=== PATIENT | female | born 1960 | race Caucasian/White ===

== ENCOUNTER 2019-02-19 11:22 | Emergency (ER) | payer MEDICARE, OTHER ==
[2019-02-19 11:44] VITALS: BP 120/77; PULSE 70; RESP 18; TEMP 98.2
--- NOTE | 2019-02-19 11:59 | ED ---
ENT HPI - General Stated complaint: left eye swelling Time Seen by Provider: 02/19/19 11:34 Source: patient, RN notes reviewed, old records reviewed Mode of arrival: ambulatory Limitations: no limitations - History of Present Illness Initial comments: Patient is a 50-year-old female who presents emergency department today complaining of periorbital left eye swelling for the past 2 days. Patient states that she hadn't a "UTI" a few weeks ago. She believes that she scratched the skin around her eye and this led to an infection at this time. She denies any fevers or chills. She denies any pain with extraocular eye movements. She denies any headaches, visual changes. Patient states that she has had no recent sinus drainage or ear pain. No upper respiratory cough or other symptoms. Patient states that she does not require glasses or contacts. She denies any specific eye drainage. - Related Data Home Medications Medication Instructions Recorded Confirmed Atorvastatin [Lipitor] 10 mg PO DAILY 11/05/14 04/06/16 Cholecalciferol [Vitamin D3] 5,000 unit PO DAILY 11/05/14 04/06/16 Fenofibrate Nanocrystallized 145 mg PO DAILY 11/05/14 04/06/16 [Tricor] LORazepam [Ativan] 1 mg PO DAILY PRN 11/05/14 04/06/16 Levothyroxine Sodium [Synthroid] 150 mcg PO DAILY 11/05/14 04/06/16 Lisinopril [Prinivil] 10 mg PO DAILY 11/05/14 04/06/16 Seis [place] Carbonate 300 mg PO BID 11/05/14 04/06/16 Meloxicam [Mobic] 7.5 mg PO BID 11/05/14 04/06/16 Propranolol [Inderal] 20 mg PO BID 11/05/14 04/06/16 Trihexyphenidyl HCl [Artane] 5 mg PO BID 11/05/14 04/06/16 Previous Rx's Medication Instructions Recorded HYDROcodone/APAP 5-325MG [[place] 5] 1 - 2 each PO Q4H PRN #20 tab 11/06/14 Amoxic-Pot Clav 875-125Mg 1 tab PO Q12HR #20 tablet 02/19/19 [Augmentin 875-125] Allergies Allergy/AdvReac Type Severity Reaction Status Date / Time No Known Allergies Allergy Verified 04/06/16 22:52 Review of Systems ROS Statement: Those systems with pertinent positive or pertinent negative responses have been documented in the HPI. ROS Other: All systems not noted in ROS Statement are negative. Past Medical History Past Medical History: Hyperlipidemia, Thyroid Disorder History of Any Multi-Drug Resistant Organisms: None Reported Past Surgical History: Section, Cholecystectomy, Tubal Ligation Past Anesthesia/Blood Transfusion Reactions: No Reported Reaction Past Psychological History: Depression Smoking Status: Current every day smoker Past Alcohol Use History: None Reported Past Drug Use History: None Reported - Past Family History Mother Family Medical History: Cancer General Exam - General Exam Comments Initial Comments: 58-year-old female. Alert and oriented 3. No distress. Limitations: no limitations General appearance: alert, in no apparent distress Head exam: Present: atraumatic, normocephalic, normal inspection Eye exam: Present: PERRL, EOMI. Absent: normal appearance (Patient has surrounding erythema and periorbital swelling over the left eye.), scleral icterus, conjunctival injection, periorbital swelling ENT exam: Present: normal exam, mucous membranes moist Neck exam: Present: normal inspection. Absent: tenderness, meningismus, lymphadenopathy Respiratory exam: Present: normal lung sounds bilaterally. Absent: respiratory distress, wheezes, rales, rhonchi, stridor Cardiovascular Exam: Present: regular rate, normal rhythm, normal heart sounds. Absent: systolic murmur, diastolic murmur, rubs, gallop, clicks GI/Abdominal exam: Present: soft, normal bowel sounds. Absent: distended, tenderness, guarding, rebound, rigid Extremities exam: Present: normal inspection, full ROM, normal capillary refill. Absent: tenderness, pedal edema, joint swelling, calf tenderness Back exam: Present: normal inspection Neurological exam: Present: alert, oriented X3, CN II-XII intact Psychiatric exam: Present: normal affect, normal mood Skin exam: Present: warm, dry, intact, normal color. Absent: rash Course Vital Signs 02/19/19 11:40 Temperature 98.2 F Pulse Rate 70 Respiratory 18 Rate Blood Pressure 120/77 O2 Sat by Pulse 91 L Oximetry Medical Decision Making - Medical Decision Making Patient is a 50-year-old female presents with 3 days of left eye periorbital swelling. She believes that she scratched the corner of her eye. which led to his infection this time. Patient appears to have some periorbital cellulitis. Denies any eye pain or drainage. She otherwise Patient likely well. No fevers headaches or visual disturbances. I discussed the Patient were to develop any of the symptoms to return to emergency department for reevaluation. At this time I'll put the Patient on antibiotics. I discussed proper follow-up with primary care doctor and following up with her PCP on Wednesday. Patient agrees to treatment plan will comply. Return parameters were discussed. Disposition Clinical Impression: Periorbital cellulitis of left eye Disposition: HOME SELF-CARE Condition: Good Instructions (If sedation given, give patient instructions): Periorbital Cellulitis in Adults (ED) Additional Instructions: Patient advised a take the antibiotics. Follow-up with primary care doctor. Return to the emergency department if any alarming signs or symptoms occur. Prescriptions: Amoxic-Pot Clav 875-125Mg [Augmentin 875-125] 1 tab PO Q12HR #20 tablet Is patient prescribed a controlled substance at d/c from ED?: No Referrals: Devyn Worrell MD [Primary Care Provider] - 1-2 days Time of Disposition: 11:53
== END 2019-02-19 12:10 | disposition home or self-care (01) ==
LOC: EC 11:22
DX: L03.213 Periorbital cellulitis (principal); E78.5 Hyperlipidemia, unspecified; E07.9 Disorder of thyroid, unspecified; F17.200 Nicotine dependence, unspecified, uncomplicated; Z79.1 Long term (current) use of non-steroidal anti-inflammatories (NSAID); Z79.890 Hormone replacement therapy; Z79.899 Other long term (current) drug therapy
CPT/HCPCS: 99283

== ENCOUNTER → 2019-04-20 | Outpatient (CLI) | payer MEDICARE, OTHER ==
--- NOTE | 2019-04-21 09:06 | MM ---
Reason for exam: screening (asymptomatic). Last mammogram was performed 1 year and 6 months ago. History: Patient is postmenopausal. Family history of breast cancer in mother at age 60. Excisional biopsy of the left breast, October 2014. Benign US biopsy breast VAD LT of the left breast, October 18, 2014. Physical Findings: A clinical breast exam by your physician is recommended on an annual basis and results should be correlated with mammographic findings. MG 3D Screening Mammo W/Cad Bilateral CC and MLO view(s) were taken. Prior study comparison: October 29, 2017, bilateral MG 3d screening mammo w/cad. July 22, 2016, bilateral MG 3d diag mammo w/cad GERTRUDIS. There are scattered fibroglandular densities. There is no discrete abnormality. No significant changes when compared with prior studies. ASSESSMENT: Negative, BI-RAD 1 RECOMMENDATION: Routine screening mammogram of both breasts in 1 year.
== END | disposition home or self-care (01) ==
LOC: RADMAMWWP 11:41
PROVIDERS: ATTEND Family Medicine
DX: Z12.31 Encounter for screening mammogram for malignant neoplasm of breast (principal)
CPT/HCPCS: 77063; 77067

== ENCOUNTER 2019-07-11 13:33 | Inpatient (IN) | payer MEDICARE, MEDICAID ==
[2019-07-11 14:36] LABS: Glucose,Whole Blood 108 mg/dL (75-99)
[2019-07-11 15:35] LABS: Basophils % (A) 1 %; Eosinophils # (A) 0.1 k/uL (0-0.7); Eosinophils % (A) 1 %; HCT 46.3 % (34.0-46.0); HGB 16.4 gm/dL (11.4-16.0); Lymphocytes # (A) 1.4 k/uL (1.0-4.8); Lymphocytes % (A) 16 %; MCH 31.5 pg (25.0-35.0); MCHC 35.4 g/dL (31.0-37.0); MCV 89.1 fL (80.0-100.0); Mean Platelet Volume 6.8; Monocytes # (A) 0.4 k/uL (0-1.0); Monocytes % (A) 5 %; Neutrophils # (A) 6.7 k/uL (1.3-7.7); Neutrophils % (A) 76 %; Platelet Count 234 k/uL (150-450); RBC 5.19 m/uL (3.80-5.40); WBC 8.8 k/uL (3.8-10.6)
[2019-07-11 15:43] LABS: ALT 29 U/L (9-52); AST 25 U/L (14-36); Acetaminophen <10.0 ug/mL; African American GFR (CKD) >90 (>60 ml/min/1.73 sqM); Albumin 4.3 g/dL (3.5-5.0); Alcohol <10 mg/dL; Alkaline Phosphatase 82 U/L (38-126); Anion Gap 9 mmol/L; Blood Urea Nitrogen 5 mg/dL (7-17); Calcium 10.3 mg/dL (8.4-10.2); Carbon Dioxide 22 mmol/L (22-30); Chloride 111 mmol/L (98-107); Creatine Kinase 64 U/L (30-135); Glucose 97 mg/dL (74-99); Potassium 3.4 mmol/L (3.5-5.1); Salicylate <1.0 mg/dL; Sodium 142 mmol/L (137-145); Total Bilirubin 0.6 mg/dL (0.2-1.3); Total Protein 7.1 g/dL (6.3-8.2)
[2019-07-11 15:46] LABS: Appearance,Urine Clear (Clear); Bilirubin,Urine Negative (Negative); Blood,Urine Negative (Negative); Color,Urine Light Yellow; Glucose,Urine (UA) Negative (Negative); Ketones,Urine Negative (Negative); Leukocyte Esterase,Urine Negative (Negative); Nitrite,Urine Negative (Negative); PH, Urine 6.5 (5.0-8.0); Protein,Urine Negative (Negative); Specific Gravity,Urine 1.002 (1.001-1.035); Urobilinogen,Urine <2.0 mg/dL (<2.0)
--- NOTE | 2019-07-11 15:46 | XR ---
EXAMINATION TYPE: XR chest 2V DATE OF EXAM: 07/11/2019 COMPARISON: NONE HISTORY: Altered mental status TECHNIQUE: Frontal and lateral views of the chest are obtained. FINDINGS: There is no focal air space opacity, pleural effusion, or pneumothorax seen. The cardiac silhouette size is within normal limits. The osseous structures are intact. Patient is rotated. The re are overlying cardiac leads. IMPRESSION: No acute cardiopulmonary process.
[2019-07-11 16:07] LABS: INR 0.9 (<1.2); Partial Thromboplastin Time 22.8 sec (22.0-30.0); Prothrombin Time 9.6 sec (9.0-12.0)
[2019-07-11 16:09] LABS: Amphetamine Screen,Urine Not Detected (NotDetected); Barbiturate Screen,Urine Not Detected (NotDetected); Benzodiazepines Screen,Urine Detected (NotDetected); Cocaine Screen,Urine Not Detected (NotDetected); Methadone Screen, Urine Not Detected (NotDetected); Opiate Screen,Urine Not Detected (NotDetected); Oxycodone Screen, Urine Not Detected (NotDetected); Phencyclidine Screen,Urine Not Detected (NotDetected); Tricyclic Antidepressant,Urine Not Detected (NotDetected); Urn Cannabinoid Scrn Detected (NotDetected)
--- NOTE | 2019-07-11 16:23 | ED ---
General Adult HPI <HoldeningaKamlesh Garrick - Last Filed: 07/11/19 19:18> - General Source: EMS Mode of arrival: EMS Limitations: altered mental status <Vinnie Benedictah Sandra - Last Filed: 07/16/19 00:27> - General Chief complaint: Psychiatric Symptoms Stated complaint: Mental health Time Seen by Provider: 07/11/19 13:50 - History of Present Illness Initial comments: The patient is a 58-year-old female with past history of bipolar disorder on lithium who presents emergency room in with abnormal behavior. She was found outside of her home stating that she did not want to go back into her home. She had 4 cigarettes that were in her mouth, all of which were unlit. She had a dog leash tied to a car. When asked why she had it, she reported she didn't want her car to get stolen. The patient not provide any additional history. Therefore she was brought into the emergency department. It is noted the p atient's history that she has been on lithium however this is all we can find. She has never been hospital at her facility for psychiatric issues. The remainder of the HPI is limited because of the patient's current condition (Felicia Benedict) - Related Data Home Medications Medication Instructions Recorded Confirmed Atorvastatin [Lipitor] 10 mg PO DAILY 11/05/14 07/11/19 LORazepam [Ativan] 0.5 - 1 mg PO DAILY PRN 11/05/14 07/11/19 Levothyroxine Sodium [Synthroid] 150 mcg PO DAILY 11/05/14 07/11/19 Trihexyphenidyl HCl [Artane] 5 mg PO BID 11/05/14 07/11/19 Fenofibrate [Lofibra] 160 mg PO DAILY 07/11/19 07/11/19 [place] Carbonate [Lithobid] 300 mg PO QAM 07/11/19 07/11/19 [place] Carbonate [Lithobid] 600 mg PO HS 07/11/19 07/11/19 Multivitamins, Thera [Multivitamin 1 tab PO DAILY 07/11/19 07/11/19 (formulary)] Oxybutynin Xl [Ditropan Xl] 5 mg PO DAILY 07/11/19 07/11/19 Propranolol HCl [Propranolol HCl 60 mg PO DAILY 07/11/19 07/11/19 ER] fluPHENAZine DECANOATE [Prolixin 25 mg IM Q14D 07/11/19 07/11/19 Decanoate] Allergies Allergy/AdvReac Type Severity Reaction Status Date / Time No Known Allergies Allergy Verified 07/15/19 21:51 Review of Systems ROS Other: All systems not noted in ROS Statement are negative. <NancypaulingaDarshanjair Mccauley - Last Filed: 07/11/19 19:18> ROS Other: All systems not noted in ROS Statement are negative. <Felicia Benedict - Last Filed: 07/16/19 00:27> ROS Statement: Those systems with pertinent positive or pertinent negative responses have been documented in the HPI. Past Medical History Past Medical History: Hyperlipidemia, Thyroid Disorder History of Any Multi-Drug Resistant Organisms: None Reported Past Surgical History: Section, Cholecystectomy, Tubal Ligation Past Anesthesia/Blood Transfusion Reactions: No Reported Reaction Past Psychological History: Depression Smoking Status: Current every day smoker Past Alcohol Use History: None Reported Past Drug Use History: None Reported - Past Family History Mother Family Medical History: Cancer <Felicia Benedict - Last Filed: 07/16/19 00:27> General Exam Limitations: altered mental status General appearance: alert, in no apparent distress Head exam: Present: atraumatic, normocephalic, normal inspection Eye exam: Present: normal appearance, PERRL, EOMI. Absent: scleral icterus, conjunctival injection, periorbital swelling ENT exam: Present: normal exam, mucous membranes moist Neck exam: Present: normal inspection. Absent: tenderness, meningismus, lymphadenopathy Respiratory exam: Present: normal lung sounds bilaterally. Absent: respiratory distress, wheezes, rales, rhonchi, stridor Cardiovascular Exam: Present: regular rate, normal rhythm, normal heart sounds. Absent: systolic murmur, diastolic murmur, rubs, gallop, clicks GI/Abdominal exam: Present: soft, normal bowel sounds. Absent: distended, tenderness, guarding, rebound, rigid Extremities exam: Present: normal inspection, full ROM, normal capillary refill. Absent: tenderness, pedal edema, joint swelling, calf tenderness Back exam: Present: normal inspection Neurological exam: Present: alert, altered, CN II-XII intact Psychiatric exam: Present: anxious, flat affect Skin exam: Present: warm, dry, intact, normal color. Absent: rash <Felicia Benedict - Last Filed: 07/16/19 00:27> Course <Kamlesh Santiago - Last Filed: 07/11/19 19:18> Vital Signs 07/11/19 07/11/19 13:49 19:24 Temperature 98.9 F 98.4 F Pulse Rate 87 80 Respiratory 18 18 Rate Blood Pressure 119/91 116/58 O2 Sat by Pulse 94 L 94 L Oximetry - Reevaluation(s) Reevaluation #1: 07/11/19 19:18 She was made medically cleared seen and evaluated by psychiatry (Kamlesh Santiago) EKG Findings - EKG Comments: EKG Findings:: EKG demonstrates a normal sinus rhythm with a ventricular rate of 80. DE interval 200. QRS 80. QTC 477. There are no acute ST segment elevations or depressions concerning for ischemic changes sent for Parkinson White or Brugada <Vinnie Benedictah Sandra - Last Filed: 07/16/19 00:27> Medical Decision Making - Lab Data Result diagrams: 07/11/19 15:23 07/11/19 15:23 <Kamlesh Santiago - Last Filed: 07/11/19 19:18> - Lab Data Result diagrams: 07/11/19 15:23 07/13/19 09:47 <Felicia Benedict - Last Filed: 07/16/19 00:27> - Medical Decision Making 58 female will be admitted for psychiatric inpatient evaluation and treatment, patient consents to treatment (Kamlesh Santiago) Upon arrival the patient is placed in room 14. A thorough history and physical exam was attempted. I did recommend laboratory studies and a CT of the patient's brain. Laboratory studies are essentially unremarkable. He is therapeutic lithium level at 0.6. Urine drug screen is positive for benzos and marijuana. Urinalysis is negative. CT of the patient's brain demonstrates no acute findings. Chest x-ray demonstrates no acute cardiopulmonary process. I reevaluated the patient and she continues to not be able to tell me anything. We called the patient's daughter who states that she is never acted like this before. We then called [facility] as the patient is currently at a patient there. She did call them 3 times today. Because of these phone calls, he did prompt [facility] to call EMS who brought the patient into the emergency room. I did ask him he has to evaluate the patient. We are currently awaiting input from the psychiatrist (Felicia Benedict) - Lab Data Lab Results 07/11/19 07/11/19 07/11/19 Range/Units 14:34 15:23 15:23 WBC (3.8-10.6) k/uL RBC (3.80-5.40) m/uL Hgb (11.4-16.0) gm/dL Hct (34.0-46.0) % MCV (80.0-100.0) fL MCH (25.0-35.0) pg MCHC (31.0-37.0) g/dL RDW (11.5-15.5) % Plt Count (150-450) k/uL Neutrophils % % Lymphocytes % % Monocytes % % Eosinophils % % Basophils % % Neutrophils # (1.3-7.7) k/uL Lymphocytes # (1.0-4.8) k/uL Monocytes # (0-1.0) k/uL Eosinophils # (0-0.7) k/uL Basophils # (0-0.2) k/uL PT (9.0-12.0) sec INR (<1.2) APTT (22.0-30.0) sec Sodium 142 (137-145) mmol/L Potassium 3.4 L (3.5-5.1) mmol/L Chloride 111 H (98-107) mmol/L Carbon Dioxide 22 (22-30) mmol/L Anion Gap 9 mmol/L BUN 5 L (7-17) mg/dL Creatinine 0.82 (0.52-1.04) mg/dL Est GFR (CKD-EPI)AfAm >90 (>60 ml/min/1.73 sqM) Est GFR (CKD-EPI)NonAf 79 (>60 ml/min/1.73 sqM) Glucose 97 (74-99) mg/dL POC Glucose (mg/dL) 108 H (75-99) mg/dL POC Glu Cardiology Coordinator ID Radha Peng Calcium 10.3 H (8.4-10.2) mg/dL Total Bilirubin 0.6 (0.2-1.3) mg/dL AST 25 (14-36) U/L ALT 29 (9-52) U/L Alkaline Phosphatase 82 (38-126) U/L Ammonia 9 (<30) umol/L Creatine Kinase 64 (30-135) U/L Total Protein 7.1 (6.3-8.2) g/dL Albumin 4.3 (3.5-5.0) g/dL Urine Color Urine Appearance (Clear) Urine pH (5.0-8.0) Ur Specific [place] (1.001-1.035) Urine Protein (Negative) Urine Glucose (UA) (Negative) Urine Ketones (Negative) Urine Blood (Negative) Urine Nitrite (Negative) Urine Bilirubin (Negative) Urine Urobilinogen (<2.0) mg/dL Ur Leukocyte Esterase (Negative) Salicylates <1.0 mg/dL Urine Opiates Screen (NotDetected) Ur Oxycodone Screen (NotDetected) Urine Methadone Screen (NotDetected) Ur Propoxyphene Screen (NotDetected) Acetaminophen <10.0 ug/mL Ur Barbiturates Screen (NotDetected) U Tricyclic Antidepress (NotDetected) Ur Phencyclidine Scrn (NotDetected) Ur Amphetamines Screen (NotDetected) U Methamphetamines Scrn (NotDetected) U Benzodiazepines Scrn (NotDetected) [place] mmol/L Urine Cocaine Screen (NotDetected) U Marijuana (THC) Screen (NotDetected) Serum Alcohol <10 mg/dL 07/11/19 07/11/19 07/11/19 Range/Units 15:23 15:23 15:23 WBC 8.8 (3.8-10.6) k/uL RBC 5.19 (3.80-5.40) m/uL Hgb 16.4 H (11.4-16.0) gm/dL Hct 46.3 H (34.0-46.0) % MCV 89.1 (80.0-100.0) fL MCH 31.5 (25.0-35.0) pg MCHC 35.4 (31.0-37.0) g/dL RDW 13.0 (11.5-15.5) % Plt Count 234 (150-450) k/uL Neutrophils % 76 % Lymphocytes % 16 % Monocytes % 5 % Eosinophils % 1 % Basophils % 1 % Neutrophils # 6.7 (1.3-7.7) k/uL Lymphocytes # 1.4 (1.0-4.8) k/uL Monocytes # 0.4 (0-1.0) k/uL Eosinophils # 0.1 (0-0.7) k/uL Basophils # 0.0 (0-0.2) k/uL PT 9.6 (9.0-12.0) sec INR 0.9 (<1.2) APTT 22.8 (22.0-30.0) sec Sodium (137-145) mmol/L Potassium (3.5-5.1) mmol/L Chloride (98-107) mmol/L Carbon Dioxide (22-30) mmol/L Anion Gap mmol/L BUN (7-17) mg/dL Creatinine (0.52-1.04) mg/dL Est GFR (CKD-EPI)AfAm (>60 ml/min/1.73 sqM) Est GFR (CKD-EPI)NonAf (>60 ml/min/1.73 sqM) Glucose (74-99) mg/dL POC Glucose (mg/dL) (75-99) mg/dL POC Glu Cardiology Coordinator ID Calcium (8.4-10.2) mg/dL Total Bilirubin (0.2-1.3) mg/dL AST (14-36) U/L ALT (9-52) U/L Alkaline Phosphatase (38-126) U/L Ammonia (<30) umol/L Creatine Kinase (30-135) U/L Total Protein (6.3-8.2) g/dL Albumin (3.5-5.0) g/dL Urine Color Light Yellow Urine Appearance Clear (Clear) Urine pH 6.5 (5.0-8.0) Ur Specific [place] 1.002 (1.001-1.035) Urine Protein Negative (Negative) Urine Glucose (UA) Negative (Negative) Urine Ketones Negative (Negative) Urine Blood Negative (Negative) Urine Nitrite Negative (Negative) Urine Bilirubin Negative (Negative) Urine Urobilinogen <2.0 (<2.0) mg/dL Ur Leukocyte Esterase Negative (Negative) Salicylates mg/dL Urine Opiates Screen Not Detected (NotDetected) Ur Oxycodone Screen Not Detected (NotDetected) Urine Methadone Screen Not Detected (NotDetected) Ur Propoxyphene Screen Not Detected (NotDetected) Acetaminophen ug/mL Ur Barbiturates Screen Not Detected (NotDetected) U Tricyclic Antidepress Not Detected (NotDetected) Ur Phencyclidine Scrn Not Detected (NotDetected) Ur Amphetamines Screen Not Detected (NotDetected) U Methamphetamines Scrn Not Detected (NotDetected) U Benzodiazepines Scrn Detected H (NotDetected) [place] mmol/L Urine Cocaine Screen Not Detected (NotDetected) U Marijuana (THC) Screen Detected H (NotDetected) Serum Alcohol mg/dL 07/11/19 Range/Units 15:23 WBC (3.8-10.6) k/uL RBC (3.80-5.40) m/uL Hgb (11.4-16.0) gm/dL Hct (34.0-46.0) % MCV (80.0-100.0) fL MCH (25.0-35.0) pg MCHC (31.0-37.0) g/dL RDW (11.5-15.5) % Plt Count (150-450) k/uL Neutrophils % % Lymphocytes % % Monocytes % % Eosinophils % % Basophils % % Neutrophils # (1.3-7.7) k/uL Lymphocytes # (1.0-4.8) k/uL Monocytes # (0-1.0) k/uL Eosinophils # (0-0.7) k/uL Basophils # (0-0.2) k/uL PT (9.0-12.0) sec INR (<1.2) APTT (22.0-30.0) sec Sodium (137-145) mmol/L Potassium (3.5-5.1) mmol/L Chloride (98-107) mmol/L Carbon Dioxide (22-30) mmol/L Anion Gap mmol/L BUN (7-17) mg/dL Creatinine (0.52-1.04) mg/dL Est GFR (CKD-EPI)AfAm (>60 ml/min/1.73 sqM) Est GFR (CKD-EPI)NonAf (>60 ml/min/1.73 sqM) Glucose (74-99) mg/dL POC Glucose (mg/dL) (75-99) mg/dL POC Glu Cardiology Coordinator ID Calcium (8.4-10.2) mg/dL Total Bilirubin (0.2-1.3) mg/dL AST (14-36) U/L ALT (9-52) U/L Alkaline Phosphatase (38-126) U/L Ammonia (<30) umol/L Creatine Kinase (30-135) U/L Total Protein (6.3-8.2) g/dL Albumin (3.5-5.0) g/dL Urine Color Urine Appearance (Clear) Urine pH (5.0-8.0) Ur Specific [place] (1.001-1.035) Urine Protein (Negative) Urine Glucose (UA) (Negative) Urine Ketones (Negative) Urine Blood (Negative) Urine Nitrite (Negative) Urine Bilirubin (Negative) Urine Urobilinogen (<2.0) mg/dL Ur Leukocyte Esterase (Negative) Salicylates mg/dL Urine Opiates Screen (NotDetected) Ur Oxycodone Screen (NotDetected) Urine Methadone Screen (NotDetected) Ur Propoxyphene Screen (NotDetected) Acetaminophen ug/mL Ur Barbiturates Screen (NotDetected) U Tricyclic Antidepress (NotDetected) Ur Phencyclidine Scrn (NotDetected) Ur Amphetamines Screen (NotDetected) U Methamphetamines Scrn (NotDetected) U Benzodiazepines Scrn (NotDetected) [place] 0.6 mmol/L Urine Cocaine Screen (NotDetected) U Marijuana (THC) Screen (NotDetected) Serum Alcohol mg/dL Disposition Is patient prescribed a controlled substance at d/c from ED?: No <Kamlesh Santiago - Last Filed: 07/11/19 19:18> <Felicia Benedict - Last Filed: 07/16/19 00:27> Clinical Impression: Acute psychosis Disposition: TRANSFER TO PSYCH HOSP/UNIT Condition: Fair
--- NOTE | 2019-07-11 16:36 | CT ---
EXAMINATION TYPE: CT brain wo con DATE OF EXAM: 07/11/2019 COMPARISON: None HISTORY: confusion CT DLP: 1099.4 mGycm Automated exposure control for dose reduction was used. Helical imaging through the brain. FINDINGS: No hemorrhage or hydrocephalus. Calvarium is intact. Paranasal sinuses and mastoid air cells as visua lized are normal. Orbits show symmetric appearance. IMPRESSION: NORMAL BRAIN CT
[2019-07-11] MEDS ORDERED: ACETAMINOPHEN TAB 325 MG TAB PO PRN (20:01)
[2019-07-11] MEDS ORDERED: ZIPRASIDONE 20 MG VIAL IM PRN (20:01)
[2019-07-11] MEDS ORDERED: MAGNESIUM HYDROXIDE 2,400 MG/10 ML CUP PO PRN (20:01)
[2019-07-11] MEDS ORDERED: MELATONIN 3 MG TABLET PO PRN (20:05)
[2019-07-11] MEDS ORDERED: LITHIUM CARBONATE PO SCH (21:00)
[2019-07-11] MEDS: NICOTINE 14MG/24HR PATCH TRANSDERM SCH (22:00)
[2019-07-11] MEDS: TRIHEXYPHENIDYL 2 MG TAB PO SCH (22:02)
[2019-07-12] MEDS ORDERED: LEVOTHYROXINE 75 MCG TAB ONE (00:20)
[2019-07-12] MEDS ORDERED: LITHIUM CARBONATE 300 MG CAP ONE (00:20)
[2019-07-12] MEDS: NICOTINE 14MG/24HR PATCH TRANSDERM SCH (08:34)
[2019-07-12] MEDS: MULTIVITAMINS, THERA 1 EACH TAB PO SCH (08:35)
[2019-07-12] MEDS: LEVOTHYROXINE 75 MCG TAB PO SCH (08:35)
[2019-07-12] MEDS ORDERED: LITHIUM CARBONATE PO SCH (09:00)
--- NOTE | 2019-07-12 10:23 | P.HP ---
Psychiatric H&P - . History & Physical: Allergies Allergy/AdvReac Type Severity Reaction Status Date / Time No Known Allergies Allergy Verified 07/11/19 15:27 Vital Signs Temp 98.4 F 07/11/19 19:24 Pulse 80 07/11/19 22:12 Resp 16 07/11/19 19:40 BP 142/96 07/11/19 22:12 Pulse Ox 94 L 07/11/19 19:24 Intake & Output 07/11/19 07/12/19 07/12/19 18:59 06:59 18:59 Weight 81.647 kg Laboratory Last Values WBC 8.8 k/uL (3.8-10.6) 07/11/19 15: RBC 5.19 m/uL (3.80-5.40) 07/11/19 15: Hgb 16.4 gm/dL (11.4-16.0) H 07/11/19 15:23 Hct 46.3 % (34.0-46.0) H 07/11/19 15: MCV 89.1 fL (80.0-100.0) 07/11/19 15:23 MCH 31.5 pg (25.0-35.0) 07/11/19 15: MCHC 35.4 g/dL (31.0-37.0) 07/11/19 15:23 RDW 13.0 % (11.5-15.5) 07/11/19 15:23 Plt Count 234 k/uL (150-450) 07/11/19 15:23 Neutrophils % 76 % 07/11/19 15: Lymphocytes % 16 % 07/11/19 15:23 Monocytes % 5 % 07/11/19 15:23 Eosinophils % 1 % 07/11/19 15:23 Basophils % 1 % 07/11/19 15:23 Neutrophils # 6.7 k/uL (1.3-7.7) 07/11/19 15: Lymphocytes # 1.4 k/uL (1.0-4.8) 07/11/19 15:23 Monocytes # 0.4 k/uL (0-1.0) 07/11/19 15: Eosinophils # 0.1 k/uL (0-0.7) 07/11/19 15:23 Basophils # 0.0 k/uL (0-0.2) 07/11/19 15:23 PT 9.6 sec (9.0-12.0) 07/11/19 15: INR 0.9 (<1.2) 07/11/19 15:23 APTT 22.8 sec (22.0-30.0) 07/11/19 15:23 Sodium 142 mmol/L (137-145) 07/11/19 15: Potassium 3.4 mmol/L (3.5-5.1) L 07/11/19 15: Chloride 111 mmol/L (98-107) H 07/11/19 15:23 Carbon Dioxide 22 mmol/L (22-30) 07/11/19 15: Anion Gap 9 mmol/L 07/11/19 15: BUN 5 mg/dL (7-17) L 07/11/19 15: Creatinine 0.82 mg/dL (0.52-1.04) 07/11/19 15:23 Est GFR (CKD-EPI)AfAm >90 (>60 ml/min/1.73 sqM) 07/11/19 15:23 Est GFR (CKD-EPI)NonAf 79 (>60 ml/min/1.73 sqM) 07/11/19 15: Glucose 97 mg/dL (74-99) 07/11/19 15:23 POC Glucose (mg/dL) 108 mg/dL (75-99) H 07/11/19 14:34 POC Glu Qa Reviewer ID Radha Peng 07/11/19 14:34 Calcium 10.3 mg/dL (8.4-10.2) H 07/11/19 15:23 Total Bilirubin 0.6 mg/dL (0.2-1.3) 07/11/19 15:23 AST 25 U/L (14-36) 07/11/19 15:23 ALT 29 U/L (9-52) 07/11/19 15:23 Alkaline Phosphatase 82 U/L (38-126) 07/11/19 15:23 Ammonia 9 umol/L (<30) 07/11/19 15:23 Creatine Kinase 64 U/L (30-135) 07/11/19 15:23 Total Protein 7.1 g/dL (6.3-8.2) 07/11/19 Albumin 4.3 g/dL (3.5-5.0) 07/11/19 Triglycerides 207 mg/dL (<150) H 07/12/19 08:14 Cholesterol 136 mg/dL (<200) 07/12/19 08:14 LDL Cholesterol, Calc 62 mg/dL (0-99) 07/12/19 08:14 HDL Cholesterol 33 mg/dL (40-60) L 07/12/19 08:14 TSH 0.474 mIU/L (0.465-4.680) 07/12/19 08:14 Urine Color Light Yellow 07/11/19 Urine Appearance Clear (Clear) 07/11/19 Urine pH 6.5 (5.0-8.0) 07/11/19 Ur Specific [place] 1.002 (1.001-1.035) 07/11/19 Urine Protein Negative (Negative) 07/11/19 Urine Glucose (UA) Negative (Negative) 07/11/19 Urine Ketones Negative (Negative) 07/11/19 Urine Blood Negative (Negative) 07/11/19 Urine Nitrite Negative (Negative) 07/11/19 Urine Bilirubin Negative (Negative) 07/11/19 Urine Urobilinogen <2.0 mg/dL (<2.0) 07/11/19 Ur Leukocyte Esterase Negative (Negative) 07/11/19 Salicylates <1.0 mg/dL 07/11/19 Urine Opiates Screen Not Detected (NotDetected) 07/11/19 Ur Oxycodone Screen Not Detected (NotDetected) 07/11/19: Urine Methadone Screen Not Detected (NotDetected) 07/11/19 Ur Propoxyphene Screen Not Detected (NotDetected) 07/11/19 Acetaminophen <10.0 ug/mL 07/11/19 Ur Barbiturates Screen Not Detected (NotDetected) 07/11/19 U Tricyclic Antidepress Not Detected (NotDetected) 07/11/19 Ur Phencyclidine Scrn Not Detected (NotDetected) 07/11/19 15:23 Ur Amphetamines Screen Not Detected (NotDetected) 07/11/19 15:23 U Methamphetamines Scrn Not Detected (NotDetected) 07/11/19 15:23 U Benzodiazepines Scrn Detected (NotDetected) H 07/11/19 15:23 [place] 0.6 mmol/L 07/11/19 15:23 Urine Cocaine Screen Not Detected (NotDetected) 07/11/19 15:23 U Marijuana (THC) Screen Detected (NotDetected) H 07/11/19 15:23 Serum Alcohol <10 mg/dL 07/11/19 15:23 07/12/19 10:13 IDENTIFYING DATA: This patient is a 58-year-old female who was admitted to the mental health unit through the emergency room for confusion and suspected psychosis. HPI: The notes from the EPS assessment were reviewed. The patient was agitated confused. Apparently the police were called as she kept calling her outpatient psychiatrist's office numerous times. She was brought to the hospital for evaluation. This morning the patient's found in the hallway she follows me to an interview room. She is verbally agitated she initially states that she is confused and then states that she is not confused. She continues to yell "I don't know why I'm here". I was able to verbally redirect her so she was quieter but again she escalated fairly quickly. She started to demand a discharged mental health unit and Yelling "I want to go home". She yelled "my daughter needs me".. The patient stated "I don't know" when asked several questions. The session had to be terminated due to her level of agitation. PAST PSYCHIATRIC HISTORY: There is documentation from nursing that they spoke with the patient's daughter. She indicated that the patient has a history of bipolar depression. She apparently has been attending [facility] since 2000. She is currently on lithium ER 300 mg in the morning and 600 mg at bedtime Artane 5 mg twice daily and Prolixin Decanoate 25 mg every 2 weeks. We were informed that she has been on numerous other medications in the past but no specifics were provided. The patient denies having any suicidal thoughts. She indicates she is compliant with her medication. Her lithium level in the emergency room was 0.6. We were informed that the patient was placed at [facility] 28 years ago. PMH: Hypothyroidism, hyperlipidemia, hypertension ALLERGIES: NO KNOWN DRUG ALLERGIES MEDICATIONS: Refer to [facility] CHEMICAL DEPENDENCY HISTORY: The patient reports no use of alcohol marijuana or illicit drugs she states she's never been placed in residential treatment for chemical dependency reasons, her drug screen was positive for marijuana and benzodiazepines FAMILY PSYCHIATRIC HISTORY: Unknown FAMILY CHEMICAL DEPENDENCY HISTORY: Unknown SOCIAL HISTORY: The patient is 58 years old she states she resides with her daughter, she cannot remember how many children she has. She indicates she did not graduate from high school she is unemployed. She states she has siblings but cannot remember how many brothers or sisters she has. She endorses no legal history she endorses no abuse history. Again at this time the patient is an unreliable historian. MENTAL STATUS EXAM: The patient is a shorter statured female appearing her stated age. She has a disheveled appearance she is dressed in hospital gowns. She is found ambulating in the hallway and follows me to an interview room. She will not stay seated in the chair and often stands and approaches me she has to be redirected. She indicates she will not be violent physically. She becomes loud several times during the session which required redirection. Ultimately I had to direct her out of the interview room because of her agitation. She continued to yell "I want to go home". Insight and judgment are poor as she has no understanding as to why she was admitted. She demonstrates no involuntary repetitive movements. She blanketly denies having any symptoms when I go through a psychiatric review of symptoms. Again she is an unreliable historian. She is oriented to person and place as "where a psychiatrist is" she was able to register 3 words she refused to participate in any other cognitive screening. STRENGTHS/WEAKNESSES: Strengths: Presumed housing, participation with community mental health weaknesses: Current confusion likely rooted in psychosis INTELLECTUAL FUNCTIONING: Presumed to be average IMPRESSIONS: [] 1. Psychosis unspecified, rule out bipolar 1 disorder manic with psychosis versus schizoaffective disorder PLAN: The patient has been admitted to the mental health unit, it appears she has signed in voluntarily. Her lithium carbonate has been continued 300 mg in the morning 600 mg at bedtime as well as the Artane 5 mg twice daily. Her last Prolixin decanoate injection of 25 mg was given on 07/05/2019. We are attempting to obtain medication review records from [facility]. I will consider supplementing the Prolixin Decanoate with oral Prolixin or another antipsychotic. She will be seen by internal medicine for routine history and physical exam. Social work will attempt to meet with the patient to complete a psychosocial assessment and begin discharge planning. We will monitor her for safety including her by mouth intake and inability to ambulate. She is encouraged to appropriately participate in the milieu. If she is refusing medications we will need to initiate a petition and clinical certificates.
[2019-07-12] MEDS: FENOFIBRATE 160 MG TAB PO SCH (11:03)
[2019-07-12] MEDS: ATORVASTATIN 10 MG TAB PO SCH (11:03)
[2019-07-12] MEDS: PROPRANOLOL LA 60 MG CAP.SA.24H PO SCH (11:04)
[2019-07-12] MEDS: LITHIUM CARBONATE 300 MG CAP PO SCH ×3 (11:04→21:49)
[2019-07-12] MEDS: TRIHEXYPHENIDYL 2 MG TAB PO SCH ×2 (11:04→21:49)
[2019-07-12 17:32] LABS: Hemoglobin A1C 4.6 % (4.0-6.0)
[2019-07-12] MEDS: OXYBUTYNIN XL 5 MG TAB.ER.24 PO SCH (18:21)
[2019-07-12] MEDS ORDERED: POTASSIUM CHLORIDE ER 20 MEQ TAB.ER PO STA (22:23)
--- NOTE | 2019-07-12 22:29 | P.MDCNMH ---
History of Present Illness H&P Date: 07/12/19 Chief Complaint: Medical management 58-year-old female with history of hypothyroid and bipolar disorder Patient was brought into the hospital due to abnormal behavior, was reported that she was found outside of her house with 4 cigarettes in her mouth and left, with a dog leash attached the car claiming that she doesn't want her car to be stolen she was waiting outside looks disheveled. Right into the hospital for evaluation patient doesn't recall any of these events. She denies any suicidal or homicidal ideation. She reports that she is compliant with her medications. She currently have no complaints denies any chest pain trouble breathing fevers chills headache focal neuro deficits abdominal pain nausea vomiting or GI bleeding Labs reviewed patient has polycythemia she admits to 3 pack a day of smoking cigarettes. Soles and noted to have mild hypercalcemia and mild hypokalemia Review of Systems Pertinent positives as noted in HPI. All other systems were reviewed and are negative Past Medical History Past Medical History: Hyperlipidemia, Thyroid Disorder History of Any Multi-Drug Resistant Organisms: None Reported Past Surgical History: Section, Cholecystectomy, Tubal Ligation Past Anesthesia/Blood Transfusion Reactions: No Reported Reaction Past Psychological History: Depression Smoking Status: Current every day smoker Past Alcohol Use History: None Reported Past Drug Use History: None Reported - Past Family History Mother Family Medical History: Cancer Medications and Allergies Home Medications Medication Instructions Recorded Confirmed Type Atorvastatin [Lipitor] 10 mg PO DAILY 11/05/14 07/11/19 History LORazepam [Ativan] 0.5 - 1 mg PO DAILY PRN 11/05/14 07/11/19 History Levothyroxine Sodium [Synthroid] 150 mcg PO DAILY 11/05/14 07/11/19 History Trihexyphenidyl HCl [Artane] 5 mg PO BID 11/05/14 07/11/19 History Fenofibrate [Lofibra] 160 mg PO DAILY 07/11/19 07/11/19 History Winters Carbonate [Lithobid] 300 mg PO QAM 07/11/19 07/11/19 History Winters Carbonate [Lithobid] 600 mg PO HS 07/11/19 07/11/19 History Multivitamins, Thera [Multivitamin 1 tab PO DAILY 07/11/19 07/11/19 History (formulary)] Oxybutynin Xl [Ditropan Xl] 5 mg PO DAILY 07/11/19 07/11/19 History Propranolol HCl [Propranolol HCl 60 mg PO DAILY 07/11/19 07/11/19 History ER] fluPHENAZine DECANOATE [Prolixin 25 mg IM Q14D 07/11/19 07/11/19 History Decanoate] Allergies Allergy/AdvReac Type Severity Reaction Status Date / Time No Known Allergies Allergy Verified 07/11/19 15:27 Physical Exam Vitals: Vital Signs Temp Pulse Pulse Resp BP BP Pulse Ox 07/11/19 22:12 80 142/96 07/11/19 19:40 79 16 123/47 07/11/19 19:24 98.4 F 80 18 116/58 94 L Constitutional: No acute distress, conversant, pleasant Eyes: Anicteric sclerae, moist conjunctiva, no lid-lag Pupils equal round reactive to light ENMT: NC/AT Oropharynx clear, no erythema, exudates Neck: Supple, FROM, no masses, or JVD No carotid bruits No thyromegaly Lungs: Clear to auscultation Clear to percussion Normal respiratory effort, no accessory muscle use Cardiovascular: Heart regular in rate and rhythm, No murmurs, gallops, or rubs No peripheral edema Abdominal: Soft Nontender, no guarding, rebound or rigidity Abdomen moving with respiration Normoactive bowel sounds No hepatomegaly, No splenomegaly No palpable mass No abdominal wall hernia noted Skin: Normal temperature, tone, texture, turgor No induration No subcutaneous nodules No rash, lesions No ulcers Extremities: No digital cyanosis No clubbing Pedal pulses intact and symmetrical Radial pulses intact and symmetrical No calf tenderness Psychiatric: Alert and oriented to person, place and time Appropriate affect fair judgment Neuro Muscles Strength 5/5 in all 4 extremities Sensation to light touch grossly present throughout Cranial nerves II-XII grossly intact No focal sensory deficits Lymphatics: no palpable cervical or supraclavicular , or inguinal lymph nodes Cranial Nerve Examination - Cranial Nerves Cranial Nerve II- Optic: Intact Cranial Nerve III- Oculomotor: Intact Cranial Nerve IV- Trochlear: Intact Cranial Nerve V- Trigeminal: Intact Cranial Nerve - Abducens: Intact Cranial Nerve VII- Facial: Intact Cranial Nerve VIII- Auditory: Intact Cranial Nerve IX- Glossopharyngeal: Intact Cranial Nerve X- Vagus: Intact Cranial Nerve XI- Accessory: Intact Cranial Nerve XII- Hypoglossal: Intact Results CBC & Chem 7: 07/11/19 15:23 07/11/19 15:23 Labs: Abnormal Lab Results - Last 24 Hours (Table) 07/12/19 Range/Units 08:14 Triglycerides 207 H (<150) mg/dL HDL Cholesterol 33 L (40-60) mg/dL Assessment and Plan Assessment: 58-year-old female with history of bipolar disorder hypothyroid. Patient takes lithium home. She was brought into the hospital due to abnormal behavior. Currently denies any medical complaints. Minutes was counseled to assist in medical management patient has electrolyte abnormalities and polycythemia Plan: Electrolyte abnormalities Hypokalemia, replace, follow-up potassium level and magnesium level Mild hypercalcemia, recheck levels in the morning Secondary polycythemia secondary to heavy tobacco smoking Continue to follow up closely Patient denies any itching or pruritus. Abnormal behavior, history of bipolar disorder Patient is on lithium Check lithium level Hypothyroidism Resume levothyroxine Heavy tobacco smoking 3 packs a day Dictating replacement therapy offered Patient counseled to quit smoking DVT prophylaxis patient low risk patient is ambulatory Thank you for allowing us to participate in the care of this patient. We will follow peripherally. Do not hesitate to contact us with questions. Someone can be reached from the [facility] hospitalist group at all hours of the day at [phone].
[2019-07-13] MEDS: LEVOTHYROXINE 75 MCG TAB PO SCH (06:43)
--- NOTE | 2019-07-13 09:09 | P.PN ---
Progress Note - Text Interval history: The patient is found in the hallway she follows me to an interview room. She indicates that her mood is much better. She states her mood is good. She states she was so upset yesterday because she couldn't remember how she got to the hospital or why. She indicates she is aware that she was doing bizarre things but doesn't understand why. She thinks that she may have been slipped something by the neighbor. Specifically that to she most recently bought her marijuana from and she thinks something might of been in it. Her drug screen was positive for marijuana and benzodiazepines. The patient indicates that she slept last night she indicates appetite is stable. She is complying with medications. Mental status exam: The patient is alert she is much more cooperative today she has a disheveled appearance she is dressed in her own clothing. Eye contact is appropriate she remains appropriately seated in the chair during our conversation. She has fluent and spontaneous speech that is nonpressured. She is easily directed in the interview. She reports her mood is good affect is constricted. She is reporting no suicidal or homicidal ideation intent or plan. She is reporting no auditory or visual hallucinations. She is reporting no specific delusions. There may be symptoms of psychosis that she is underreporting however. Thought process is much more linear compared to yesterday. She demonstrates no verbal or physical aggressiveness. There was no yelling. Insight and judgment much improved compared to yesterday. Plan: The patient will continue on her current psychotropic medication. We will continue to evaluate her for safety and for symptoms of psychosis. She is endorsing no recent traumatic events to explain the acute exacerbation of psychosis. This may be a reaction to using marijuana from a different supplier. It is unclear if the benzodiazepines were given in the ER or if she had used that prior to coming into the hospital. Vital signs reviewed. She is encouraged to attend all groups.
[2019-07-13] MEDS: NICOTINE 14MG/24HR PATCH TRANSDERM SCH (09:15)
[2019-07-13] MEDS: LITHIUM CARBONATE 300 MG CAP PO SCH ×2 (09:16→21:34)
[2019-07-13] MEDS: PROPRANOLOL LA 60 MG CAP.SA.24H PO SCH (09:16)
[2019-07-13] MEDS: TRIHEXYPHENIDYL 2 MG TAB PO SCH ×2 (09:16→21:34)
[2019-07-13] MEDS: MULTIVITAMINS, THERA 1 EACH TAB PO SCH (09:16)
[2019-07-13] MEDS: OXYBUTYNIN XL 5 MG TAB.ER.24 PO SCH (09:16)
[2019-07-13] MEDS: ATORVASTATIN 10 MG TAB PO SCH (09:16)
[2019-07-13] MEDS: FENOFIBRATE 160 MG TAB PO SCH (09:16)
[2019-07-13 10:55] LABS: Magnesium 2.2 mg/dL (1.6-2.3); Potassium 4.6 mmol/L (3.5-5.1)
[2019-07-13] MEDS: MAG HYDROX/AL HYDROX/SIMETH 30 ML CUP PO PRN (23:12)
[2019-07-14] MEDS: LEVOTHYROXINE 75 MCG TAB PO SCH (06:10)
[2019-07-14] MEDS: NICOTINE 14MG/24HR PATCH TRANSDERM SCH (09:13)
[2019-07-14] MEDS: ATORVASTATIN 10 MG TAB PO SCH (09:13)
[2019-07-14] MEDS: TRIHEXYPHENIDYL 2 MG TAB PO SCH ×2 (09:13→21:40)
[2019-07-14] MEDS: FENOFIBRATE 160 MG TAB PO SCH (09:14)
[2019-07-14] MEDS: LITHIUM CARBONATE 300 MG CAP PO SCH ×2 (09:14→21:39)
[2019-07-14] MEDS: MULTIVITAMINS, THERA 1 EACH TAB PO SCH (09:14)
[2019-07-14] MEDS: PROPRANOLOL LA 60 MG CAP.SA.24H PO SCH (09:15)
[2019-07-14] MEDS: OXYBUTYNIN XL 5 MG TAB.ER.24 PO SCH (09:15)
--- NOTE | 2019-07-14 11:25 | P.PN ---
Progress Note - Text Interval history: The patient is found in her room she follows me to an interview room. She indicates that she is doing well. She states that she was up for breakfast this morning and attended some of the morning groups and then took a nap. She has no questions or concerns regarding her medication. She is looking forward to a visit from her daughter over the weekend. Social work has been unable to reach her daughter so far. Staff report no behavioral disturbances or any agitated behavior. Mental status exam: The patient is alert she is dressed in her own clothing hygiene grooming adequate. She has her hair braided. Eye contact is appropriate speech is fluent spontaneous nonpressured. She reports no suicidal or homicidal ideation intent or plan. She is reporting no auditory or visual hallucinations or any specific delusions. There is no observed evidence of psychosis. She demonstrates no tangential thinking loose associations or flight of ideas. She does not appear hypomanic or manic. Insight and judgment improving. He continues to state she does not recall the events precipitating this admission. She demonstrates no verbal or physical aggressiveness she demonstrates no involuntary repetitive movements. Plan: The patient will continue on her current psychotropic medication. We will monitor her for safety. She is encouraged to continue participating in the milieu. We expect that family will visit over the weekend we will look forward to getting their input regarding the patient's status. If the patient demonstrates sufficient clinical stability/progress we will consider a discharge Wednesday.
[2019-07-15] MEDS: LEVOTHYROXINE 75 MCG TAB PO SCH (06:39)
[2019-07-15] MEDS: NICOTINE 14MG/24HR PATCH TRANSDERM SCH (08:55)
[2019-07-15] MEDS: PROPRANOLOL LA 60 MG CAP.SA.24H PO SCH (08:55)
[2019-07-15] MEDS: OXYBUTYNIN XL 5 MG TAB.ER.24 PO SCH (08:55)
[2019-07-15] MEDS: FENOFIBRATE 160 MG TAB PO SCH (08:56)
[2019-07-15] MEDS: TRIHEXYPHENIDYL 2 MG TAB PO SCH ×2 (08:56→20:53)
[2019-07-15] MEDS: MULTIVITAMINS, THERA 1 EACH TAB PO SCH (08:56)
[2019-07-15] MEDS: LITHIUM CARBONATE 300 MG CAP PO SCH ×2 (08:57→20:53)
[2019-07-15] MEDS: ATORVASTATIN 10 MG TAB PO SCH (08:57)
--- NOTE | 2019-07-15 10:34 | P.PN ---
Progress Note - Text Progress Note Date: 07/15/19 Interval history: Patient was seen for psychiatric follow-up by advertising copy writer. Patient claims that she is doing "just fine" and appears to have an expansive affect today. Patient was tangential/circumstantial however appear to be directable and happy. She stated that she is thankful for receiving treatment in the hospital. Patient spoke about an ongoing cough for weeks however patient was not noted to be coughing during the interview. She claims that she is attempting to participate in groups and taking her medications and claims that they're helping her. She claimed to have slept well last night. At this time patient denies any suicidal or homicidal ideations intent or plan. Denies any A uditory or visual hallucinations. Patient denies any side effects from the medications and has been compliant with meds. Mental status exam: General Appearance: Patient appears to be older than stated age is alert, appears to have an expansive affect. Fair hygiene and fair Grooming. Behavior: No agitated behavior. Patient is directable Speech: Patient's speech is fluent and nonpressured. Mood/Affect: Mood is improving, affect is congruent and constricted. Suicidality/Homicidality: Patient denies having any suicidal or homicidal ideation intent or plan. Perceptions: Patient denies any auditory or visual hallucinations. Though content/process: Patient's thought processes tangential/circumstantial. No preoccupations or delusions. Memory and concentration: AOX3, grossly intact for the purposes of this session Judgment and insight: improving mildly Assessment/Plan: Continue with current diagnosis. Patient continues to meet criteria for inpatient psychiatric admission for symptom stabilization and safety.Patient will be maintained on current psychotropic medication regimen. Monitor for medication compliance and for any psychotropic medication side effects. Will continue to monitor ongoing response to treatment.
[2019-07-15] MEDS: MAG HYDROX/AL HYDROX/SIMETH 30 ML CUP PO PRN (21:19)
[2019-07-16] MEDS: LEVOTHYROXINE 75 MCG TAB PO SCH (06:30)
[2019-07-16] MEDS: TRIHEXYPHENIDYL 2 MG TAB PO SCH ×2 (08:20→21:40)
[2019-07-16] MEDS: ATORVASTATIN 10 MG TAB PO SCH (08:20)
[2019-07-16] MEDS: OXYBUTYNIN XL 5 MG TAB.ER.24 PO SCH (08:20)
[2019-07-16] MEDS: LITHIUM CARBONATE 300 MG CAP PO SCH ×2 (08:20→21:40)
[2019-07-16] MEDS: MULTIVITAMINS, THERA 1 EACH TAB PO SCH (08:20)
[2019-07-16] MEDS: NICOTINE 14MG/24HR PATCH TRANSDERM SCH (08:20)
[2019-07-16] MEDS: PROPRANOLOL LA 60 MG CAP.SA.24H PO SCH (08:20)
[2019-07-16] MEDS: FENOFIBRATE 160 MG TAB PO SCH (08:20)
--- NOTE | 2019-07-16 09:50 | P.PN ---
Progress Note - Text Progress Note Date: 07/16/19 Interval history: Patient was seen for psychiatric follow-up today. Patient was directable and calm during the interview and claimed that she is doing well today. Patient was last circumstantial/tangential today mold more goal oriented. Patient stated that she is taking all her medications and claiming that it is helping her think clear. She claims that she is attempting to participate in groups. She claimed to have slept well last night. At this time patient denies any suicidal or homicidal ideations intent or plan. Denies any Auditory or visual hallucinations. Patient denies any side effects from the medications and has been compliant with meds. Mental status exam: General Appearance: Patient appears to be older than stated age is alert, appears to have an expansive affect. Fair hygiene and fair Grooming. Behavior: No agitated behavior. Patient is directable Speech: Patient's speech is fluent and nonpressured. Mood/Affect: Mood is improving, affect is congruent and constricted. Suicidality/Homicidality: Patient denies having any suicidal or homicidal ideation intent or plan. Perceptions: Patient denies any auditory or visual hallucinations. Though content/process: Patient's thought processes is less tangential/circumstantial. No preoccupations or delusions. Memory and concentration: AOX3, grossly intact for the purposes of this session Judgment and insight: improving mildly Assessment/Plan: Continue with current diagnosis. Patient continues to meet cri teria for inpatient psychiatric admission for symptom stabilization and safety.Patient will be maintained on current psychotropic medication regimen. Monitor for medication compliance and for any psychotropic medication side effects. Will continue to monitor ongoing response to treatment.
[2019-07-17 05:02] VITALS: BP 123/75; PULSE 65; RESP 16; TEMP 98.1
[2019-07-17] MEDS: LEVOTHYROXINE 75 MCG TAB PO SCH (06:27)
[2019-07-17] MEDS: NICOTINE 14MG/24HR PATCH TRANSDERM SCH (09:31)
[2019-07-17] MEDS: FENOFIBRATE 160 MG TAB PO SCH (09:32)
[2019-07-17] MEDS: ATORVASTATIN 10 MG TAB PO SCH (09:32)
[2019-07-17] MEDS: TRIHEXYPHENIDYL 2 MG TAB PO SCH (09:33)
[2019-07-17] MEDS: MULTIVITAMINS, THERA 1 EACH TAB PO SCH (09:33)
[2019-07-17] MEDS: LITHIUM CARBONATE 300 MG CAP PO SCH (09:33)
[2019-07-17] MEDS: OXYBUTYNIN XL 5 MG TAB.ER.24 PO SCH (09:33)
[2019-07-17] MEDS: PROPRANOLOL LA 60 MG CAP.SA.24H PO SCH (09:33)
[2019-07-17] MEDS ORDERED: fluPHENAZine DECANOATE 25 MG/ML 5ML MDV IM ONE (11:19)
--- NOTE | 2019-07-17 11:30 | P.DS ---
Providers Date of admission: 07/11/19 19:14 Expected date of discharge: 07/17/19 Attending physician: Lance De Paz Consults: 07/11/19 20:01 Consult Physician Routine Consulting Provider: Мария Tran Consult Reason/Comments: H&P and medical Do you want consulting provider notified?: Yes Primary care physician: Stated None - Discharge Diagnosis(es) (1) Schizoaffective disorder, bipolar type Current Visit: Yes Status: Acute Hospital Course: Brief summary of admission note: This patient is a 58-year-old female who was admitted to the mental health unit through the emergency room for confusion and suspected psychosis. The patient was agitated she was yelling. She had called her outpatient psychiatrist's office numerous times the police were called and the patient was brought to the hospital for evaluation. Upon presentation the patient was verbally agitated during our interview she kept yelling she didn't know why she was here in [place] she wanted to go home. The initial interview needed to be terminated due to the level of her agitation. For full details please refer to my psychiatric evaluation dated 07/12/2019. Summary of hospital course: The patient was admitted to the mental health unit and she was allowed to sign in voluntarily. She was agitated during our initial session. I did augment her existing Prolixin decanoate with 5 mg of Prolixin at bedtime. Her lithium level upon presentation was 0.6. We continued the lithium 300 mg in morning 600 mg in the evening. The patient was seen by internal medicine for routine history and physical exam. Social work met with the patient to complete a psychosocial assessment and to begin discharge planning. The patient's agitation and psychosis cleared very quickly and she was doing better the following day. She has continued to improve over this brief hospitalization and has stabilized. The patient does have a support meeting scheduled at 1:00 this afternoon with her daughter. We believe that the patient's agitation and psychosis may have been triggered by her recent use of marijuana and she indicates that she did obtain that from a different source than usual. She was encouraged to abstain from use of marijuana. Mental status exam: The patient is a short statured female she is dressed in her own clothing. Hygiene grooming adequate. She is pleasant and cooperative. Eye contact is appropriate speech is fluent spontaneous nonpressured. She reports no auditory or visual hallucinations or any specific delusions. There is no observed evidence of psychosis. She is demonstrating no tangential thinking loose associations or flight of ideas. She does not appear hypomanic or manic. She demonstrates no verbal or physical aggressiveness. She demonstrates no involuntary repetitive movements. Affect is euthymic and congruent to reported mood. She is oriented to person place and date. She demonstrates future oriented thinking. She reports no suicidal ideation intent or plan she reports no homicidal ideation intent or plan. Impressions 1. Schizoaffective disorder bipolar type, rule out bipolar 1 disorder most recent manic with psychosis Plan: The patient will be discharged today following the support meeting involving her daughter facilitated by [employer] work. The patient will be continued on her lithium ER 300 mg in the morning 600 mg at bedtime, Artane 5 mg twice a day, she will receive a Prolixin decanoate injection of 25 mg today. Her next injection will be due in 2 weeks. She will continue the Prolixin 5 mg at bedtime at least temporarily. She is advised to discuss the oral Prolixin with her psychiatrist as it may no longer be needed in the near future. At this time there is no imminent safety risk she is appropriate for continued care as an outpatient. She does not feel that she needs inpatient chemical dependency treatment for her marijuana use. She is instructed to return to the hospital with any acute safety concerns. Patient Condition at Discharge: Stable Plan - Discharge Summary Discharge Rx Participant: No New Discharge Prescriptions: New Nicotine 14Mg/24Hr Patch [Habitrol] 1 patch TRANSDERM DAILY #14 patch fluPHENAZine [Prolixin] 5 mg PO HS #30 tab Trihexyphenidyl HCl 5 mg PO AC-BID #60 tablet Continue Levothyroxine Sodium [Synthroid] 150 mcg PO DAILY Atorvastatin [Lipitor] 10 mg PO DAILY Fenofibrate [Lofibra] 160 mg PO DAILY Multivitamins, Thera [Multivitamin (formulary)] 1 tab PO DAILY Oxybutynin Xl [Ditropan XL] 5 mg PO DAILY Propranolol HCl [Propranolol HCl ER] 60 mg PO DAILY [place] Carbonate [Lithobid] 600 mg PO HS #60 tab [place] Carbonate [Lithobid] 300 mg PO QAM #30 tab fluPHENAZine DECANOATE [Prolixin Decanoate] 25 mg IM Q14D #1 ml Discontinued LORazepam [Ativan] 0.5 - 1 mg PO DAILY PRN PRN Reason: Anxiety Trihexyphenidyl HCl [Artane] 5 mg PO BID Discharge Medication List Atorvastatin [Lipitor] 10 mg PO DAILY 11/05/14 [History] Levothyroxine Sodium [Synthroid] 150 mcg PO DAILY 11/05/14 [History] Fenofibrate [Lofibra] 160 mg PO DAILY 07/11/19 [History] Multivitamins, Thera [Multivitamin (formulary)] 1 tab PO DAILY 07/11/19 [History] Oxybutynin Xl [Ditropan XL] 5 mg PO DAILY 07/11/19 [History] Propranolol HCl [Propranolol HCl ER] 60 mg PO DAILY 07/11/19 [History] [place] Carbonate [Lithobid] 300 mg PO QAM #30 tab 07/17/19 [Rx] [place] Carbonate [Lithobid] 600 mg PO HS #60 tab 07/17/19 [Rx] Nicotine 14Mg/24Hr Patch [Habitrol] 1 patch TRANSDERM DAILY #14 patch 07/17/19 [Rx] Trihexyphenidyl HCl 5 mg PO AC-BID #60 tablet 07/17/19 [Rx] fluPHENAZine DECANOATE [Prolixin Decanoate] 25 mg IM Q14D #1 ml 07/17/19 [Rx] fluPHENAZine [Prolixin] 5 mg PO HS #30 tab 07/17/19 [Rx] Follow up Appointment(s)/Referral(s): [facility] [Outside] - 07/20/19 9:00 am (Appointment is at the [employer] [facility] with Marcel Gonzales. ) Stu Deluca DO [REFERRING] - 08/14/19 2:00 pm None,Stated [Primary Care Provider] - 1-2 days
[2019-07-19] MEDS ORDERED: fluPHENAZine DECANOATE 25 MG/ML 5ML MDV IM SCH (09:00)
== END 2019-07-17 13:17 | disposition home or self-care (01) | DRG 885 ==
LOC: EC 13:33 → 3MHU 19:14
PROVIDERS: ADMIT Psychiatry & Neurology Psychiatry; ATTEND Psychiatry & Neurology Psychiatry
DX: F25.0 Schizoaffective disorder, bipolar type (principal); E03.9 Hypothyroidism, unspecified; E78.5 Hyperlipidemia, unspecified; F17.200 Nicotine dependence, unspecified, uncomplicated; I10 Essential (primary) hypertension; Z79.890 Hormone replacement therapy; F31.30 Bipolar disorder, current episode depressed, mild or moderate severity, unspecified
CPT/HCPCS: 36415; 70450; 71046; 80048; 80053; 80061; 80178; 80306; 80320; 80329; 81003; 82075; 82140; 82550; 83036; 83520; 83735; 84443; 85025; 85610; 85730; 93005; 99285

== ENCOUNTER 2020-09-12 06:31 | Observation (INO) | payer MEDICARE, OTHER ==
[2020-09-12] MEDS ORDERED: SODIUM CHLORIDE 0.9% 1,000 ML IV ONE (06:45)
--- NOTE | 2020-09-12 06:54 | ED ---
Altered Mental Status HPI - General Chief Complaint: Altered Mental Status Stated Complaint: Altered Mental Status Time Seen by Provider: 09/12/20 06:35 Source: patient, EMS, RN notes reviewed Mode of arrival: EMS Limitations: altered mental status - History of Present Illness Initial Comments: This a 60-year-old female presents emergency Department from home via EMS for altered behavior. Patient does have a long history of psychiatric disorder with known bipolar disorder on lithium. Patient is not very cooperative and information is very limited. She does state that she wants to home that she does not want to be here. Patient lives at home with her mother who called EMS. Patient has no physical complaints upon asking including chest pain, shortness breath, abdominal pain. Patient does have a history of snorting medications and caffeine from gas stations. Patient denies tinnitus or homicidal. - Related Data Home Medications Medication Instructions Recorded Confirmed Atorvastatin [Lipitor] 10 mg PO DAILY 11/05/14 07/11/19 Levothyroxine Sodium [Synthroid] 150 mcg PO DAILY 11/05/14 07/11/19 Fenofibrate [Lofibra] 160 mg PO DAILY 07/11/19 07/11/19 Multivitamins, Thera [Multivitamin 1 tab PO DAILY 07/11/19 07/11/19 (formulary)] Oxybutynin Xl [Ditropan XL] 5 mg PO DAILY 07/11/19 07/11/19 Propranolol HCl [Propranolol HCl 60 mg PO DAILY 07/11/19 07/11/19 ER] Previous Rx's Medication Instructions Recorded [place] Carbonate [Lithobid] 300 mg PO QAM #30 tab 07/17/19 [place] Carbonate [Lithobid] 600 mg PO HS #60 tab 07/17/19 Nicotine 14Mg/24Hr Patch [Habitrol] 1 patch TRANSDERM DAILY #14 patch 07/17/19 Trihexyphenidyl HCl 5 mg PO AC-BID #60 tablet 07/17/19 fluPHENAZine [Prolixin] 5 mg PO HS #30 tab 07/17/19 fluPHENAZine decanoate [Prolixin 25 mg IM Q14D #1 ml 07/17/19 Decanoate] Allergies Allergy/AdvReac Type Severity Reaction Status Date / Time No Known Allergies Allergy Verified 07/15/19 21:51 Review of Systems ROS Statement: Those systems with pertinent positive or pertinent negative responses have been documented in the HPI. ROS Other: All systems not noted in ROS Statement are negative. Past Medical History Past Medical History: Hyperlipidemia, Thyroid Disorder History of Any Multi-Drug Resistant Organisms: None Reported Past Surgical History: Section, Cholecystectomy, Tubal Ligation Additional Past Surgical History / Comment(s): Left breast- Pt state that she had a lump removed 2011 Past Anesthesia/Blood Transfusion Reactions: No Reported Reaction Past Psychological History: Depression Smoking Status: Unknown if ever smoked Past Alcohol Use History: None Reported Past Drug Use History: None Reported - Past Family History Father Family Medical History: No Reported History Sister(s) Family Medical History: No Reported History Mother Family Medical History: Cancer General Exam Limitations: altered mental status General appearance: alert, in no apparent distress Head exam: Present: atraumatic, normocephalic, normal inspection Eye exam: Present: normal appearance, PERRL, EOMI. Absent: scleral icterus, conjunctival injection, periorbital swelling ENT exam: Present: mucous membranes moist, TM's normal bilaterally. Absent: normal oropharynx (No dentition) Neck exam: Present: normal inspection, full ROM. Absent: tenderness, meningismus, lymphadenopathy Respiratory exam: Present: normal lung sounds bilaterally. Absent: respiratory distress, wheezes, rales, rhonchi, stridor Cardiovascular Exam: Present: regular rate, normal rhythm, normal heart sounds. Absent: systolic murmur, diastolic murmur, rubs, gallop, clicks GI/Abdominal exam: Present: soft, normal bowel sounds. Absent: distended, tenderness, guarding, rebound, rigid Neurological exam: Present: alert, altered, CN II-XII intact. Absent: oriented X3 Skin exam: Present: warm, dry, intact, normal color. Absent: rash Course Vital Signs 09/12/20 09/12/20 06:43 08:36 Temperature 98.1 F Pulse Rate 60 64 Respiratory 18 18 Rate Blood Pressure 110/50 125/77 O2 Sat by Pulse 99 97 Oximetry Medical Decision Making - Medical Decision Making 60-year-old female presented for episode of altered mental status, decreased alertness. Patient does have benzodiazepines in her drug screen though she is on Ativan. Patient does have a history significant disorder, drug abuse. Patient symptoms are improving. Though she is significantly lethargic, still sifuentes s bouts of confusion. CT of brain is unremarkable. Case discussed with Dr. isidro recommended CT of the brain, Covid test, with consults to psych and neuro - Lab Data Result diagrams: 09/12/20 06:48 09/12/20 06:48 Lab Results 09/12/20 09/12/20 09/12/20 Range/Units 06:48 06:48 06:48 WBC 8.6 (3.8-10.6) k/uL RBC 4.68 (3.80-5.40) m/uL Hgb 14.8 (11.4-16.0) gm/dL Hct 44.5 (34.0-46.0) % MCV 95.1 (80.0-100.0) fL MCH 31.7 (25.0-35.0) pg MCHC 33.3 (31.0-37.0) g/dL RDW 13.3 (11.5-15.5) % Plt Count 208 (150-450) k/uL MPV 8.2 Neutrophils % 68 % Lymphocytes % 21 % Monocytes % 6 % Eosinophils % 2 % Basophils % 1 % Neutrophils # 5.9 (1.3-7.7) k/uL Lymphocytes # 1.8 (1.0-4.8) k/uL Monocytes # 0.5 (0-1.0) k/uL Eosinophils # 0.2 (0-0.7) k/uL Basophils # 0.1 (0-0.2) k/uL PT 9.7 (9.0-12.0) sec INR 0.9 (<1.2) APTT 22.9 (22.0-30.0) sec Sodium 139 (137-145) mmol/L Potassium 3.9 (3.5-5.1) mmol/L Chloride 107 (98-107) mmol/L Carbon Dioxide 27 (22-30) mmol/L Anion Gap 5 mmol/L BUN 12 (7-17) mg/dL Creatinine 1.30 H (0.52-1.04) mg/dL Est GFR (CKD-EPI)AfAm 52 (>60 ml/min/1.73 sqM) Est GFR (CKD-EPI)NonAf 45 (>60 ml/min/1.73 sqM) Glucose 88 (74-99) mg/dL Calcium 10.4 H (8.4-10.2) mg/dL Total Bilirubin 0.4 (0.2-1.3) mg/dL AST 32 (14-36) U/L ALT 37 H (4-34) U/L Alkaline Phosphatase 52 (38-126) U/L Ammonia (<30) umol/L Troponin I (0.000-0.034) ng/mL Total Protein 7.0 (6.3-8.2) g/dL Albumin 4.3 (3.5-5.0) g/dL Urine Color Urine Appearance (Clear) Urine pH (5.0-8.0) Ur Specific [place] (1.001-1.035) Urine Protein (Negative) Urine Glucose (UA) (Negative) Urine Ketones (Negative) Urine Blood (Negative) Urine Nitrite (Negative) Urine Bilirubin (Negative) Urine Urobilinogen (<2.0) mg/dL Ur Leukocyte Esterase (Negative) Urine Opiates Screen (NotDetected) Ur Oxycodone Screen (NotDetected) Urine Methadone Screen (NotDetected) Ur Propoxyphene Screen (NotDetected) Ur Barbiturates Screen (NotDetected) U Tricyclic Antidepress (NotDetected) Ur Phencyclidine Scrn (NotDetected) Ur Amphetamines Screen (NotDetected) U Methamphetamines Scrn (NotDetected) U Benzodiazepines Scrn (NotDetected) [place] 1.5 mmol/L Urine Cocaine Screen (NotDetected) U Marijuana (THC) Screen (NotDetected) Serum Alcohol <10 mg/dL 09/12/20 09/12/20 09/12/20 Range/Units 06:48 06:55 07:34 WBC (3.8-10.6) k/uL RBC (3.80-5.40) m/uL Hgb (11.4-16.0) gm/dL Hct (34.0-46.0) % MCV (80.0-100.0) fL MCH (25.0-35.0) pg MCHC (31.0-37.0) g/dL RDW (11.5-15.5) % Plt Count (150-450) k/uL MPV Neutrophils % % Lymphocytes % % Monocytes % % Eosinophils % % Basophils % % Neutrophils # (1.3-7.7) k/uL Lymphocytes # (1.0-4.8) k/uL Monocytes # (0-1.0) k/uL Eosinophils # (0-0.7) k/uL Basophils # (0-0.2) k/uL PT (9.0-12.0) sec INR (<1.2) APTT (22.0-30.0) sec Sodium (137-145) mmol/L Potassium (3.5-5.1) mmol/L Chloride (98-107) mmol/L Carbon Dioxide (22-30) mmol/L Anion Gap mmol/L BUN (7-17) mg/dL Creatinine (0.52-1.04) mg/dL Est GFR (CKD-EPI)AfAm (>60 ml/min/1.73 sqM) Est GFR (CKD-EPI)NonAf (>60 ml/min/1.73 sqM) Glucose (74-99) mg/dL Calcium (8.4-10.2) mg/dL Total Bilirubin (0.2-1.3) mg/dL AST (14-36) U/L ALT (4-34) U/L Alkaline Phosphatase (38-126) U/L Ammonia 12 (<30) umol/L Troponin I <0.012 (0.000-0.034) ng/mL Total Protein (6.3-8.2) g/dL Albumin (3.5-5.0) g/dL Urine Color Light Yellow Urine Appearance Clear (Clear) Urine pH 6.5 (5.0-8.0) Ur Specific [place] 1.004 (1.001-1.035) Urine Protein Negative (Negative) Urine Glucose (UA) Negative (Negative) Urine Ketones Negative (Negative) Urine Blood Negative (Negative) Urine Nitrite Negative (Negative) Urine Bilirubin Negative (Negative) Urine Urobilinogen <2.0 (<2.0) mg/dL Ur Leukocyte Esterase Negative (Negative) Urine Opiates Screen Not Detected (NotDetected) Ur Oxycodone Screen Not Detected (NotDetected) Urine Methadone Screen Not Detected (NotDetected) Ur Propoxyphene Screen Not Detected (NotDetected) Ur Barbiturates Screen Not Detected (NotDetected) U Tricyclic Antidepress Not Detected (NotDetected) Ur Phencyclidine Scrn Not Detected (NotDetected) Ur Amphetamines Screen Not Detected (NotDetected) U Methamphetamines Scrn Not Detected (NotDetected) U Benzodiazepines Scrn Detected H (NotDetected) [place] mmol/L Urine Cocaine Screen Not Detected (NotDetected) U Marijuana (THC) Screen Not Detected (NotDetected) Serum Alcohol mg/dL Disposition Clinical Impression: Altered mental status, Lethargy, Bipolar disorder, Drug abuse Disposition: ADMITTED IP TO THIS [facility] Condition: Fair Referrals: Devyn Worrell MD [Primary Care Provider] - 1-2 days
[2020-09-12 07:03] LABS: Basophils # (A) 0.1 k/uL (0-0.2); Basophils % (A) 1 %; Eosinophils # (A) 0.2 k/uL (0-0.7); Eosinophils % (A) 2 %; HCT 44.5 % (34.0-46.0); HGB 14.8 gm/dL (11.4-16.0); Lymphocytes # (A) 1.8 k/uL (1.0-4.8); Lymphocytes % (A) 21 %; MCH 31.7 pg (25.0-35.0); MCHC 33.3 g/dL (31.0-37.0); MCV 95.1 fL (80.0-100.0); Mean Platelet Volume 8.2; Monocytes # (A) 0.5 k/uL (0-1.0); Monocytes % (A) 6 %; Neutrophils # (A) 5.9 k/uL (1.3-7.7); Neutrophils % (A) 68 %; Platelet Count 208 k/uL (150-450); RBC 4.68 m/uL (3.80-5.40); RDW 13.3 % (11.5-15.5); WBC 8.6 k/uL (3.8-10.6)
[2020-09-12 07:13] LABS: INR 0.9 (<1.2); Partial Thromboplastin Time 22.9 sec (22.0-30.0); Prothrombin Time 9.7 sec (9.0-12.0)
[2020-09-12 07:16] LABS: ALT 37 U/L (4-34); AST 32 U/L (14-36); African American GFR (CKD) 52 (>60 ml/min/1.73 sqM); Albumin 4.3 g/dL (3.5-5.0); Alcohol <10 mg/dL; Alkaline Phosphatase 52 U/L (38-126); Anion Gap 5 mmol/L; Blood Urea Nitrogen 12 mg/dL (7-17); Calcium 10.4 mg/dL (8.4-10.2); Carbon Dioxide 27 mmol/L (22-30); Chloride 107 mmol/L (98-107); Glucose 88 mg/dL (74-99); Lithium 1.5 mmol/L; Non-African American GFR(CKD) 45 (>60 ml/min/1.73 sqM); Potassium 3.9 mmol/L (3.5-5.1); Sodium 139 mmol/L (137-145); Total Bilirubin 0.4 mg/dL (0.2-1.3)
--- NOTE | 2020-09-12 07:41 | CT ---
EXAMINATION TYPE: CT brain wo con DATE OF EXAM: 09/12/2020 HISTORY: AMS CT DLP: 1213.4 mGycm. Automated Exposure Control for Dose Reduction was Utilized. TECHNIQUE: CT scan of the head is performed without contrast. COMPARISON: CT brain July 01, 2019. FINDINGS: There is no acute intracranial hemorrhage or midline shift identified. There is mild to m inimal diffuse ventricular and sulcal prominence consistent with diffuse age-related cerebral atrophy . Lara-white matter differentiation is maintained. The globes are intact and the visualized sinuses are clear. IMPRESSION: No acute intracranial hemorrhage or midline shift. No significant change from prior.
[2020-09-12 07:51] LABS: Appearance,Urine Clear (Clear); Bilirubin,Urine Negative (Negative); Blood,Urine Negative (Negative); Color,Urine Light Yellow; Glucose,Urine (UA) Negative (Negative); Ketones,Urine Negative (Negative); Leukocyte Esterase,Urine Negative (Negative); Nitrite,Urine Negative (Negative); PH, Urine 6.5 (5.0-8.0); Protein,Urine Negative (Negative); Specific Gravity,Urine 1.004 (1.001-1.035); Urobilinogen,Urine <2.0 mg/dL (<2.0)
[2020-09-12 08:29] LABS: Amphetamine Screen,Urine Not Detected (NotDetected); Barbiturate Screen,Urine Not Detected (NotDetected); Benzodiazepines Screen,Urine Detected (NotDetected); Cocaine Screen,Urine Not Detected (NotDetected); Methadone Screen, Urine Not Detected (NotDetected); Opiate Screen,Urine Not Detected (NotDetected); Oxycodone Screen, Urine Not Detected (NotDetected); Phencyclidine Screen,Urine Not Detected (NotDetected); Tricyclic Antidepressant,Urine Not Detected (NotDetected); Urn Cannabinoid Scrn Not Detected (NotDetected)
--- NOTE | 2020-09-12 08:37 | XR ---
EXAMINATION TYPE: XR chest 1V DATE OF EXAM: 09/12/2020 COMPARISON: CXR from 07/11/2019. HISTORY: AMS and weakness. TECHNIQUE: Single AP portable upright view of the chest is obtained. FINDINGS: There is somewhat low lung volumes without suspicious new focal air space opacity, pleural effusion, or pneumothorax seen. The cardiac silhouette size is stable and mildly enlarged. The os seous structures are intact. IMPRESSION: No acute process. No significant change from prior.
[2020-09-12 08:51] LABS: Glucose,Whole Blood 86 mg/dL (75-99)
[2020-09-12] MEDS ORDERED: ONDANSETRON 4 MG/2 ML VIAL IVP PRN (08:54)
[2020-09-12] MEDS ORDERED: NALOXONE 0.4 MG/ML 1 ML VIAL IV PRN (08:54)
[2020-09-12] MEDS ORDERED: ACETAMINOPHEN TAB 325 MG TAB PO PRN (08:54)
[2020-09-12] MEDS: SODIUM CHLORIDE 0.9% 1,000 ML IV SCH ×2 (10:05→23:03)
[2020-09-12] MEDS: PIPERACILLIN-TAZOBACTAM 3.375 GM in SODIUM CHLORIDE 0.9% 100 ML IVPB SCH ×2 (10:36→15:01)
--- NOTE | 2020-09-12 10:37 | CT ---
EXAMINATION TYPE: CT angio COW [place] DATE OF EXAM: 09/12/2020 HISTORY: Patient poor historian COMPARISON: None CT DLP: 999.5 mGycm. Automated Exposure Control for Dose Reduction was Utilized. TECHNIQUE: CTA scan of the [place] is performed with IV Contrast, patient injected with 70 mL of Isovue 370, axial images are obtained, coronal and sagittal reformatted images are reviewed. Th ree-D reconstructed images are created on an independent workstation and reviewed. Source images are reviewed. FINDINGS: Cervical of [place]: Vertebral basilar system appears normal. Posterior cerebral vasculature is unrema rkable. Internal carotid arteries bifurcate normally into A1 and M1 segments. A2 segments are normal. The anterior communicating artery is patent. Left posterior communicating arteries are not identifie d. IMPRESSION: 1. Normal [place]
[2020-09-12 14:06] LABS: Glucose,Whole Blood 87 mg/dL (75-99)
[2020-09-12] MEDS ORDERED: IPRATROPIUM-ALBUTEROL 3 ML NEB INHALATION PRN (15:40)
--- NOTE | 2020-09-12 15:44 | P.HPIM ---
History of Present Illness H&P Date: 09/12/20 HISTORY OF PRESENT ILLNESS The is a 60-year-old female patient of Dr. Devyn Worrell with past medical history significant for hyperlipidemia, hypothyroidism, bipolar disorder. Patient currently lives with her mother and daughter. They had related that patient snores caffeine pills and also smoked marijuana this morning. Patient was noted by family to be confused and EMS was called and patient was brought into the hospital. Patient is confused and denies any complaints. She has a sitter at the bedside and has been pulling her IV and trying to get off of the stretcher. Patient was afebrile, heart rate 60, blood pressure 110/50, pulse ox 99% on room air. CBC unremarkable. Electrolytes normal, BUN 12 and creatinine 1.3. Blood sugar 88. Drug screen was positive for benzodiazepines and patient is on Ativan at home. Liver function tests normal except for ALT of 37. [place] level I.5 was normal. Serum alcohol level less than 10. Troponin negative. Ammonia level XII. Urinalysis negative for infection. CAT scan of the brain showed no acute intracranial abnormality. Chest x-ray showed no acute cardiopulmonary finding. CAT scan of [place] was normal. [facility] and consult requested with neurology and psychiatry. REVIEW OF SYSTEMS Unable to obtain due to patient's mental status SOCIAL HISTORY Patient is an active smoker, known marijuana use. Patient also snores caffeine pills. Patient lives at home with her mother and daughter FAMILY HISTORY Unable to obtain family history from the patient due to mental status. PHYSICAL EXAMINATION Gen: This is a 60-year-old female. She is resting on the ER [facility] . She appears to be in no acute distress no respiratory distress noted. Patient is confused HEENT: Head is atraumatic, normocephalic. Pupils equal, round. Sclerae is anicteric. NECK: Supple. No JVD. No lymphadenopathy. No thyromegaly. LUNGS: Clear to auscultation. No wheezes or rhonchi. No intercostal retractions. HEART: Regular rate and rhythm. No murmur. ABDOMEN: Soft. Bowel sounds are present. No masses. No tenderness. EXTREMITIES: No pedal edema. No calf tenderness. NEUROLOGICAL: Patient is awake, alert and oriented x3. Cranial nerves 2 through 12 are grossly intact. ASSESSMENT AND PLAN 1. Acute metabolic encephalopathy of unclear etiology. Hold trihexyphenidyl, Ativan, Ditropan. Consult psychiatry and neurology. maintainability engineer at the bedside. 2. Possible aspiration pneumonia. Patient started on Zosyn 3.375 g IV piggyback every 8 hours, DuoNeb treatments 3 times daily and as needed. 3. Hyperlipidemia. Continue atorvastatin 10 mg daily and fenofibrate 160 mg daily. 4. Hypothyroidism. Continue levothyroxine 125 g daily. Check TSH and free T4. 5. History of bipolar disorder. Consult psychiatry. Continue lithium 300 mg in the morning and 600 mg the evening. 6. Overactive bladder. Hold oxybutynin. 7. Hypertension. Continue propranolol 60 mg daily. 8. Generalized anxiety disorder. Hold Ativan. 9. GI prophylaxis. Protonix 40 mg oral daily. 10. DVT prophylaxis. Lovenox 40 mg subcu daily. Patient will be admitted to the hospital for a minimum of 2 night stay. DISCHARGE PLAN To be determined Impression and plan of care have been directed as dictated by the signing physician. Rosey Biswas nurse practitioner acting as scribe for signing physician. Past Medical History Past Medical History: Hyperlipidemia, Thyroid Disorder History of Any Multi-Drug Resistant Organisms: None Reported Past Surgical History: Section, Cholecystectomy, Tubal Ligation Additional Past Surgical History / Comment(s): Left breast- Pt state that she had a lump removed 2011 Past Anesthesia/Blood Transfusion Reactions: No Reported Reaction Past Psychological History: Depression Smoking Status: Unknown if ever smoked Past Alcohol Use History: None Reported Past Drug Use History: None Reported - Past Family History Father Family Medical History: No Reported History Sister(s) Family Medical History: No Reported History Mother Family Medical History: Cancer Medications and Allergies Home Medications Medication Instructions Recorded Confirmed Type Atorvastatin [Lipitor] 10 mg PO DAILY 11/05/14 09/12/20 History Fenofibrate [Lofibra] 160 mg PO DAILY 07/11/19 09/12/20 History Multivitamins, Thera [Multivitamin 1 tab PO DAILY 07/11/19 09/12/20 History (formulary)] Oxybutynin Xl [Ditropan XL] 5 mg PO DAILY 07/11/19 09/12/20 History Propranolol HCl [Propranolol HCl 60 mg PO DAILY 07/11/19 09/12/20 History ER] [place] Carbonate [Lithobid] 300 mg PO QAM #30 tab 07/17/19 09/12/20 Rx [place] Carbonate [Lithobid] 600 mg PO HS #60 tab 07/17/19 09/12/20 Rx Trihexyphenidyl HCl 5 mg PO AC-BID #60 tablet 07/17/19 09/12/20 Rx fluPHENAZine decanoate [Prolixin 25 mg IM Q14D #1 ml 07/17/19 09/12/20 Rx Decanoate] LORazepam [Ativan] 0.5 - 1 mg PO DAILY PRN 09/12/20 09/12/20 History Levothyroxine Sodium [Synthroid] 125 mcg PO DAILY 09/12/20 09/12/20 History Allergies Allergy/AdvReac Type Severity Reaction Status Date / Time No Known Allergies Allergy Verified 07/15/19 21:51 Physical Exam Vitals: Vital Signs Temp Pulse Resp BP Pulse Ox 09/12/20 09:06 60 18 118/90 92 L 09/12/20 08:36 64 18 125/77 97 09/12/20 06:43 98.1 F 60 18 110/50 99 Intake and Output 09/11/20 09/12/20 09/12/20 22:59 06:59 14:59 Other: Weight 77.111 kg Results CBC & Chem 7: 09/12/20 06:48 09/12/20 06:48 Labs: Abnormal Lab Results - Last 24 Hours (Table) 09/12/20 09/12/20 Range/Units 06:48 07:34 Creatinine 1.30 H (0.52-1.04) mg/dL Calcium 10.4 H (8.4-10.2) mg/dL ALT 37 H (4-34) U/L U Benzodiazepines Scrn Detected H (NotDetected)
--- NOTE | 2020-09-12 17:06 | CONS ---
CONSULTATION DATE OF SERVICE: 09/12/2020 PURPOSE FOR CONSULTATION: Evaluate for confusion. HISTORY OF PRESENTING ILLNESS: The patient was not able to provide any information regarding history or current circumstances. All information came from the medical record. The patient was admitted to the ED. Patient was at home, she was confused. EMS was called and she was brought to the hospital. The patient lives with her mother and daughter. Apparently, the patient snorts caffeine pills and also smoked marijuana on the morning prior to her admission. The patient was diagnosed with acute metabolic encephalopathy, the record indicates that the patient has a history of bipolar disorder and takes lithium carbonate 300 mg in the morning, 600 mg in the evening, Prolixin Decanoate 25 mg IM q.14 days, Artane 5 mg twice a day and Ativan 0.5 mg to 1 mg daily p.r.n. [place] level on admission was 1.5. It is noted that the patient had a psychiatric admission to this facility 07/12/2019. She presented with confusion and suspected psychosis. She was agitated. She was diagnosed with psychosis and rule out bipolar disorder. [facility] had [facility] and was on the same psychotropic medications that she is on currently. At that time, her lithium level in the ED was 0.6. Urine drug screen was positive for benzodiazepine, which she has at home prescription. MENTAL STATUS EXAM: The patient was lying in bed, mostly she was sedated, though awake. She barely could open her eyes. She would respond to few questions with one-word responses. For the most part, she said very little. Her affect was flat. She had some restlessness, it was difficult to assess mood or thought process. On cognitive exam, she was able to say she was at [facility], that it was August 2020 and that she thought it was Wednesday. I asked her what the date in August it was. I asked in several different ways and repeated the question a number of times. She did not make an effort to answer the question and did not respond to any other questions. For the most part she was quite lethargic. ASSESSMENT: This 60-year-old female is diagnosed with lithium toxicity as quite possibly a primary diagnosis for her current situation. She could very likely have had a lithium level above 2, though in some patients, particularly at her age, a lithium level of 1.5, can induce symptoms of lithium toxicity. Any level above 2.0 would be considered severe toxicity, which could lead to confusion and delirium. I will discontinue lithium. At this point, she has not had any significant behavioral issues that would warrant p.r.n. medications. I would avoid any use of benzodiazepine and if the patient were to develop agitation, I would consider Zyprexa IM 5 mg which could be repeated in a 0.5 hour, an alternative would be Haldol 5 mg IM repeated in a 0.5 hour. I will continue to follow. MMODL / IJN: [id number] /
[2020-09-12] MEDS ORDERED: LITHIUM CARBONATE 300 MG PO SCH (21:00)
[2020-09-12] MEDS: IPRATROPIUM-ALBUTEROL 3 ML NEB INHALATION SCH (21:32)
[2020-09-13] MEDS: PIPERACILLIN-TAZOBACTAM 3.375 GM in SODIUM CHLORIDE 0.9% 100 ML IVPB SCH ×3 (00:41→15:40)
[2020-09-13] MEDS: LEVOTHYROXINE 125 MCG TAB PO SCH (05:46)
[2020-09-13] MEDS: FENOFIBRATE 160 MG TAB PO SCH (07:34)
[2020-09-13] MEDS: MULTIVITAMINS, THERA 1 EACH TAB PO SCH (07:34)
[2020-09-13] MEDS: ATORVASTATIN 10 MG TAB PO SCH (07:35)
[2020-09-13] MEDS: PANTOPRAZOLE 40 MG TABLET PO SCH (07:35)
[2020-09-13] MEDS: PROPRANOLOL LA 60 MG CAP.SA.24H PO SCH (07:35)
[2020-09-13] MEDS: ENOXAPARIN 40 MG/0.4 ML SYRINGE SQ SCH (07:35)
[2020-09-13] MEDS: IPRATROPIUM-ALBUTEROL 3 ML NEB INHALATION SCH ×3 (08:28→19:47)
[2020-09-13] MEDS ORDERED: [UNRECOGNIZED DRUG - OTHER] PO SCH (09:00)
--- NOTE | 2020-09-13 10:17 | P.CNNES ---
History of Present Illness Consult date: 09/13/20 Requesting physician: Vijay Gonzalez Reason for Consult: Altered mental status History of Present Illness: Patient is a 60-year-old female came to the hospital yesterday entry level paralegal at 6:43 AM by ambulance for altered behavior. Patient does have long-standing history of psychiatric disorder with known bipolar disorder, currently on lithium. Patient was not cooperative. Patient lives at home with her mother who called EMS. Patient had no physical complaints. She had decreased alertness reported. Patient was lethargic was having bouts of confusion. It was reported that patient snorts caffeine pills and also smokes marijuana. Patient states she has been feeling confusion for last couple weeks. Denies any focal symptoms. The sitter who was present today, states that patient did see a white mouse running in the hallway. Patient believes that it was imagination, not real. Patient was also telling the aid that the windows over open, which actually were not. Vital signs on arrival blood pressure 110/50, pulse rate 60 and temperature 98.1. Computed tomography scan of head showed no acute intracranial hemorrhage or midline shift. No significant change from prior. Chest x-ray showed no acute process. EKG shows sinus rhythm with first-degree AV block. CTA of head was normal. Patient's blood test shows normal CBC, PT/PTT, Chem-20 with ALT mildly elevated 37. Ammonia is normal 12. Troponin negative. Calcium is mildly elevated 10.4/10.2. TSH is highly elevated to 73 with free T4 <0.10. UA negative. [place] level is 1.5. Urine drug screen positive for benzo. [place] virus negative. Blood alcohol level negative. She tells me that she has not been taking her thyroid medication for last 2 weeks. Patient is on lithium 300 mg the morning 600 mg in the evening. Also on Prolixin decanoate 25 mg IM every 14 days, Artane 5 mg twice a day, Ativan 0.5 mg to 1 mg daily when necessary. Review of Systems Complains of dry mouth, denies double vision, loss of vision. Denies hoarseness, sore throat, dysphagia. Denies chest pain, shortness of breath, wheezing or cough. Denies abdominal pain, nausea vomiting. Patient has been having some hallucinations. Patient has some psych history. All other 14 point of review of systems unremarkable. Past Medical History Past Medical History: Hyperlipidemia, Hypertension, Thyroid Disorder Additional Past Medical History / Comment(s): Overactive bladder, constipation, hypothyroid History of Any Multi-Drug Resistant Organisms: None Reported Past Surgical History: Breast Surgery, Section, Cholecystectomy, Tubal Ligation Additional Past Surgical History / Comment(s): L breast benign lumpectomy Past Anesthesia/Blood Transfusion Reactions: No Reported Reaction Smoking Status: Current every day smoker - Past Family History Father Family Medical History: No Reported History Additional Family Medical History / Comment(s): Father was healthy Sister(s) Family Medical History: No Reported History Mother Family Medical History: Cancer Additional Family Medical History / Comment(s): Mother had breast cancer. Medications and Allergies Home Medications Medication Instructions Recorded Confirmed Type Atorvastatin [Lipitor] 10 mg PO DAILY 11/05/14 09/12/20 History Fenofibrate [Lofibra] 160 mg PO DAILY 07/11/19 09/12/20 History Multivitamins, Thera [Multivitamin 1 tab PO DAILY 07/11/19 09/12/20 History (formulary)] Oxybutynin Xl [Ditropan XL] 5 mg PO DAILY 07/11/19 09/12/20 History Propranolol HCl [Propranolol HCl 60 mg PO DAILY 07/11/19 09/12/20 History ER] [place] Carbonate [Lithobid] 300 mg PO QAM #30 tab 07/17/19 09/12/20 Rx [place] Carbonate [Lithobid] 600 mg PO HS #60 tab 07/17/19 09/12/20 Rx Trihexyphenidyl HCl 5 mg PO AC-BID #60 tablet 07/17/19 09/12/20 Rx fluPHENAZine decanoate [Prolixin 25 mg IM Q14D #1 ml 07/17/19 09/12/20 Rx Decanoate] LORazepam [Ativan] 0.5 - 1 mg PO DAILY PRN 09/12/20 09/12/20 History Levothyroxine Sodium [Synthroid] 125 mcg PO DAILY 09/12/20 09/12/20 History Allergies Allergy/AdvReac Type Severity Reaction Status Date / Time No Known Allergies Allergy Verified 07/15/19 21:51 Physical Examination - Vital Signs Vital Signs: Vital Signs Temp Pulse Pulse Resp BP BP Pulse Ox 09/13/20 08:00 18 09/13/20 07:17 98.4 F 61 18 124/83 95 09/13/20 00:47 97.5 F L 66 18 120/78 92 L 09/12/20 20:05 98.7 F 62 18 112/76 93 L 09/12/20 19:00 17 09/12/20 14:50 99 F 61 16 118/78 94 L 09/12/20 14:23 75 22 132/88 94 L 09/12/20 11:00 58 L 25 H 117/85 09/12/20 10:44 60 20 117/85 97 Intake and Output 09/12/20 09/13/20 09/13/20 22:59 06:59 14:59 Intake Total 700 Balance 700 Intake: IV 700 Piperacillin-Tazobactam 3 100 .375 gm In Sodium Chloride 0.9% 100 ml @ 25 mls/hr IVPB Q8HR [facility] Rx# :[id number] Sodium Chloride 0.9% 1, 600 000 ml @ 75 mls/hr IV . [id number] [facility] Rx#:[id number] Other: Voiding Method Bedside Commode Bedside Commode Weight 77.111 kg On examination patient is a late middle aged female, in no distress. Patient is alert and awake. Patient knows the year is although could not tell the current month. She knows that she is in [facility] in [facility]. Patient knows name of the current president. Speech and language functions are normal. Attention and concentration is intact but fund of knowledge is limited. Palmomental reflex was absent. On cranial nerve examination pupils are round and reactive to light, visual [place] are full on c onfrontation, extraocular muscles are intact with no nystagmus. Face is symmetric, tongue protrudes to the midline. Palatal elevation and sensation normal, hearing and shoulder shrug normal. Facial sensation normal. On muscle strength testing there is no pronator drift and the strength is normal in arms and legs distally and proximally. Reflexes are 1+ and plantars downgoing. Sensory touch is equal. No ataxia for [id number] testing, tone and bulk of muscles normal. Gait deferred. There is no carotid bruit or murmur, peripheral pulses present, abdomen soft nontender, chest is clear, peripheral pulses present. Results - Laboratory Findings CBC and BMP: 09/12/20 06:48 09/12/20 06:48 Abnormal Lab Findings: Abnormal Labs 09/12/20 09/12/20 09/12/20 06:48 06:48 06:48 Creatinine 1.30 H Calcium 10.4 H ALT 37 H TSH 273.160 H Free T4 <0.10 L U Benzodiazepines Scrn 09/12/20 07:34 Creatinine Calcium ALT TSH Free T4 U Benzodiazepines Scrn Detected H Assessment and Plan Assessment: * Altered mental status, likely due to multiple reasons as below including: * [place] toxicity * Severe hypothyroidism * Hypercalcemia * History of psychiatric disorder. Plan: * Treatment of psychiatric condition as per psychiatrist. * Patient's lithium has been discontinued by the psychiatrist because of lithium toxicity. * Patient states she has stopped taking her thyroid medication in the last 2 weeks. Patient is to resume her thyroid medication and be compliant. * No other neurological workup indicated. * We will check B12, folate, RPR. * Patient is clear from neurology standpoint. We'll sign off.
[2020-09-13] MEDS: SODIUM CHLORIDE 0.9% 1,000 ML IV SCH (11:34)
--- NOTE | 2020-09-13 12:49 | P.PN ---
Subjective The is a 60-year-old female patient of Dr. Devyn Worrell with past medical history significant for hyperlipidemia, hypothyroidism, bipolar disorder. Patient currently lives with her mother and daughter. They had related that patient snores caffeine pills and also smoked marijuana this morning. Patient was noted by family to be confused and EMS was called and patient was brought into the hospital. Patient is confused and denies any complaints. She has a sitter at the bedside and has been pulling her IV and trying to get off of the stretcher. Patient was afebrile, heart rate 60, blood pressure 110/50, pulse ox 99% on room air. CBC unremarkable. Electrolytes normal, BUN 12 and creatinine 1.3. Blood sugar 88. Drug screen was positive for benzodiazepines and patient is on Ativan at home. Liver function tests normal except for ALT of 37. [place] level I.5 was normal. Serum alcohol level less than 10. Troponin negative. Ammonia level XII. Urinalysis negative for infection. CAT scan of the brain showed no acute intracranial abnormality. Chest x-ray showed no acute cardiopulmonary finding. CAT scan of [place] was normal. Patient medically to the [facility] floor and consult requested with neurology and psychiatry. 09/13: Patient is more alert and awake today. Answering questions appropriately. Patient reports she smoked medical marijuana yesterday, causing her to become confused, although there was no marijuana found on the drug screen. Psychiatry consult appreciated fells altered mental status likely due to lithium toxicity. [place] was discontinued, her medications were adjusted. TSH 273, T3 4 < 0.10, patient is on levothyroxine 125 g daily, questioning if patient is taking her levothyroxine at home. Sitter remains at the bedside. Objective - Vital Signs Vital signs: Vital Signs Temp 98.4 F 09/13/20 07:17 Pulse 61 09/13/20 07:17 Resp 18 09/13/20 08:00 BP 124/83 09/13/20 07:17 Pulse Ox 95 09/13/20 07:17 Intake & Output 09/12/20 09/13/20 09/13/20 18:59 06:59 18:59 Intake Total 700 Balance 700 Weight 77.111 kg Intake: IV 700 Piperacillin-Tazobactam 3 100 .375 gm In Sodium Chloride 0.9% 100 ml @ 25 mls/hr IVPB Q8HR [facility] Rx# :[id number] Sodium Chloride 0.9% 1, 600 000 ml @ 75 mls/hr IV . [id number] [facility] Rx#:[id number] Other: Voiding Method Bedside Commode Bedside Commode - Exam Gen: This is a 60-year-old female. She appears to be in no acute distress no respiratory distress noted. HEENT: Head is atraumatic, normocephalic. Pupils equal, round. Sclerae is anicteric. NECK: Supple. No JVD. No lymphadenopathy. No thyromegaly. LUNGS: Clear to auscultation. No wheezes or rhonchi. No intercostal retractions. HEART: Regular rate and rhythm. No murmur. ABDOMEN: Soft. Bowel sounds are present. No masses. No tenderness. EXTREMITIES: No pedal edema. No calf tenderness. NEUROLOGICAL: Patient is awake, alert and oriented x3. Cranial nerves 2 through 12 are grossly intact - Labs CBC & Chem 7: 09/12/20 06:48 09/12/20 06:48 Labs: Abnormal Lab Results - Last 24 Hours (Table) 09/12/20 09/12/20 Range/Units 06:48 06:48 TSH 273.160 H (0.350-5.500) uIU/mL Free T4 <0.10 L (0.80-1.80) ng/dL Assessment and Plan Plan: 1. Acute metabolic encephalopathy of unclear etiology. Hold trihexyphenidyl, Ativan, Ditropan. Consult psychiatry and neurology. cryptologist at the bedside. 2. Possible aspiration pneumonia. Patient started on Zosyn 3.375 g IV piggyback every 8 hours, DuoNeb treatments 3 times daily and as needed. 3. Hyperlipidemia. Continue atorvastatin 10 mg daily and fenofibrate 160 mg daily. 4. Hypothyroidism. Continue levothyroxine 125 g daily. 5. History of bipolar disorder. Consult psychiatry. Continue lithium 300 mg in the morning and 600 mg the evening. 6. Overactive bladder. Hold oxybutynin. 7. Hypertension. Continue propranolol 60 mg daily. 8. Generalized anxiety disorder. Hold Ativan. 9. GI prophylaxis. Protonix 40 mg oral daily. 10. DVT prophylaxis. Lovenox 40 mg subcu daily. The above impression and plan of care have been discussed and directed by signing physician. Theresa Klein nurse practitioner acting as scribe for signing physician.
[2020-09-13] MEDS: NICOTINE 21MG/24HR PATCH TRANSDERM SCH (14:18)
--- NOTE | 2020-09-13 14:23 | CONS ---
CONSULTATION DATE OF SERVICE: 09/13/2020 PURPOSE FOR CONSULTATION: Evaluate for confusion. INTERVAL HISTORY: The patient has been doing fair. She had a quiet day yesterday from a psychiatric standpoint. Staff noted that she has been progressively getting a little more alert and more responsive. She slept fairly well last night, today she was able to respond to questions generally appropriately. Patient did indicate that she had smoked medical marijuana prior to coming into the hospital. It is noted; however, that her urine drug screen was negative for any marijuana metabolite. Today when I talked to her she was up, she was somewhat irritable. She answered some questions appropriately. When I asked some cognitive questions, she did not make much effort to respond. I asked her the date. She did say "the ." After that, she did not make any effort to answer any more questions regarding orientation. I had a telephone contact with the patient's daughter Ilana. The daughter notes that the patient has been struggling with the family about taking medications for at least the last 2 months. She was unclear as to what circumstances may have led to her having an excessive amount of lithium. He was aware that the patient was likely not taking Synthroid and suggested that probably was the case for the last 2 months. ASSESSMENT: I would continue the diagnosis of lithium toxicity. The patient should remain off lithium. I will order a followup lithium level. In addition, the patient has significant hypothyroidism with her admission TSH of 273. 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 At this point, I will repeat a TSH, free T4 and repeat and draw a free T3 as well. Her creatinine is elevated at 1.3. It is uncertain whether she has any chronic kidney problems. Her creatinine could be elevated simply on the basis of lithium toxicity. I had would recommend she has followup for her kidneys with Dr. Worrell. I would continue her off lithium until we see if her kidney function normalizes. If not, then she would need to continue off lithium as even in the therapeutic range it can cause toxicity. I discussed treatment plan with the daughter, which includes the patient remaining off lithium until she sees Dr. Worrell for review kidney function and also to see Dr. Deluca for a psychiatric followup. It maybe a month or more before her thyroid levels come back to normal. Her daughter seemed to understand the seriousness of these issues. I strongly encouraged the daughter to have the patient stay off benzodiazepines as well as any marijuana products. I will continue to follow. TREV / FEROZN: [id number] / SHELLEY
[2020-09-13 15:11] LABS: T4, Free (Free Thyroxine) 0.11 ng/dL (0.78-2.19)
[2020-09-13 21:00] LABS: Lithium 0.9 mmol/L (0.5-1.2)
[2020-09-14] MEDS: PIPERACILLIN-TAZOBACTAM 3.375 GM in SODIUM CHLORIDE 0.9% 100 ML IVPB SCH ×2 (00:52→07:15)
[2020-09-14 03:01] VITALS: TEMP 97.8
[2020-09-14] MEDS: SODIUM CHLORIDE 0.9% 1,000 ML IV SCH (05:52)
[2020-09-14] MEDS: LEVOTHYROXINE 125 MCG TAB PO SCH (05:52)
[2020-09-14] MEDS: PANTOPRAZOLE 40 MG TABLET PO SCH (07:15)
[2020-09-14] MEDS: NICOTINE 21MG/24HR PATCH TRANSDERM SCH (07:15)
[2020-09-14] MEDS: PROPRANOLOL LA 60 MG CAP.SA.24H PO SCH (07:15)
[2020-09-14] MEDS: MULTIVITAMINS, THERA 1 EACH TAB PO SCH (07:15)
[2020-09-14] MEDS: FENOFIBRATE 160 MG TAB PO SCH (07:15)
[2020-09-14] MEDS: ATORVASTATIN 10 MG TAB PO SCH (07:15)
[2020-09-14] MEDS: ENOXAPARIN 40 MG/0.4 ML SYRINGE SQ SCH (07:16)
[2020-09-14 07:50] VITALS: BP 122/85
[2020-09-14] MEDS: IPRATROPIUM-ALBUTEROL 3 ML NEB INHALATION SCH ×2 (09:06→12:30)
[2020-09-14 12:32] VITALS: PULSE 50; RESP 16
--- NOTE | 2020-09-14 13:34 | P.DS ---
Providers Date of admission: 09/12/20 09:09 Attending physician: Stu Hollis Consults: 09/12/20 08:54 Consult Physician Urgent Consulting Provider: Cornelio Kruse Consult Reason/Comments: bipolar disorder Do you want consulting provider notified?: Yes Consult Physician Urgent Consulting Provider: Janeen Terrell Consult Reason/Comments: Altered mental status Do you want consulting provider notified?: Yes Primary care physician[facility] Course: Subjective The is a 60-year-old female patient of Dr. Devyn Worrell with past medical history significant for hyperlipidemia, hypothyroidism, bipolar disorder. Patient currently lives with her mother and daughter. They had related that patient snores caffeine pills and also smoked marijuana this morning. Patient was noted by family to be confused and EMS was called and patient was brought into the hospital. Patient is confused and denies any complaints. She has a sitter at the bedside and has been pulling her IV and trying to get off of the stretcher. Patient was afebrile, heart rate 60, blood pressure 110/50, pulse ox 99% on room air. CBC unremarkable. Electrolytes normal, BUN 12 and creatinine 1.3. Blood sugar 88. Drug screen was positive for benzodiazepines and patient is on Ativan at home. Liver function tests normal except for ALT of 37. [place] level I.5 was normal. Serum alcohol level less than 10. Troponin negative. Ammonia level XII. Urinalysis negative for infection. CAT scan of the brain showed no acute intracranial abnormality. Chest x-ray showed no acute cardiopulmonary finding. CAT scan of [place] was normal. Patient medically to [facility] floor and consult requested with neurology and psychiatry. 09/13: Patient is more alert and awake today. Answering questions appropriately. Patient reports she smoked medical marijuana yesterday, causing her to become confused, although there was no marijuana found on the drug screen. Psychiatry consult appreciated fells altered mental status likely due to lithium toxicity. [place] was discontinued, her medications were adjusted. TSH 273, T3 4 < 0.10, patient is on levothyroxine 125 g daily, questioning if patient is taking her levothyroxine at home. Sitter remains at the bedside. Objective - Vital Signs Vital signs: Vital Signs Temp 98.4 F 09/13/20 07:17 Pulse 61 09/13/20 07:17 Resp 18 09/13/20 08:00 BP 124/83 09/13/20 07:17 Pulse Ox 95 09/13/20 07:17 Intake & Output 09/12/20 09/13/20 09/13/20 18:59 06:59 18:59 Intake Total 700 Balance 700 Weight 77.111 kg Intake: IV 700 Piperacillin-Tazobactam 3 100 .375 gm In Sodium Chloride 0.9% 100 ml @ 25 mls/hr IVPB Q8HR [facility] Rx# :[id number] Sodium Chloride 0.9% 1, 600 000 ml @ 75 mls/hr IV . [id number] [facility] Rx#:[id number] Other: Voiding Method Bedside Commode Bedside Commode - Exam Gen: This is a 60-year-old female. She appears to be in no acute distress no respiratory distress noted. HEENT: Head is atraumatic, normocephalic. Pupils equal, round. Sclerae is anicteric. NECK: Supple. No JVD. No lymphadenopathy. No thyromegaly. LUNGS: Clear to auscultation. No wheezes or rhonchi. No intercostal retractions. HEART: Regular rate and rhythm. No murmur. ABDOMEN: Soft. Bowel sounds are present. No masses. No tenderness. EXTREMITIES: No pedal edema. No calf tenderness. NEUROLOGICAL: Patient is awake, alert and oriented x3. Cranial nerves 2 through 12 are grossly intact - Labs CBC & Chem 7: 09/12/20 06:48 09/12/20 06:48 Labs: Abnormal Lab Results - Last 24 Hours (Table) 09/12/20 09/12/20 Range/Units 06:48 06:48 TSH 273.160 H (0.350-5.500) uIU/mL Free T4 <0.10 L (0.80-1.80) ng/dL Assessment and Plan Plan: 1. Acute metabolic encephalopathy of unclear etiology. Hold trihexyphenidyl, Ativan, Ditropan. Consult psychiatry and neurology. door repairman at the bedside. 2. Possible aspiration pneumonia. Patient started on Zosyn 3.375 g IV piggyback every 8 hours, DuoNeb treatments 3 times daily and as needed. 3. Hyperlipidemia. Continue atorvastatin 10 mg daily and fenofibrate 160 mg daily. 4. Hypothyroidism. Continue levothyroxine 125 g daily. 5. History of bipolar disorder. Consult psychiatry. Continue lithium 300 mg in the morning and 600 mg the evening. 6. Overactive bladder. Hold oxybutynin. 7. Hypertension. Continue propranolol 60 mg daily. 8. Generalized anxiety disorder. Hold Ativan. 9. GI prophylaxis. Protonix 40 mg oral daily. 10. DVT prophylaxis. Lovenox 40 mg subcu daily. Hospital course: A she was seen and evaluated by neurology and psychiatry with adjustment of her medication patient was more clear mentally she is doing much better with her thyroid has been depleted patient has not been taking medication for a while was started back on her medication doing well. Still on nicotine patch, still using incentive spirometry patient still have slight shortness of breath with doing much better continue management for aspiration pneumonia. Switching her IV antibiotic to oral Augmentin continue on inhaler talk with the daughter who originally do want her mom to come home after explained to her the finding and follow-up was agreeable to come take her mom home and to watch her medication suspension regular basis and promised to see psych and primary care within the next few days. Patient Condition at Discharge: Fair Plan - Discharge Summary Discharge Rx Participant: No New Discharge Prescriptions: New Amoxic-Pot Clav 500-125 mg [Augmentin 500-125 mg] 1 tab PO Q12HR #14 tab Nicotine 21Mg/24Hr Patch [Habitrol] 1 patch TRANSDERM DAILY #30 patch Pantoprazole [Protonix] 40 mg PO AC-BRKFST #30 tablet. Levothyroxine Sodium [Synthroid] 125 mcg PO 0630 #60 tab Acetaminophen Tab [Tylenol] 650 mg PO Q6HR PRN tab PRN Reason: Mild Pain Or Fever > 100.5 Albuterol Sulfate [Ventolin HFA] 2 puff INHALATION Q6H PRN #1 inhaler PRN Reason: Shortness Of Breath Continue Atorvastatin [Lipitor] 10 mg PO DAILY Fenofibrate [Lofibra] 160 mg PO DAILY Multivitamins, Thera [Multivitamin (formulary)] 1 tab PO DAILY Oxybutynin Xl [Ditropan XL] 5 mg PO DAILY Propranolol HCl [Propranolol HCl ER] 60 mg PO DAILY Trihexyphenidyl HCl 5 mg PO AC-BID #60 tablet [place] Carbonate [Lithobid] 600 mg PO HS #60 tab [place] Carbonate [Lithobid] 300 mg PO QAM #30 tab fluPHENAZine decanoate [Prolixin Decanoate] 25 mg IM Q14D #1 ml LORazepam [Ativan] 0.5 - 1 mg PO DAILY PRN PRN Reason: Anxiety Levothyroxine Sodium [Synthroid] 125 mcg PO DAILY Discharge Medication List Atorvastatin [Lipitor] 10 mg PO DAILY 11/05/14 [History] Fenofibrate [Lofibra] 160 mg PO DAILY 07/11/19 [History] Multivitamins, Thera [Multivitamin (formulary)] 1 tab PO DAILY 07/11/19 [History] Oxybutynin Xl [Ditropan XL] 5 mg PO DAILY 07/11/19 [History] Propranolol HCl [Propranolol HCl ER] 60 mg PO DAILY 07/11/19 [History] [place] Carbonate [Lithobid] 300 mg PO QAM #30 tab 07/17/19 [Rx] [place] Carbonate [Lithobid] 600 mg PO HS #60 tab 07/17/19 [Rx] Trihexyphenidyl HCl 5 mg PO AC-BID #60 tablet 07/17/19 [Rx] fluPHENAZine decanoate [Prolixin Decanoate] 25 mg IM Q14D #1 ml 07/17/19 [Rx] LORazepam [Ativan] 0.5 - 1 mg PO DAILY PRN 09/12/20 [History] Levothyroxine Sodium [Synthroid] 125 mcg PO DAILY 09/12/20 [History] Acetaminophen Tab [Tylenol] 650 mg PO Q6HR PRN tab 09/14/20 [Rx] Albuterol Sulfate [Ventolin HFA] 2 puff INHALATION Q6H PRN #1 inhaler 09/14/20 [Rx] Amoxic-Pot Clav 500-125 mg [Augmentin 500-125 mg] 1 tab PO Q12HR #14 tab 09/14/20 [Rx] Levothyroxine Sodium [Synthroid] 125 mcg PO 0630 #60 tab 09/14/20 [Rx] Nicotine 21Mg/24Hr Patch [Habitrol] 1 patch TRANSDERM DAILY #30 patch 09/14/20 [Rx] Pantoprazole [Protonix] 40 mg PO AC-BRKFST #30 tablet. 09/14/20 [Rx] Follow up Appointment(s)/Referral(s): Stu Deluca DO [REFERRING] - 1 Week Devyn Worrell MD [Primary Care Provider] - 1-2 days Discharge Disposition: HOME SELF-CARE
== END 2020-09-14 14:35 | disposition home or self-care (01) ==
LOC: EC 06:31 → 4SSUR 09:09
PROVIDERS: ADMIT Internal Medicine Geriatric Medicine; ATTEND Internal Medicine Geriatric Medicine
DX: G93.41 Metabolic encephalopathy (principal); F31.9 Bipolar disorder, unspecified; R06.02 Shortness of breath; E78.5 Hyperlipidemia, unspecified; E03.9 Hypothyroidism, unspecified; N32.81 Overactive bladder; I10 Essential (primary) hypertension; F41.1 Generalized anxiety disorder; K59.00 Constipation, unspecified; E83.52 Hypercalcemia; T43.595A Adverse effect of other antipsychotics and neuroleptics, initial encounter; F17.200 Nicotine dependence, unspecified, uncomplicated; Z79.899 Other long term (current) drug therapy; Z79.890 Hormone replacement therapy; Z90.49 Acquired absence of other specified parts of digestive tract; Z80.3 Family history of malignant neoplasm of breast; Z20.828 Contact with and (suspected) exposure to other viral communicable diseases
CPT/HCPCS: 96361 ×3; 96366 ×3; 96372 ×2; 96375; 96365; 99285; 36415; 94640; 93005; 84439 ×2; 84481; 80053; 84443 ×2; 82140; 80178 ×2; 84484; 85025; 85610; 85730; 81003; 87040; 80306; 87635; 71045; 70496; 70450; G0378 ×3; G0480; S4990 ×2; J2543 ×3; J2405; J1650 ×2; Q9967; 80320

== ENCOUNTER 2020-10-05 09:29 | Emergency (ER) | payer MEDICARE, OTHER ==
[2020-10-05 09:38] VITALS: TEMP 98.6
[2020-10-05] MEDS ORDERED: SODIUM CHLORIDE 0.9% 500 ML 500 ML IV ONE (09:58)
[2020-10-05] MEDS ORDERED: NICOTINE 21MG/24HR PATCH TRANSDERM STA (10:11)
[2020-10-05 10:26] LABS: Basophils # (A) 0.1 k/uL (0-0.2); Basophils % (A) 1 %; Eosinophils # (A) 0.2 k/uL (0-0.7); Eosinophils % (A) 2 %; HCT 48.1 % (34.0-46.0); HGB 16.2 gm/dL (11.4-16.0); Lymphocytes # (A) 1.3 k/uL (1.0-4.8); Lymphocytes % (A) 11 %; MCH 32.3 pg (25.0-35.0); MCHC 33.7 g/dL (31.0-37.0); MCV 95.8 fL (80.0-100.0); Mean Platelet Volume 8.4; Monocytes # (A) 0.5 k/uL (0-1.0); Monocytes % (A) 5 %; Neutrophils # (A) 9.2 k/uL (1.3-7.7); Neutrophils % (A) 80 %; Platelet Count 235 k/uL (150-450); RBC 5.02 m/uL (3.80-5.40); RDW 13.1 % (11.5-15.5); WBC 11.5 k/uL (3.8-10.6)
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
[2020-10-05 10:37] LABS: ALT 17 U/L (4-34); AST 23 U/L (14-36); African American GFR (CKD) 66 (>60 ml/min/1.73 sqM); Albumin 4.5 g/dL (3.5-5.0); Alcohol <10 mg/dL; Alkaline Phosphatase 61 U/L (38-126); Anion Gap 8 mmol/L; Blood Urea Nitrogen 16 mg/dL (7-17); Calcium 10.8 mg/dL (8.4-10.2); Carbon Dioxide 25 mmol/L (22-30); Chloride 107 mmol/L (98-107); Glucose 115 mg/dL (74-99); Lithium 0.9 mmol/L; Non-African American GFR(CKD) 57 (>60 ml/min/1.73 sqM); Potassium 4.4 mmol/L (3.5-5.1); Sodium 140 mmol/L (137-145); Total Bilirubin 0.6 mg/dL (0.2-1.3); Total Protein 7.5 g/dL (6.3-8.2)
[2020-10-05 10:38] LABS: Appearance,Urine Cloudy (Clear); Bacteria,Urine Few /hpf; Bilirubin,Urine Negative (Negative); Blood,Urine Negative (Negative); Color,Urine Light Yellow; Glucose,Urine (UA) Negative (Negative); Hyaline Casts,Urine 1 /lpf (0-2); Ketones,Urine Negative (Negative); Leukocyte Esterase,Urine Trace (Negative); Mucus,Urine Rare /hpf; Nitrite,Urine Negative (Negative); PH, Urine 6.5 (5.0-8.0); Protein,Urine Negative (Negative); RBC,Urine 1 /hpf (0-5); Specific Gravity,Urine 1.009 (1.001-1.035); Squamous Epithelial Cell,Urine 6 /hpf (0-4); Urobilinogen,Urine <2.0 mg/dL (<2.0); WBC,Urine 7 /hpf (0-5)
[2020-10-05 10:41] LABS: Amphetamine Screen,Urine Not Detected (NotDetected); Cocaine Screen,Urine Not Detected (NotDetected); Opiate Screen,Urine Not Detected (NotDetected); Phencyclidine Screen,Urine Not Detected (NotDetected)
[2020-10-05 10:42] LABS: Barbiturate Screen,Urine Not Detected (NotDetected); Benzodiazepines Screen,Urine Detected (NotDetected); Methadone Screen, Urine Not Detected (NotDetected); Oxycodone Screen, Urine Not Detected (NotDetected); Tricyclic Antidepressant,Urine Not Detected (NotDetected); Urn Cannabinoid Scrn Detected (NotDetected)
[2020-10-05 13:29] VITALS: BP 143/89; PULSE 99; RESP 16
== END 2020-10-05 13:00 | disposition home or self-care (01) ==
LOC: EC 09:29
DX: F31.9 Bipolar disorder, unspecified (principal); F41.9 Anxiety disorder, unspecified; E78.5 Hyperlipidemia, unspecified; I10 Essential (primary) hypertension; E03.9 Hypothyroidism, unspecified; F17.200 Nicotine dependence, unspecified, uncomplicated; Z79.890 Hormone replacement therapy; Z79.899 Other long term (current) drug therapy; Z90.49 Acquired absence of other specified parts of digestive tract
CPT/HCPCS: 82075; 36415; 84439; 80053; 84443; 80178; 85025; 81001; 80306; 99285; 96360; G0480; S4990; 80320

== ENCOUNTER → 2021-01-23 | Outpatient (CLI) | payer MEDICARE, OTHER ==
--- NOTE | 2021-01-24 09:19 | MM ---
Reason for exam: screening (asymptomatic). Last mammogram was performed 1 year and 9 months ago. History: Patient is postmenopausal. Family history of breast cancer in mother at age 60. Excisional biopsy of the left breast, October 2014. Benign US biopsy breast VAD LT of the left breast, October 18, 2014. Physical Findings: A clinical breast exam by your physician is recommended on an annual basis and results should be correlated with mammographic findings. MG 3D Screening Mammo W/Cad Bilateral CC and MLO view(s) were taken. Prior study comparison: April 20, 2019, bilateral MG 3d screening mammo w/cad. October 29, 2017, bilateral MG 3d screening mammo w/cad. There are scattered fibroglandular densities. There is no discrete abnormality. No significant changes when compared with prior studies. ASSESSMENT: Negative, BI-RAD 1 RECOMMENDATION: Routine screening mammogram of both breasts in 1 year.
== END | disposition home or self-care (01) ==
LOC: RADMAMWWP 14:23
PROVIDERS: ATTEND Family Medicine
DX: Z12.31 Encounter for screening mammogram for malignant neoplasm of breast (principal); Z78.0 Asymptomatic menopausal state; Z80.3 Family history of malignant neoplasm of breast
CPT/HCPCS: 77063; 77067

== ENCOUNTER → 2022-02-03 | Outpatient (CLI) | payer MEDICARE, OTHER ==
--- NOTE | 2022-02-05 08:43 | MM ---
Reason for exam: screening (asymptomatic). Last mammogram was performed 1 year ago. History: Patient is postmenopausal. Family history of breast cancer in mother at age 60. Excisional biopsy of the left breast, October 2014. Benign US biopsy breast VAD LT of the left breast, October 18, 2014. Physical Findings: A clinical breast exam by your physician is recommended on an annual basis and results should be correlated with mammographic findings. MG 3D Screening Mammo W/Cad Bilateral CC and MLO view(s) were taken. Prior study comparison: January 23, 2021, bilateral MG 3d screening mammo w/cad. April 20, 2019, bilateral MG 3d screening mammo w/cad. There are scattered fibroglandular densities. Benign appearing bilateral calcifications. Previous mammotome biopsy in the left breast. No significant changes when compared with prior studies. ASSESSMENT: Benign, BI-RAD 2 RECOMMENDATION: Routine screening mammogram of both breasts in 1 year.
== END | disposition home or self-care (01) ==
LOC: RADMAMWWP 07:46
PROVIDERS: ATTEND Family Medicine
DX: Z12.31 Encounter for screening mammogram for malignant neoplasm of breast (principal)
CPT/HCPCS: 77063; 77067

== ENCOUNTER 2023-03-01 11:42 | Inpatient (IN) | payer MEDICARE, OTHER ==
[2023-03-01] MEDS ORDERED: SODIUM CHLORIDE 0.9% 1,000 ML IV ONE (12:29)
[2023-03-01] MEDS ORDERED: SODIUM CHLORIDE 0.9% 1,000 ML IV STA (12:29)
--- NOTE | 2023-03-01 12:32 | ED ---
General Adult HPI - General Chief complaint: Altered Mental Status Stated complaint: Altered mental status Time Seen by Provider: 03/01/23 12:12 Source: EMS, RN notes reviewed Mode of arrival: EMS Limitations: altered mental status, physical limitation - History of Present Illness Initial comments: Patient is a 62-year-old female presenting to the emergency department concerns for change in mental status. Patient reportedly was last known well yesterday. Patient is nonresponsive and unable to provide history at this time. Patient is restless. Further history is limited. Nursing staff reports that patient was covered in dried feces. - Related Data Home Medications Medication Instructions Recorded Confirmed Atorvastatin [Lipitor] 10 mg PO DAILY 11/05/14 03/01/23 Multivitamins, Thera [Multivitamin 1 tab PO DAILY 07/11/19 03/01/23 (formulary)] Oxybutynin Xl [Ditropan XL] 5 mg PO DAILY 07/11/19 03/01/23 Propranolol HCl [Propranolol HCl 60 mg PO DAILY 07/11/19 03/01/23 ER] Levothyroxine Sodium [Synthroid] 125 mcg PO DAILY 09/12/20 03/01/23 ARIPiprazole [Abilify Maintena] 400 mg IM Q28D 03/01/23 03/01/23 ARIPiprazole [Abilify] 15 mg PO DAILY 03/01/23 03/01/23 Escitalopram [Lexapro] 10 mg PO DAILY 03/01/23 03/01/23 LORazepam [Ativan] 0.5 mg PO BID PRN 03/01/23 03/01/23 [place] Carbonate [Lithobid] 300 mg PO BID 03/01/23 03/01/23 Trihexyphenidyl HCl 5 mg PO BID 03/01/23 03/01/23 Previous Rx's Medication Instructions Recorded Pantoprazole [Protonix] 40 mg PO AC-[id number] #30 tablet. 09/14/20 Allergies Allergy/AdvReac Type Severity Reaction Status Date / Time No Known Allergies Allergy Verified 03/01/23 12:21 Review of Systems ROS Statement: Those systems with pertinent positive or pertinent negative responses have been documented in the HPI. ROS Other: All systems not noted in ROS Statement are negative. Limitations: ROS unobtainable due to patients medical condition Past Medical History Past Medical History: Hyperlipidemia, Hypertension, Thyroid Disorder Additional Past Medical History / Comment(s): Overactive bladder, constipation, hypothyroid History of Any Multi-Drug Resistant Organisms: None Reported Past Surgical History: Breast Surgery, Section, Cholecystectomy, Tubal Ligation Additional Past Surgical History / Comment(s): L breast benign lumpectomy Past Anesthesia/Blood Transfusion Reactions: No Reported Reaction Past Psychological History: Anxiety, Bipolar, Depression Smoking Status: Current every day smoker Past Alcohol Use History: None Reported Past Drug Use History: Marijuana - Past Family History Father Family Medical History: No Reported History Additional Family Medical History / Comment(s): Father was healthy Sister(s) Family Medical History: No Reported History Mother Family Medical History: Cancer Additional Family Medical History / Comment(s): Mother had breast cancer. General Exam Limitations: altered mental status, physical limitation General appearance: alert Head exam: Present: atraumatic Eye exam: Present: normal appearance, PERRL, other (Patient looks to the left. Difficult for patient to the right, limited exam) ENT exam: Present: mucous membranes dry Neck exam: Present: normal inspection. Absent: tenderness, meningismus Respiratory exam: Present: normal lung sounds bilaterally Cardiovascular Exam: Present: tachycardia GI/Abdominal exam: Present: soft. Absent: tenderness, pulsatile mass Extremities exam: Present: normal inspection Neurological exam: Present: alert, altered, other (Patient is restless). A bsent: motor sensory deficit (Limited exam. Does move all extremities) Expanded Motor strength exam: RUE: 5, LUE: 5, RLE: 5, LLE: 5 Eye Response: (4) open spontaneously Motor Response: (4) withdraws to pain Verbal Response: (1) no verbal response Psychiatric exam: Present: other (Restless) Skin exam: Present: normal color Course Vital Signs 03/01/23 11:59 Temperature 99.2 F Pulse Rate 102 H Respiratory 40 H Rate Blood Pressure 97/36 O2 Sat by Pulse 90 L Oximetry EKG Findings - EKG Results: EKG: interpreted by ERMD (Septal Q waves), sinus rhythm, normal axis, normal ST/T Medical Decision Making - Medical Decision Making Was pt. sent in by a medical professional or institution (, PA, UNIVERSITY LECTURER, urgent care, hospital, or shelter...) When possible be specific @ -No Did you speak to anyone other than the patient for history (EMS, parent, family, police, friend...)? What history was obtained from this source @ -EMS help provide history as well as nursing staff his patient is not a reliable source Did you review nursing and triage notes (agree or disagree)? Why? @ -I reviewed and agree with nursing and triage notes Were old charts reviewed (outside hosp., previous admission, EMS record, old EKG, old radiological studies, urgent care reports/EKG's, shelter records)? Report findings @ -No old charts were reviewed Differential Diagnosis (chest pain, altered mental status, abdominal pain women, abdominal pain men, vaginal bleeding, weakness, fever, dyspnea, syncope, headache, dizziness, GI bleed, back pain, seizure, CVA, palpatations, mental health)? @ -Differential Altered Mental Status: Hypoglycemia, DKA, hypercapnia, ETOH, overdose, CO poisoning, trauma, myxedema coma, HTN encephalopathy, infection, encephalitis, psychosis, intercranial hemorrhage, hepatic encephalopathy, meningitis, CVA, this is not meant to be an all-inclusive list EKG interpreted by me (3pts min.). @ -As above X-rays interpreted by me (1pt min.). @ -Chest x-ray shows right lower lobe infiltrate CT interpreted by me (1pt min.). @ -Port reviewed U/S interpreted by me (1pt. min.). @ -None done What testing was considered but not performed or refused? (CT, X-rays, U/S, labs)? Why? @ -None What meds were considered but not given or refused? Why? @ -None Did you discuss the management of the patient with other professionals (professionals i.e. , PA, UNIVERSITY LECTURER, lab, RT, psych nurse, mental health social worker, infant childcare provider, teacher, credit risk officer, housing case manager)? Give summary @ -Case discussed with Dr. Payton, who will admit covering Dr. Worrell t Was smoking cessation discussed for >3mins.? @ -No Was critical care preformed (if so, how long)? @ -32 minutes critical care time Were there social determinants of health that impacted care today? How? (Homelessness, low income, unemployed, alcoholism, drug addiction, transportation, low edu. Level, literacy, decrease access to med. care, [facility], rehab)? @ -No Was there de-escalation of care discussed even if they declined (Discuss DNR or withdrawal of care, Hospice)? DNR status @ -No What co-morbidities impacted this encounter? (DM, HTN, Smoking, COPD, CAD, Cancer, CVA, ARF, Chemo, Hep., AIDS, mental health diagnosis, sleep apnea, morbid obesity)? @ -None Was patient admitted / discharged? Hospital course, mention meds given and route, prescriptions, significant lab abnormalities, going to OR and other pertinent info. @ -There is concern for such as criteria diagnosed at 1420. Patient will receive a cultures, lactic acid and IV antibiotics. Patient reevaluated without much change, slightly less restless. Patient will continue with IV fluids. Undiagnosed new problem with uncertain prognosis? @ -No Drug Therapy requiring intensive monitoring for toxicity (Heparin, Nitro, Insulin, Cardizem)? @ -No Were any procedures done? @ -No Diagnosis/symptom? @ -Pneumonia, sepsis, altered mental status, dehydration Acute, or Chronic, or Acute on Chronic? @ -Acute, acute, acute, acute Uncomplicated (without systemic symptoms) or Complicated (systemic symptoms)? @ -Pneumonia is complicated with sepsis and altered mental status Side effects of treatment? @ -No Exacerbation, Progression, or Severe Exacerbation? @ -No Poses a threat to life or bodily function? How? (Chest pain, [place], [place], pneumonia, PE, COPD, DKA, ARF, appy, cholecystitis, CVA, Diverticulitis, Homicidal, Suicidal, threat to staff... and all critical care pts) @ -Sepsis does pose a threat to life - Lab Data Result diagrams: 03/01/23 12:36 03/01/23 12:30 Lab Results 03/01/23 03/01/23 03/01/23 Range/Units 12:30 12:36 12:36 WBC 21.4 H (3.8-10.6) k/uL RBC 4.88 (3.80-5.40) m/uL Hgb 15.2 (11.4-16.0) gm/dL Hct 46.4 H (34.0-46.0) % MCV 95.1 (80.0-100.0) fL MCH 31.1 (25.0-35.0) pg MCHC 32.7 (31.0-37.0) g/dL RDW 13.9 (11.5-15.5) % Plt Count 192 (150-450) k/uL MPV 9.4 Neutrophils % Not Reportable Neutrophils % (Manual) 74 % Band Neuts % (Manual) 13 % Lymphocytes % Not Reportable Lymphocytes % (Manual) 6 % Monocytes % Not Reportable Monocytes % (Manual) 5 % Eosinophils % Not Reportable Basophils % Not Reportable Metamyelocytes % 3 % Myelocytes % 1 % Neutrophils # Not Reportable Neutrophils # (Manual) 18.60 H (1.3-7.7) k/uL Lymphocytes # Not Reportable Lymphocytes # (Manual) 1.28 (1.0-4.8) k/uL Monocytes # Not Reportable Monocytes # (Manual) 1.07 H (0-1.0) k/uL Eosinophils # Not Reportable Basophils # Not Reportable Metamyelocytes # (Man) 0.64 H (0) k/uL Myelocytes # (Manual) 0.21 H (0) k/uL Nucleated RBCs 1 H (0-0) /100 WBC Manual Slide Review Performed RBC Morphology Normal PT 11.8 (9.0-12.0) sec INR 1.1 (<1.2) APTT 20.0 L (22.0-30.0) sec Sodium 150 H (137-145) mmol/L Potassium 3.6 (3.5-5.1) mmol/L Chloride 112 H (98-107) mmol/L Carbon Dioxide 21 L (22-30) mmol/L Anion Gap 17 mmol/L BUN 38 H (7-17) mg/dL Creatinine 2.46 H (0.52-1.04) mg/dL Est GFR (CKD-EPI)AfAm 24 (>60 ml/min/1.73 sqM) Est GFR (CKD-EPI)NonAf 20 (>60 ml/min/1.73 sqM) Glucose 107 H (74-99) mg/dL Calcium 9.2 (8.4-10.2) mg/dL Total Bilirubin 1.2 (0.2-1.3) mg/dL AST 44 H (14-36) U/L ALT 39 H (4-34) U/L Alkaline Phosphatase 52 (38-126) U/L Troponin I (0.000-0.034) ng/mL Total Protein 5.9 L (6.3-8.2) g/dL Albumin 3.3 L (3.5-5.0) g/dL Urine Color Urine Appearance (Clear) Urine pH (5.0-8.0) Ur Specific [place] (1.001-1.035) Urine Protein (Negative) Urine Glucose (UA) (Negative) Urine Ketones (Negative) Urine Blood (Negative) Urine Nitrite (Negative) Urine Bilirubin (Negative) Urine Urobilinogen (<2.0) mg/dL Ur Leukocyte Esterase (Negative) Urine WBC (0-5) /hpf Ur Squamous Epith Cells (0-4) /hpf Urine Mucus (None) /hpf Urine Opiates Screen (NotDetected) Ur Oxycodone Screen (NotDetected) Urine Methadone Screen (NotDetected) Ur Propoxyphene Screen (NotDetected) Ur Barbiturates Screen (NotDetected) U Tricyclic Antidepress (NotDetected) Ur Phencyclidine Scrn (NotDetected) Ur Amphetamines Screen (NotDetected) U Methamphetamines Scrn (NotDetected) U Benzodiazepines Scrn (NotDetected) Urine Cocaine Screen (NotDetected) U Marijuana (THC) Screen (NotDetected) 03/01/23 03/01/23 Range/Units 12:36 12:36 WBC (3.8-10.6) k/uL RBC (3.80-5.40) m/uL Hgb (11.4-16.0) gm/dL Hct (34.0-46.0) % MCV (80.0-100.0) fL MCH (25.0-35.0) pg MCHC (31.0-37.0) g/dL RDW (11.5-15.5) % Plt Count (150-450) k/uL MPV Neutrophils % Neutrophils % (Manual) % Band Neuts % (Manual) % Lymphocytes % Lymphocytes % (Manual) % Monocytes % Monocytes % (Manual) % Eosinophils % Basophils % Metamyelocytes % % Myelocytes % % Neutrophils # Neutrophils # (Manual) (1.3-7.7) k/uL Lymphocytes # Lymphocytes # (Manual) (1.0-4.8) k/uL Monocytes # Monocytes # (Manual) (0-1.0) k/uL Eosinophils # Basophils # Metamyelocytes # (Man) (0) k/uL Myelocytes # (Manual) (0) k/uL Nucleated RBCs (0-0) /100 WBC Manual Slide Review RBC Morphology PT (9.0-12.0) sec INR (<1.2) APTT (22.0-30.0) sec Sodium (137-145) mmol/L Potassium (3.5-5.1) mmol/L Chloride (98-107) mmol/L Carbon Dioxide (22-30) mmol/L Anion Gap mmol/L BUN (7-17) mg/dL Creatinine (0.52-1.04) mg/dL Est GFR (CKD-EPI)AfAm (>60 ml/min/1.73 sqM) Est GFR (CKD-EPI)NonAf (>60 ml/min/1.73 sqM) Glucose (74-99) mg/dL Calcium (8.4-10.2) mg/dL Total Bilirubin (0.2-1.3) mg/dL AST (14-36) U/L ALT (4-34) U/L Alkaline Phosphatase (38-126) U/L Troponin I 0.025 (0.000-0.034) ng/mL Total Protein (6.3-8.2) g/dL Albumin (3.5-5.0) g/dL Urine Color Yellow Urine Appearance Clear (Clear) Urine pH 5.0 (5.0-8.0) Ur Specific [place] 1.014 (1.001-1.035) Urine Protein Trace H (Negative) Urine Glucose (UA) Negative (Negative) Urine Ketones Trace H (Negative) Urine Blood Negative (Negative) Urine Nitrite Negative (Negative) Urine Bilirubin Negative (Negative) Urine Urobilinogen 2.0 (<2.0) mg/dL Ur Leukocyte Esterase Trace H (Negative) Urine WBC 4 (0-5) /hpf Ur Squamous Epith Cells 1 (0-4) /hpf Urine Mucus Rare H (None) /hpf Urine Opiates Screen Not Detected (NotDetected) Ur Oxycodone Screen Not Detected (NotDetected) Urine Methadone Screen Not Detected (NotDetected) Ur Propoxyphene Screen Not Detected (NotDetected) Ur Barbiturates Screen Not Detected (NotDetected) U Tricyclic Antidepress Not Detected (NotDetected) Ur Phencyclidine Scrn Not Detected (NotDetected) Ur Amphetamines Screen Not Detected (NotDetected) U Methamphetamines Scrn Not Detected (NotDetected) U Benzodiazepines Scrn Detected H (NotDetected) Urine Cocaine Screen Not Detected (NotDetected) U Marijuana (THC) Screen Not Detected (NotDetected) Critical Care Time Critical Care Time: Yes Total Critical Care Time: 32 Disposition Clinical Impression: Sepsis, Altered mental status, Dehydration, Pneumonia Disposition: ADMITTED IP TO THIS [facility] Condition: Serious Is patient prescribed a controlled substance at d/c from ED?: No Referrals: Devyn Worrell MD [Primary Care Provider] - 1-2 days Time of Disposition: 14:25
[2023-03-01 13:07] LABS: HCT 46.4 % (34.0-46.0); HGB 15.2 gm/dL (11.4-16.0); MCH 31.1 pg (25.0-35.0); MCHC 32.7 g/dL (31.0-37.0); MCV 95.1 fL (80.0-100.0); Mean Platelet Volume 9.4; Platelet Count 192 k/uL (150-450); RBC 4.88 m/uL (3.80-5.40); RDW 13.9 % (11.5-15.5)
[2023-03-01 13:07] LABS: AST 44 U/L (14-36); African American GFR (CKD) 24 (>60 ml/min/1.73 sqM); Albumin 3.3 g/dL (3.5-5.0); Alkaline Phosphatase 52 U/L (38-126); Anion Gap 17 mmol/L; Blood Urea Nitrogen 38 mg/dL (7-17); Calcium 9.2 mg/dL (8.4-10.2); Carbon Dioxide 21 mmol/L (22-30); Chloride 112 mmol/L (98-107); Glucose 107 mg/dL (74-99); Non-African American GFR(CKD) 20 (>60 ml/min/1.73 sqM); Potassium 3.6 mmol/L (3.5-5.1); Sodium 150 mmol/L (137-145); Total Bilirubin 1.2 mg/dL (0.2-1.3); Total Protein 5.9 g/dL (6.3-8.2)
[2023-03-01 13:17] LABS: INR 1.1 (<1.2); Prothrombin Time 11.8 sec (9.0-12.0)
[2023-03-01 13:27] LABS: Appearance,Urine Clear (Clear); Bilirubin,Urine Negative (Negative); Blood,Urine Negative (Negative); Color,Urine Yellow; Glucose,Urine (UA) Negative (Negative); Ketones,Urine Trace (Negative); Leukocyte Esterase,Urine Trace (Negative); Mucus,Urine Rare /hpf; Nitrite,Urine Negative (Negative); Protein,Urine Trace (Negative); Specific Gravity,Urine 1.014 (1.001-1.035); Squamous Epithelial Cell,Urine 1 /hpf (0-4); WBC,Urine 4 /hpf (0-5)
[2023-03-01 13:28] LABS: Amphetamine Screen,Urine Not Detected (NotDetected); Barbiturate Screen,Urine Not Detected (NotDetected); Benzodiazepines Screen,Urine Detected (NotDetected); Cocaine Screen,Urine Not Detected (NotDetected); Methadone Screen, Urine Not Detected (NotDetected); Opiate Screen,Urine Not Detected (NotDetected); Oxycodone Screen, Urine Not Detected (NotDetected); Phencyclidine Screen,Urine Not Detected (NotDetected); Tricyclic Antidepressant,Urine Not Detected (NotDetected); Urn Cannabinoid Scrn Not Detected (NotDetected)
[2023-03-01 13:29] LABS: ALT 39 U/L (4-34)
[2023-03-01 13:35] LABS: Band Neutrophils % 13 %; Lymphocytes # (M) 1.28 k/uL (1.0-4.8); Metamyelocytes # (M) 0.64 k/uL (0); Metamyelocytes % 3 %; Monocytes # (M) 1.07 k/uL (0-1.0); Myelocytes # (M) 0.21 k/uL (0); Myelocytes % 1 %; Neutrophils % (M) 74 %; Nucleated Red Blood Cells 1 /100 WBC (0-0); Total Cells Counted 200; WBC 21.4 k/uL (3.8-10.6)
[2023-03-01 13:37] LABS: RBC Morphology Normal
[2023-03-01] MEDS ORDERED: ACETAMINOPHEN IV (For NPO) 1,000 MG in EMPTY BAG 1 BAG IVPB STA (14:05)
--- NOTE | 2023-03-01 14:06 | XR ---
EXAMINATION TYPE: XR chest 1V DATE OF EXAM: 03/01/2023 1:58 PM COMPARISON: Chest radiographs from 09/12/2020 TECHNIQUE: XR chest 1V Frontal view of the chest. CLINICAL INDICATION:Female, 62 years old with history of altered mental status; FINDINGS: Lungs/Pleura: No pleural effusion or pneumothorax. Right mid and lower lung perihilar airspace consol idation. Pulmonary vascularity: Unremarkable. Heart/mediastinum: Cardiomediastinal silhouette is unremarkable. Musculoskeletal: No acute osseous pathology. IMPRESSION: Right mid and lower lung perihilar airspace consolidation concerning for pneumonia. Continued follow- up is recommended.
--- NOTE | 2023-03-01 14:09 | CT ---
EXAMINATION TYPE: CT brain wo con CT DLP: 2832.7 mGycm, Automated exposure control for dose reduction was used. DATE OF EXAM: 03/01/2023 2:00 PM COMPARISON: Prior CT Brain from 09/12/2020 . CLINICAL INDICATION:Female, 62 years old with history of Altered mental status, AMS. Best possible im ages from patient, scanned more than once. TECHNIQUE: Brain: Multiple axial CT images of the brain were obtained without IV contrast. Coronal and sagittal reformats reviewed. FINDINGS: Motion degraded examination. Brain: Extra-axial spaces: No abnormal extra-axial fluid collections. Ventricular system: Within normal limits Cerebral parenchyma: No acute intraparenchymal hemorrhage or mass effect. The quiroz-white junction is well differentiated. Cerebellum: Unremarkable. Mass effect: No evidence of midline shift. Intracranial vasculature: unremarkable Soft tissues: Normal. Calvarium/osseous structures: No depressed skull fracture. Paranasal sinuses and mastoid air cells: Clear Visualized orbits: Orbital contents are intact. IMPRESSION: Motion limited examination. No gross evidence of an acute intracranial process.
[2023-03-01] MEDS ORDERED: AZITHROMYCIN 500 MG in SODIUM CHLORIDE 0.9% 250 ML IVPB STA (14:26)
[2023-03-01] MEDS ORDERED: PNEUMONIA PROTOCOL UTILIZED 1 EACH MISC PO PRN (14:26)
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
[2023-03-01 18:59] LABS: Alcohol <10 mg/dL
[2023-03-01 19:13] LABS: Lactic Acid, Venous 3.4 mmol/L (0.7-2.0)
[2023-03-01] MEDS: DEXTROSE 5% IN WATER 1,000 ML IV SCH (20:11)
[2023-03-01] MEDS: LITHIUM CARBONATE 300 MG PO SCH (21:08)
[2023-03-01] MEDS: FAMOTIDINE 20 MG/2 ML VIAL IV SCH (21:09)
[2023-03-01] MEDS: HEPARIN SODIUM,PORCINE/PF 5,000 UNIT/0.5 ML SYRINGE SQ SCH (21:10)
[2023-03-01] MEDS ORDERED: IPRATROPIUM-ALBUTEROL 3 ML NEB INHALATION PRN (22:25)
[2023-03-01] MEDS ORDERED: ACETAMINOPHEN IV (For NPO) 1,000 MG in EMPTY BAG 1 BAG IVPB PRN (22:37)
--- NOTE | 2023-03-01 23:06 | XR ---
EXAMINATION TYPE: XR chest 1V portable DATE OF EXAM: 03/01/2023 10:52 PM COMPARISON: Chest radiographs from TECHNIQUE: XR chest 1V portable Frontal view of the chest. CLINICAL INDICATION:Female, 62 years old with history of shortness of breath, hypoxia; FINDINGS: Lungs/Pleura: Improved aeration of the right lower lobe airspace opacities. There is no evidence of p leural effusion, focal consolidation, or pneumothorax. Pulmonary vascularity: Unremarkable. Heart/mediastinum: Cardiomediastinal silhouette is enlarged and stable. Musculoskeletal: No acute osseous pathology. IMPRESSION: Right lower lobe airspace opacities which appear improved compared to prior
[2023-03-02] MEDS: LORazepam 2 MG/ML INJ IV PRN ×2 (00:12→08:44)
[2023-03-02] MEDS: DEXTROSE 5% IN WATER 1,000 ML IV SCH ×3 (05:57→23:56)
[2023-03-02] MEDS: LEVOTHYROXINE 125 MCG TAB PO SCH (06:06)
[2023-03-02 07:16] LABS: Glucose,Whole Blood 98 mg/dL (70-110)
[2023-03-02] MEDS ORDERED: PANTOPRAZOLE 40 MG TABLET PO SCH (07:30)
[2023-03-02] MEDS: IPRATROPIUM-ALBUTEROL 3 ML NEB INHALATION SCH ×4 (08:36→20:14)
--- NOTE | 2023-03-02 08:43 | XR ---
EXAMINATION TYPE: XR chest 1V portable DATE OF EXAM: 03/02/2023 Comparison: 03/01/2023 Clinical History: 62-year-old female pneumonia Findings: Heart mildly enlarged. Some subtle air bronchograms in the medial right base. Possibly in the medial left base as well. Limited by large body habitus and underpenetration. No sizable pleural effusion on the frontal view. Impression: Portable exam limited by large body habitus. There is residual airspace disease of the medial right b ase. Some patchy retrocardiac atelectasis or developing infiltrate as well.
[2023-03-02] MEDS ORDERED: LORazepam 2 MG/ML INJ IV STA ×3 (11:03→15:07)
[2023-03-02] MEDS ORDERED: LORazepam 2 MG/ML INJ IV ONE ×2 (11:11)
[2023-03-02] MEDS: FAMOTIDINE 20 MG/2 ML VIAL IV SCH (11:18)
[2023-03-02] MEDS: HEPARIN SODIUM,PORCINE/PF 5,000 UNIT/0.5 ML SYRINGE SQ SCH (11:18)
[2023-03-02 11:30] LABS: ALT 25 U/L (4-34); AST 47 U/L (14-36); African American GFR (CKD) 35 (>60 ml/min/1.73 sqM); Albumin 2.8 g/dL (3.5-5.0); Alkaline Phosphatase 77 U/L (38-126); Anion Gap 10 mmol/L; Blood Urea Nitrogen 37 mg/dL (7-17); Calcium 9.2 mg/dL (8.4-10.2); Carbon Dioxide 22 mmol/L (22-30); Chloride 119 mmol/L (98-107); Glucose 119 mg/dL (74-99); Magnesium 2.2 mg/dL (1.6-2.3); Non-African American GFR(CKD) 31 (>60 ml/min/1.73 sqM); Potassium 3.3 mmol/L (3.5-5.1); Sodium 151 mmol/L (137-145); Total Bilirubin 0.5 mg/dL (0.2-1.3); Total Protein 5.2 g/dL (6.3-8.2)
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
[2023-03-02] MEDS ORDERED: Lacosamide IV (ages 17+ yrs) 200 MG/20 ML ML IVP STA (12:07)
[2023-03-02 12:23] LABS: HCT 38.9 % (34.0-46.0); HGB 12.8 gm/dL (11.4-16.0); Hypochromasia Slight; MCH 31.9 pg (25.0-35.0); MCHC 32.9 g/dL (31.0-37.0); Mean Platelet Volume 10.5; Platelet Count 166 k/uL (150-450); RBC 4.01 m/uL (3.80-5.40); RDW 13.7 % (11.5-15.5); WBC 15.5 k/uL (3.8-10.6)
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
[2023-03-02] MEDS: ATORVASTATIN 10 MG TAB PO SCH (13:13)
[2023-03-02] MEDS: ARIPiprazole 15 MG TAB PO SCH (13:13)
[2023-03-02] MEDS: AZITHROMYCIN 500 MG TAB PO SCH (13:13)
[2023-03-02] MEDS: LITHIUM CARBONATE 300 MG PO SCH ×2 (13:14→21:11)
[2023-03-02] MEDS: ESCITALOPRAM 10 MG TAB PO SCH (13:14)
[2023-03-02] MEDS: MULTIVITAMINS, THERA 1 EACH TAB PO SCH (13:14)
[2023-03-02] MEDS: OXYBUTYNIN XL 5 MG TAB.ER.24 PO SCH (13:14)
[2023-03-02] MEDS: ACYCLOVIR SODIUM 500 MG in SODIUM CHLORIDE 0.9% 100 ML IVPB SCH ×2 (13:51→22:04)
[2023-03-02] MEDS ORDERED: LORazepam 2 MG/ML INJ IM STA (14:59)
[2023-03-02] MEDS ORDERED: VALPROATE SODIUM 1,500 MG in SODIUM CHLORIDE 0.9% 100 ML IVPB STA (15:03)
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
[2023-03-02] MEDS: DEXTROSE 5% IN WATER 1,000 ML with POTASSIUM CHLORIDE 40 MEQ IV SCH ×2 (15:57→18:47)
--- NOTE | 2023-03-02 17:32 | P.CNPUL ---
History of Present Illness Consult date: 03/02/23 Requesting physician: Larry Flores Reason for consult: other (Critical care management) Chief complaint: Altered mental status History of present illness: This is a 62-year-old female patient with a known history of hyperlipidemia, hypothyroidism, anxiety/depression, hypertension, chronic and ongoing tobacco dependence, marijuana use, bipolar disorder and she was brought into the emergency room yesterday 03/01/2023 with altered mental status and unresponsiveness with intermittent episodes of restlessness. She apparently was covered in dried feces. Chest x-ray revealed right mid and lower lung. Hilar airspace consolidation concerning for pneumonia. Computed tomography scan of the brain revealed no gross evidence of acute intracranial process. White count 15.5. Hemodynamically 0.8. Platelets 166. Sodium 151. Potassium 3.3. Bicarb 22. BUN 37. Creatinine 1.76. Glucose 119. Lactic acid 2.1. AST 47. ALT 25. Urine drug screen positive for benzodiazepines. Influenza screen negative. RSV screen negative. COVID-19 screen negative. We're consulted today as the patient had an ongoing issues with restlessness requiring 7 mg of Ativan in the past hour and a half and requiring transfer to the intensive care unit. She is seen currently on the regular medical floor. She is arousable but drifts off easily. She is afebrile. She is maintaining O2 saturation 90s on room air. She's hemodynamically stable. She had been seen by neurology who is prescribing Ativan, Vimpat and Depakote to rule out seizure disorder. The plan is for a lumbar puncture and an MRI of the brain once the patient is more calm and cooperative. She will be transferred to the intensive care unit. Possible need for Precedex. Review of Systems ROS unobtainable: due to mental status Past Medical History Past Medical History: Hyperlipidemia, Hypertension, Thyroid Disorder Additional Past Medical History / Comment(s): Overactive bladder, constipation, hypothyroid History of Any Multi-Drug Resistant Organisms: None Reported Past Surgical History: Breast Surgery, Section, Cholecystectomy, Tubal Ligation Additional Past Surgical History / Comment(s): L breast benign lumpectomy Past Anesthesia/Blood Transfusion Reactions: No Reported Reaction Past Psychological History: Anxiety, Bipolar, Depression Additional Psychological History / Comment(s): Pt lives alone and lives independently. Smoking Status: Current every day smoker Past Alcohol Use History: None Reported Additional Past Alcohol Use History / Comment(s): Pt started smoking in 1971. Past Drug Use History: Marijuana Additional Drug Use History / Comment(s): Pt snorts caffeine pills. She uses marijuana recreationally - Past Family History Father Family Medical History: No Reported History Additional Family Medical History / Comment(s): Father was healthy Sister(s) Family Medical History: No Reported History Mother Family Medical History: Cancer Additional Family Medical History / Comment(s): Mother had breast cancer. Medications and Allergies Home Medications Medication Instructions Recorded Confirmed Type Atorvastatin [Lipitor] 10 mg PO DAILY 11/05/14 03/01/23 History Multivitamins, Thera [Multivitamin 1 tab PO DAILY 07/11/19 03/01/23 History (formulary)] Oxybutynin Xl [Ditropan XL] 5 mg PO DAILY 07/11/19 03/01/23 History Propranolol HCl [Propranolol HCl 60 mg PO DAILY 07/11/19 03/01/23 History ER] Levothyroxine Sodium [Synthroid] 125 mcg PO DAILY 09/12/20 03/01/23 History Pantoprazole [Protonix] 40 mg PO SUSAN-BRKFST #30 tablet. 09/14/20 03/01/23 Rx ARIPiprazole [Abilify Maintena] 400 mg IM Q28D 03/01/23 03/01/23 History ARIPiprazole [Abilify] 15 mg PO DAILY 03/01/23 03/01/23 History Escitalopram [Lexapro] 10 mg PO DAILY 03/01/23 03/01/23 History LORazepam [Ativan] 0.5 mg PO BID PRN 03/01/23 03/01/23 History [place] Carbonate [Lithobid] 300 mg PO BID 03/01/23 03/01/23 History Trihexyphenidyl HCl 5 mg PO BID 03/01/23 03/01/23 History Allergies Allergy/AdvReac Type Severity Reaction Status Date / Time No Known Allergies Allergy Verified 03/01/23 12:21 Physical Exam Vitals: Vital Signs Temp Pulse Pulse Resp BP BP Pulse Ox 03/02/23 16:27 97.9 F 68 18 103/65 93 L 03/02/23 16:17 96 03/02/23 16:04 92 03/02/23 14:00 68 18 03/02/23 12:34 97.8 F 99 20 131/82 93 L 03/02/23 12:18 72 03/02/23 12:10 72 03/02/23 09:03 98.2 F 99 22 118/84 91 L 03/02/23 08:50 80 03/02/23 08:37 80 93 L 03/02/23 08:00 99 20 03/02/23 04:00 97.5 F L 100 24 104/67 93 L 03/02/23 00:05 74 03/02/23 00:02 68 03/02/23 00:00 99.4 F 81 22 87/60 95 03/01/23 22:30 99.4 F 68 30 H 140/80 91 L 03/01/23 21:00 96 24 101/56 91 L 03/01/23 19:00 103 H 26 H 106/68 92 L Intake and Output 03/02/23 03/02/23 03/02/23 06:59 14:59 22:59 Output Total 1000 700 Balance -1000 -700 Output: Urine 1000 700 Other: Voiding Method Indwelling Catheter Indwelling Catheter # Bowel Movements 1 Weight 74.843 kg GENERAL EXAM: Sedated, arousable 62-year-old female, on room air, comfortable in no apparent distress. HEAD: Normocephalic. EYES: Normal reaction of pupils, equal size. NOSE: Clear with pink turbinates. THROAT: No erythema or exudates. NECK: No masses, no JVD. CHEST: No chest wall deformity. LUNGS: Equal air entry with no crackles, wheeze, rhonchi or dullness. CVS: S1 and S2 normal with no audible murmur, regular rhythm. ABDOMEN: No hepatosplenomegaly, normal bowel sounds, no guarding or rigidity. SPINE: No scoliosis or deformity SKIN: No rashes CENTRAL NERVOUS SYSTEM: Sedated, arousable. No focal deficits, tone is normal in all 4 extremities. EXTREMITIES: There is no peripheral edema. No clubbing, no cyanosis. Peripheral pulses are intact. Results - Laboratory Findings CBC and BMP: 03/02/23 10:49 03/02/23 10:49 PT/INR, D-dimer PT 11.8 sec (9.0-12.0) 03/01/23 12:36 INR 1.1 (<1.2) 03/01/23 12:36 Abnormal lab findings: Abnormal Labs 03/01/23 03/01/23 03/01/23 12:20 12:30 12:36 WBC 21.4 H Hct 46.4 H Neutrophils # (Manual) 18.60 H Monocytes # (Manual) 1.07 H Metamyelocytes # (Man) 0.64 H Myelocytes # (Manual) 0.21 H Nucleated RBCs 1 H APTT Sodium 150 H Potassium Chloride 112 H Carbon Dioxide 21 L BUN 38 H Creatinine 2.46 H Glucose 107 H Plasma Lactic Acid Pj 7.2 H* AST 44 H ALT 39 H Total Protein 5.9 L Albumin 3.3 L Urine Protein Urine Ketones Ur Leukocyte Esterase Urine Mucus U Benzodiazepines Scrn 03/01/23 03/01/23 03/01/23 12:36 12:36 18:46 WBC Hct Neutrophils # (Manual) Monocytes # (Manual) Metamyelocytes # (Man) Myelocytes # (Manual) Nucleated RBCs APTT 20.0 L Sodium Potassium Chloride Carbon Dioxide BUN Creatinine Glucose Plasma Lactic Acid Pj 3.4 H* AST ALT Total Protein Albumin Urine Protein Trace H Urine Ketones Trace H Ur Leukocyte Esterase Trace H Urine Mucus Rare H U Benzodiazepines Scrn Detected H 03/01/23 03/02/23 03/02/23 22:08 10:49 10:49 WBC 15.5 H Hct Neutrophils # (Manual) Monocytes # (Manual) Metamyelocytes # (Man) Myelocytes # (Manual) Nucleated RBCs APTT Sodium 151 H Potassium 3.3 L Chloride 119 H Carbon Dioxide BUN 37 H Creatinine 1.76 H Glucose 119 H Plasma Lactic Acid Pj 2.7 H* AST 47 H ALT Total Protein 5.2 L Albumin 2.8 L Urine Protein Urine Ketones Ur Leukocyte Esterase Urine Mucus U Benzodiazepines Scrn 03/02/23 10:49 WBC Hct Neutrophils # (Manual) Monocytes # (Manual) Metamyelocytes # (Man) Myelocytes # (Manual) Nucleated RBCs APTT Sodium Potassium Chloride Carbon Dioxide BUN Creatinine Glucose Plasma Lactic Acid Pj 2.1 H* AST ALT Total Protein Albumin Urine Protein Urine Ketones Ur Leukocyte Esterase Urine Mucus U Benzodiazepines Scrn - Diagnostic Findings Chest x-ray: image reviewed Assessment and Plan Assessment: Altered mental status of unclear etiology, possibly underlying sepsis, possible aspiration pneumonia, metabolic encephalopathy. Leukocytosis Hypernatremia Acute kidney injury History of bipolar disorder History of anxiety/depression History of hypertension Hypothyroidism Hyperlipidemia Plan: The patient was seen and evaluated Chest x-ray, computed tomography scan, labs and medications reviewed Neurology and nephrology consulted Lumbar puncture pending EEG pending Initiated on Vimpat, Depakote, acyclovir Continued on ceftriaxone and azithromycin D5W with 40 meq of KCl at 75 ML's per hour We'll transfer the patient to the intensive care unit May require Precedex once the Ativan wears off We will continue to follow and make further recommendations based on her clinical status I have personally seen and examined the patient, performed the documentation and the assessment and plan as written. Number of minutes spent on the visit: 20.
[2023-03-02 17:52] LABS: Glucose,Whole Blood 89 mg/dL (70-110)
[2023-03-02] MEDS: DEXMEDETOMIDINE/0.9% NACL(PMX) 400 MCG in EMPTY BAG 1 BAG IV SCH (18:02)
--- NOTE | 2023-03-02 19:39 | P.CONS ---
History of Present Illness - Reason for Consult Consult date: 03/02/23 - History of Present Illness Patient is a 62-year-old female with a past medical history significant for hypertension hyperlipidemia bipolar disorder patient was brought into the ER at [facility] yesterday morning after the patient was found to be unresponsive at home patient was noticed to be covered in her feces on the floor, on presentation to hospital patient was noticed to have low- grade fever of 99.5 F patient was hypoxic requiring supplemental oxygen, patient did have elevated lactic acid however blood pressure was stable patient did have vital at 21,000 with a left shift BUN and creatinine was elevated and slightly improved with IV fluid elevated lactic acid patient did have a chest x- ray airspace disease of the mid right base some patchy retrocardiac atelectasis or developing infiltrate patient was started on Rocephin and Zithromax infectious disease was consulted this morning concerning for pneumonia and sepsis most information has been obtained from review the chart as the patient was nonverbal and did not answer any question patient apparently has received some sedation and was not as restless and agitated per the sitter at the bedside no vomiting or diarrhea has been reported Past Medical History Past Medical History: Hyperlipidemia, Hypertension, Thyroid Disorder Additional Past Medical History / Comment(s): Overactive bladder, constipation, hypothyroid History of Any Multi-Drug Resistant Organisms: None Reported Past Surgical History: Breast Surgery, Section, Cholecystectomy, Tubal Ligation Additional Past Surgical History / Comment(s): L breast benign lumpectomy Past Anesthesia/Blood Transfusion Reactions: No Reported Reaction Past Psychological History: Anxiety, Bipolar, Depression Additional Psychological History / Comment(s): Pt lives alone and lives independently. Smoking Status: Current every day smoker Past Alcohol Use History: None Reported Additional Past Alcohol Use History / Comment(s): Pt started smoking in 1971. Past Drug Use History: Marijuana Additional Drug Use History / Comment(s): Pt snorts caffeine pills. She uses marijuana recreationally - Past Family History Father Family Medical History: No Reported History Additional Family Medical History / Comment(s): Father was healthy Sister(s) Family Medical History: No Reported History Mother Family Medical History: Cancer Additional Family Medical History / Comment(s): Mother had breast cancer. Medications and Allergies Home Medications Medication Instructions Recorded Confirmed Type Atorvastatin [Lipitor] 10 mg PO DAILY 11/05/14 03/01/23 History Multivitamins, Thera [Multivitamin 1 tab PO DAILY 07/11/19 03/01/23 History (formulary)] Oxybutynin Xl [Ditropan XL] 5 mg PO DAILY 07/11/19 03/01/23 History Propranolol HCl [Propranolol HCl 60 mg PO DAILY 07/11/19 03/01/23 History ER] Levothyroxine Sodium [Synthroid] 125 mcg PO DAILY 09/12/20 03/01/23 History Pantoprazole [Protonix] 40 mg PO SUSAN-HOMEROKFST #30 tablet. 09/14/20 03/01/23 Rx ARIPiprazole [Abilify Maintena] 400 mg IM Q28D 03/01/23 03/01/23 History ARIPiprazole [Abilify] 15 mg PO DAILY 03/01/23 03/01/23 History Escitalopram [Lexapro] 10 mg PO DAILY 03/01/23 03/01/23 History LORazepam [Ativan] 0.5 mg PO BID PRN 03/01/23 03/01/23 History [place] Carbonate [Lithobid] 300 mg PO BID 03/01/23 03/01/23 History Trihexyphenidyl HCl 5 mg PO BID 03/01/23 03/01/23 History Allergies Allergy/AdvReac Type Severity Reaction Status Date / Time No Known Allergies Allergy Verified 03/01/23 12:21 Physical Exam Vitals: Vital Signs Temp Pulse Pulse Resp BP BP Pulse Ox 03/02/23 09:03 98.2 F 99 22 118/84 91 L 03/02/23 08:50 80 03/02/23 08:37 80 93 L 03/02/23 04:00 97.5 F L 100 24 104/67 93 L 03/02/23 00:05 74 03/02/23 00:02 68 03/02/23 00:00 99.4 F 81 22 87/60 95 03/01/23 22:30 99.4 F 68 30 H 140/80 91 L 03/01/23 21:00 96 24 101/56 91 L 03/01/23 19:00 103 H 26 H 106/68 92 L 03/01/23 17:00 110 H 24 110/60 91 L 03/01/23 16:00 99 F 106 H 24 106/60 93 L 06/05/23 14:00 99.0 F 106 H 24 106/60 95 03/01/23 13:05 110 H 24 100/60 95 03/01/23 11:59 99.2 F 102 H 40 H 97/36 90 L Intake and Output 03/01/23 03/02/23 03/02/23 22:59 06:59 14:59 Output Total 600 1000 Balance -600 -1000 Output: Urine 600 1000 Other: Voiding Method Indwelling Catheter Indwelling Catheter # Bowel Movements 1 Weight 74.843 kg Results CBC & Chem 7: 03/02/23 10:49 03/02/23 10:49 Labs: Abnormal Lab Results - Last 24 Hours (Table) 03/01/23 03/01/23 03/01/23 Range/Units 12:20 12:30 12:36 WBC 21.4 H (3.8-10.6) k/uL Hct 46.4 H (34.0-46.0) % Neutrophils # (Manual) 18.60 H (1.3-7.7) k/uL Monocytes # (Manual) 1.07 H (0-1.0) k/uL Metamyelocytes # (Man) 0.64 H (0) k/uL Myelocytes # (Manual) 0.21 H (0) k/uL Nucleated RBCs 1 H (0-0) /100 WBC APTT (22.0-30.0) sec Sodium 150 H (137-145) mmol/L Chloride 112 H (98-107) mmol/L Carbon Dioxide 21 L (22-30) mmol/L BUN 38 H (7-17) mg/dL Creatinine 2.46 H (0.52-1.04) mg/dL Glucose 107 H (74-99) mg/dL Plasma Lactic Acid Pj 7.2 H* (0.7-2.0) mmol/L AST 44 H (14-36) U/L ALT 39 H (4-34) U/L Total Protein 5.9 L (6.3-8.2) g/dL Albumin 3.3 L (3.5-5.0) g/dL Urine Protein (Negative) Urine Ketones (Negative) Ur Leukocyte Esterase (Negative) Urine Mucus (None) /hpf U Benzodiazepines Scrn (NotDetected) 03/01/23 03/01/23 03/01/23 Range/Units 12:36 12:36 18:46 WBC (3.8-10.6) k/uL Hct (34.0-46.0) % Neutrophils # (Manual) (1.3-7.7) k/uL Monocytes # (Manual) (0-1.0) k/uL Metamyelocytes # (Man) (0) k/uL Myelocytes # (Manual) (0) k/uL Nucleated RBCs (0-0) /100 WBC APTT 20.0 L (22.0-30.0) sec Sodium (137-145) mmol/L Chloride (98-107) mmol/L Carbon Dioxide (22-30) mmol/L BUN (7-17) mg/dL Creatinine (0.52-1.04) mg/dL Glucose (74-99) mg/dL Plasma Lactic Acid Pj 3.4 H* (0.7-2.0) mmol/L AST (14-36) U/L ALT (4-34) U/L Total Protein (6.3-8.2) g/dL Albumin (3.5-5.0) g/dL Urine Protein Trace H (Negative) Urine Ketones Trace H (Negative) Ur Leukocyte Esterase Trace H (Negative) Urine Mucus Rare H (None) /hpf U Benzodiazepines Scrn Detected H (NotDetected) 03/01/23 Range/Units 22:08 WBC (3.8-10.6) k/uL Hct (34.0-46.0) % Neutrophils # (Manual) (1.3-7.7) k/uL Monocytes # (Manual) (0-1.0) k/uL Metamyelocytes # (Man) (0) k/uL Myelocytes # (Manual) (0) k/uL Nucleated RBCs (0-0) /100 WBC APTT (22.0-30.0) sec Sodium (137-145) mmol/L Chloride (98-107) mmol/L Carbon Dioxide (22-30) mmol/L BUN (7-17) mg/dL Creatinine (0.52-1.04) mg/dL Glucose (74-99) mg/dL Plasma Lactic Acid Pj 2.7 H* (0.7-2.0) mmol/L AST (14-36) U/L ALT (4-34) U/L Total Protein (6.3-8.2) g/dL Albumin (3.5-5.0) g/dL Urine Protein (Negative) Urine Ketones (Negative) Ur Leukocyte Esterase (Negative) Urine Mucus (None) /hpf U Benzodiazepines Scrn (NotDetected) Assessment and Plan Plan: 1patient presented hospital with an episode of unresponsiveness in this patient apparently was noticed to be covered in feces on the floor patient did have a low-grade fever on presentation to the hospital did have elevated white count and significant agitation concerning for possible encephalitis of viral etiology meningitis less likely but not entirely excluded 2-patient did have elevated creatinine high risk of nephrotoxicity from van comycin 3-Case has been discussed in detail with nephrology anesthesia has been consulted for LP send CSF for glucose protein cell count differential HSV DNA by PCR 4-we will check inflammatory markers and procalcitonin 5-we will continue patient on Rocephin and acyclovir while waiting for the work- up to be completed We will follow on clinical condition and cultures to further adjust medication if needed Thank you for this consultation we will follow the patient along with you Time with Patient: Greater than 30
--- NOTE | 2023-03-02 20:16 | EEG ---
ELECTROENCEPHALOGRAM REPORT CLINICAL HISTORY: This is a 62-year-old woman with altered mental status. The video EEG is obtained to evaluate for seizure epileptiform activity. RELEVANT MEDICATIONS: Ativan and Vimpat. EEG TYPE: A routine 21-channel EEG is performed with video using the 10/20 electrode placement system. DESCRIPTION: Wakefulness is only obtained. During the awake state, the background consists 6 to 7 hertz activity and at times intermixed with delta activity. There was no physiological stage 2 sleep architecture. There is no focal slowing. Interictal and ictal: There is moderate to frequent sharp and slow waves over the bifrontal lesion, but it appears it is stemming from the left frontal. No seizures noted. During the study patient has bilateral hand tremor without correlation for seizure. ACTIVATION PROCEDURES: Photic stimulation and hyperventilation are not performed. CLINICAL INTERPRETATION: This is an abnormal routine EEG. The background slowing is suggestive of moderate encephalopathy. There are also epileptiform discharges over bilateral frontal region, but it seems stemming from the left frontal. There is no seizure noted during the study. The bilateral hand tremors are not epileptic in nature. Clinical correlation is recommended. MMODL / IJN: [id number] / [facility]PITALSugey
[2023-03-02] MEDS ORDERED: FLUMAZENIL 0.1 MG/ML 5 ML VIAL IVP STA (20:52)
[2023-03-02 20:55] LABS: ABG Base Excess -2.1 mmol/L; ABG HCO3 25 mmol/L (21-25); ABG Oxygen Saturation 93.2 % (94-97); ABG PCO2 54 mmHg (35-45); ABG PH 7.27 (7.35-7.45); ABG PO2 70 mmHg (83-108); ABG TCO2 26 mmol/L (19-24); Allen Test Performed? Yes; Glucose,Whole Blood 113 mg/dL (70-110)
[2023-03-02] MEDS ORDERED: VALPROATE SODIUM 500 MG in SODIUM CHLORIDE 0.9% 100 ML IVPB SCH (21:00)
[2023-03-02] MEDS ORDERED: Lacosamide IV (ages 17+ yrs) 200 MG/20 ML ML IVP SCH (21:00)
[2023-03-02] MEDS ORDERED: LIDOCAINE 2% (PF) 20 MG/ML 5 ML VIAL ONE (21:07)
--- NOTE | 2023-03-02 21:19 | P.CON ---
Consult Note - . Consult date: 03/02/23 Assessment/Plan:: 62-year-old lady admitted with altered mental status with a history of psychiatric illness. Anesthesia was consulted for lumbar puncture for diagnostic purposes. Informed consent was obtained from the family and patient was positioned in the right lateral posture. Preoperative diagnosis: Altered mental status Post operative diagnoses: Altered mental status Anesthesia local infiltration with lidocaine 1% 2 mL. Condition: stable Complication: none. Description of the procedure procedure risk and benefits discussed with the family, consent signed. Patient and the procedure area placed in lateral position back prepped with iodine this solution 3 times been local infiltration of the skin and subcutaneous tissue with lidocaine 1% 2 mL for skin and subcu interstitial frustrations at L4 5 levels then 19-gauge Quincke-type needle a dvanced slowly at L4- 5 interlaminar space there was positive cerebrospinal fluid which was clear, no heme, no paresthesia ,total of 12 ML of clear cerebrospinal fluid collected in 4 different tubes 2-3 mL in each, then the needle removed and a Band-Aid applied and patient tolerated the procedure well without any complications. Sample handed over to the registered noticed to be sent to laboratory.
[2023-03-02] MEDS: PANTOPRAZOLE 40 MG/10 ML VIAL IVP SCH (21:26)
[2023-03-02] MEDS: Lacosamide IV (ages 17+ yrs) 200 MG/20 ML ML IVP SCH ×2 (22:25→23:57)
[2023-03-02 23:26] LABS: Glucose,CSF 77 mg/dL (40-70); Total Protein,CSF 50 mg/dL (12-60)
[2023-03-02] MEDS: NOREPINEPHRINE 4 MG in SODIUM CHLORIDE 0.9% 250 ML IV SCH (23:57)
[2023-03-03 02:02] LABS: Appearance,CSF Clear; CSF Tube Number 4
[2023-03-03 02:03] LABS: CSF Tube Volume 1.3; Nucleated Cells, CSF 0 u/L (0-5); Red Blood Cell,CSF 3 u/L (0-10)
[2023-03-03 05:12] LABS: Basophils % (A) 0 %; Eosinophils # (A) 0.1 k/uL (0-0.7); Eosinophils % (A) 1 %; HCT 41.6 % (34.0-46.0); HGB 12.9 gm/dL (11.4-16.0); Hypochromasia Moderate; Lymphocytes # (A) 0.7 k/uL (1.0-4.8); Lymphocytes % (A) 7 %; MCH 30.8 pg (25.0-35.0); MCV 99.5 fL (80.0-100.0); Mean Platelet Volume 9.6; Monocytes # (A) 0.3 k/uL (0-1.0); Monocytes % (A) 3 %; Neutrophils # (A) 9.2 k/uL (1.3-7.7); Neutrophils % (A) 88 %; Platelet Count 183 k/uL (150-450); RBC 4.18 m/uL (3.80-5.40); RDW 13.9 % (11.5-15.5); WBC 10.4 k/uL (3.8-10.6)
[2023-03-03 05:29] LABS: ALT 24 U/L (4-34); AST 30 U/L (14-36); African American GFR (CKD) 40 (>60 ml/min/1.73 sqM); Albumin 2.6 g/dL (3.5-5.0); Alkaline Phosphatase 80 U/L (38-126); Anion Gap 10 mmol/L; Blood Urea Nitrogen 26 mg/dL (7-17); Carbon Dioxide 21 mmol/L (22-30); Chloride 123 mmol/L (98-107); Glucose 147 mg/dL (74-99); Non-African American GFR(CKD) 35 (>60 ml/min/1.73 sqM); Potassium 3.4 mmol/L (3.5-5.1); Sodium 154 mmol/L (137-145); Total Bilirubin 0.3 mg/dL (0.2-1.3); Total Protein 5.1 g/dL (6.3-8.2)
[2023-03-03] MEDS ORDERED: Potassium Replacement Protocol 1 EACH MISC MISCELLANE PRN (06:03)
[2023-03-03] MEDS: LEVOTHYROXINE 125 MCG TAB PO SCH (06:41)
--- NOTE | 2023-03-03 06:52 | XR ---
EXAMINATION TYPE: XR chest 1V portable DATE OF EXAM: 03/03/2023 6:13 AM COMPARISON: Chest radiographs from 03/02/2023 TECHNIQUE: XR chest 1V portable Portable AP radiograph of the chest. CLINICAL INDICATION:Female, 62 years old with history of pneumonia; FINDINGS: Lungs/Pleura: No pleural effusion or pneumothorax. Increased patchy airspace opacity within the media l aspect of both lower lungs. Pulmonary vascularity: Unremarkable. Heart/mediastinum: Cardiomediastinal silhouette is enlarged and stable. Musculoskeletal: No acute osseous pathology. IMPRESSION: Increased patchy airspace opacities within the medial aspect of both lower lungs concerning for worse afshan pneumonia versus atelectasis.
[2023-03-03] MEDS: IPRATROPIUM-ALBUTEROL 3 ML NEB INHALATION SCH ×4 (08:00→19:56)
[2023-03-03] MEDS: ESCITALOPRAM 10 MG TAB PO SCH (08:02)
[2023-03-03] MEDS: ARIPiprazole 15 MG TAB PO SCH (08:02)
[2023-03-03] MEDS: LITHIUM CARBONATE 300 MG PO SCH ×2 (08:02→20:18)
[2023-03-03] MEDS: ATORVASTATIN 10 MG TAB PO SCH (08:02)
[2023-03-03] MEDS: OXYBUTYNIN XL 5 MG TAB.ER.24 PO SCH (08:03)
[2023-03-03] MEDS: MULTIVITAMINS, THERA 1 EACH TAB PO SCH (08:03)
[2023-03-03] MEDS: AZITHROMYCIN 500 MG TAB PO SCH (08:53)
[2023-03-03] MEDS: PANTOPRAZOLE 40 MG/10 ML VIAL IVP SCH ×2 (09:03→20:21)
[2023-03-03] MEDS: Lacosamide IV (ages 17+ yrs) 200 MG/20 ML ML IVP SCH ×2 (09:04→20:21)
[2023-03-03] MEDS: POTASSIUM CHLORIDE 10 MEQ in WATER FOR INJECTION 1 100ML.BAG IVPB SCH ×4 (09:04→13:55)
[2023-03-03] MEDS: DEXTROSE 5% IN WATER 1,000 ML IV SCH ×3 (09:30→19:50)
[2023-03-03] MEDS ORDERED: CYANOCOBALAMIN 1,000 MCG/ML 1 ML VIAL IM ONE (10:00)
[2023-03-03] MEDS: ACYCLOVIR SODIUM 500 MG in SODIUM CHLORIDE 0.9% 100 ML IVPB SCH (10:07)
--- NOTE | 2023-03-03 10:48 | CA ---
Transthoracic Echo Report Name: Alesia Eldridge Age: 62 Gender: F : 1960 Exam Date: 03/03/2023 07:24 Exam Location: [facility] Ht (in): 60 Wt (lb): 177 Ordering Physician: Yasmine Joseph Attending/Referring Phys: Township Clerk Remi Dunn Procedure CPT: Indications: ams, sepsis Cardiac Hx: Technical Quality: Technically difficult study Contrast 1: [place]ason Total Dose (mL): 5 Contrast 2: Agitated Saline Total Dose (mL): 10 MEASUREMENTS (Male / Female) Normal Values 2D ECHO LV Diastolic Diameter PLAX 4.3 cm 4.2 - 5.9 / 3.9 - 5.3 cm LV Systolic Diameter PLAX 3.6 cm IVS Diastolic Thickness 1.1 cm 0.6 - 1.0 / 0.6 - 0.9 cm LVPW Diastolic Thickness 1.0 cm 0.6 - 1.0 / 0.6 - 0.9 cm LV Relative Wall Thickness 0.5 RV Internal Dim ED PLAX 2.8 cm LVOT Diameter 1.9 cm Aortic Root Diameter 2.5 cm LA Systolic Diameter LX 2.8 cm 3.0 - 4.0 / 2.7 - 3.8 cm LV Diastolic Volume MOD BP 31.6 cm??? 67 - 155 / 56 - 104 cm??? LV Systolic Volume MOD BP 15.7 cm??? 22 - 58 / 19 - 49 cm??? LV Ejection Fraction MOD BP 50.4 % >= 55 % LV Diastolic Volume MOD 4C 30.9 cm??? LV Systolic Volume MOD 4C 11.6 cm??? LV Ejection Fraction MOD 4C 62.3 % LV Diastolic Length 4C 6.2 cm LV Systolic Length 4C 5.1 cm LV Diastolic Volume MOD 2C 30.2 cm??? LV Systolic Volume MOD 2C 20.5 cm??? LV Ejection Fraction MOD 2C 32.3 % LV Diastolic Length 2C 5.7 cm LV Systolic Length 2C 5.4 cm LA Volume 36.6 cm??? 18 - 58 / 22 - 52 cm??? Ascending Aorta Diameter 2.8 cm DOPPLER AV Peak Velocity 92.4 cm/s AV Peak Gradient 3.4 mmHg LVOT Peak Velocity 77.7 cm/s LVOT Peak Gradient 2.4 mmHg AV Area Cont Eq pk 2.3 cm??? MV Peak Velocity 77.8 cm/s MV Peak Gradient 2.4 mmHg MV Mean Velocity 36.1 cm/s MV Mean Gradient 0.7 mmHg MV Velocity Time Integral 27.4 cm MR Peak Velocity 190.1 cm/s MR Peak Gradient 14.5 mmHg Mitral E Point Velocity 63.9 cm/s Mitral A Point Velocity 58.2 cm/s Mitral E to A Ratio 1.1 MV Deceleration Time 167.8 ms MV E' Velocity 6.9 cm/s Mitral E to MV E' Ratio 9.2 TR Peak Velocity 215.9 cm/s TR Peak Gradient 18.6 mmHg Right Ventricular Systolic Press 24.5 mmHg PV Peak Velocity 67.8 cm/s PV Peak Gradient 1.8 mmHg FINDINGS Left Ventricle Left ventricular ejection fraction is estimated at 20-25 %. Right Ventricle Normal right ventricular size. RVSP=36mmhg. Right Atrium Normal right atrial size. Left Atrium Normal left atrial size. Mitral Valve Structurally normal mitral valve. Trace MR. Aortic Valve Trileaflet aortic valve. No aortic valve stenosis or regurgitation. Tricuspid Valve Structurally normal tricuspid valve. Mild TR. Pulmonic Valve Pulmonic valve not well visualized. Trace PI. Pericardium Normal pericardium. Aorta Normal size aortic root and proximal ascending aorta. CONCLUSIONS Dilated LV with impaired function and EF of 25% Previewed by: Dr. Kirill Badillo MD (Electronically Signed) Final Date: 03 March 2023 10:47
[2023-03-03] MEDS: PIPERACILLIN-TAZOBACTAM 3.375 GM in SODIUM CHLORIDE 0.9% 100 ML IVPB SCH ×2 (10:55→19:48)
--- NOTE | 2023-03-03 11:03 | P.PN ---
Subjective Patient is a 62-year-old female seen for follow-up for severe hyponatremia and acute kidney injury. Patient remains obtunded and was transferred to the ICU yesterday. Patient has been started on Precedex. Serum sodium has increased to 154 this morning. D5W is running at 125 mL an hour. Patient is having a feeding tube placed for free water along with D5W. Serum creatinine down to 1.59. Patient was on low-dose levo fed last night but currently off of pressors. Objective - Vital Signs Vital signs: Vital Signs Temp 97.8 F 03/03/23 08:00 Pulse 65 03/03/23 10:00 Resp 30 H 03/03/23 10:00 BP 99/74 03/03/23 10:00 Pulse Ox 96 03/03/23 10:00 FiO2 Intake & Output 03/02/23 03/03/23 03/03/23 18:59 06:59 18:59 Intake Total 77.526 1379.354 560 Output Total 850 1175 450 Balance -772.474 204.354 110 Weight 74.843 kg 80.6 kg Intake: IV 75 1325 125 Acyclovir Sodium 500 mg 100 In Sodium Chloride 0.9% 100 ml @ 100 mls/hr IVPB Q12HR [facility] Rx#:[id number] Dextrose 5% in Water 1, 875 125 000 ml @ 125 mls/hr IV . Q8H [facility] Rx#:[id number] Dextrose 5% in Water 1, 75 300 000 ml @ 75 mls/hr IV . [id number] [facility] with Potassium Chloride 40 meq Rx#:[id number] cefTRIAXone 2 gm In 50 Sodium Chloride 0.9% 50 ml @ 100 mls/hr IVPB Q12HR [facility] Rx#:[id number] Intake, IV Titration 2.526 54.354 435 Amount Dexmedetomidine/0.9% NaCl 2.526 24.792 (Pmx) 400 mcg In Empty Bag 1 bag @ 0.2 MCG/KG/HR 3.742 mls/hr IV .Q24H [facility] Rx#:[id number] Dextrose 5% in Water 1, 375 000 ml @ 125 mls/hr IV . Q8H [facility] Rx#:[id number] Norepinephrine 4 mg In 29.562 Sodium Chloride 0.9% 250 ml @ 0.03 MCG/KG/MIN 8. 555 mls/hr IV .Q24H [facility] Rx#:[id number] Potassium Chloride 10 meq 10 In Water For Injection 1 100ml.bag @ 100 mls/hr IVPB Q1HR [facility] Rx#: [id number] cefTRIAXone 2 gm In 50 Sodium Chloride 0.9% 50 ml @ 100 mls/hr IVPB Q12HR [facility] Rx#:[id number] Oral 0 Output: Urine 850 1175 450 Other: Voiding Method Indwelling Catheter Indwelling Catheter - Exam Patient remains obtunded Continues to be restless. Examination of the heart S1 and S2 Examination of the lungs bilateral breath sounds are heard Abdomen is soft nontender Examination of lower extremities shows no significant edema - Labs CBC & Chem 7: 03/03/23 04:30 03/03/23 04:30 Labs: Abnormal Lab Results - Last 24 Hours (Table) 03/02/23 03/02/23 03/02/23 Range/Units 10:49 10:49 10:49 WBC 15.5 H (3.8-10.6) k/uL Neutrophils # (1.3-7.7) k/uL Lymphocytes # (1.0-4.8) k/uL ABG pH (7.35-7.45) ABG pCO2 (35-45) mmHg ABG pO2 (83-108) mmHg ABG Total CO2 (19-24) mmol/L ABG O2 Saturation (94-97) % Sodium 151 H (137-145) mmol/L Potassium 3.3 L (3.5-5.1) mmol/L Chloride 119 H (98-107) mmol/L Carbon Dioxide (22-30) mmol/L BUN 37 H (7-17) mg/dL Creatinine 1.76 H (0.52-1.04) mg/dL Glucose 119 H (74-99) mg/dL POC Glucose (mg/dL) (70-110) mg/dL Plasma Lactic Acid Pj 2.1 H* (0.7-2.0) mmol/L AST 47 H (14-36) U/L C-Reactive Protein (<1.0) mg/dL Total Protein 5.2 L (6.3-8.2) g/dL Albumin 2.8 L (3.5-5.0) g/dL CSF Glucose (40-70) mg/dL 03/02/23 03/02/23 03/02/23 Range/Units 20:54 20:54 21:15 WBC (3.8-10.6) k/uL Neutrophils # (1.3-7.7) k/uL Lymphocytes # (1.0-4.8) k/uL ABG pH 7.27 L (7.35-7.45) ABG pCO2 54 H (35-45) mmHg ABG pO2 70 L (83-108) mmHg ABG Total CO2 26 H (19-24) mmol/L ABG O2 Saturation 93.2 L (94-97) % Sodium (137-145) mmol/L Potassium (3.5-5.1) mmol/L Chloride (98-107) mmol/L Carbon Dioxide (22-30) mmol/L BUN (7-17) mg/dL Creatinine (0.52-1.04) mg/dL Glucose (74-99) mg/dL POC Glucose (mg/dL) 113 H (70-110) mg/dL Plasma Lactic Acid Pj (0.7-2.0) mmol/L AST (14-36) U/L C-Reactive Protein (<1.0) mg/dL Total Protein (6.3-8.2) g/dL Albumin (3.5-5.0) g/dL CSF Glucose 77 H (40-70) mg/dL 03/02/23 03/03/23 03/03/23 Range/Units 23:35 04:30 04:30 WBC (3.8-10.6) k/uL Neutrophils # 9.2 H (1.3-7.7) k/uL Lymphocytes # 0.7 L (1.0-4.8) k/uL ABG pH (7.35-7.45) ABG pCO2 (35-45) mmHg ABG pO2 (83-108) mmHg ABG Total CO2 (19-24) mmol/L ABG O2 Saturation (94-97) % Sodium 154 H (137-145) mmol/L Potassium 5.3 H 3.4 L (3.5-5.1) mmol/L Chloride 123 H (98-107) mmol/L Carbon Dioxide 21 L (22-30) mmol/L BUN 26 H (7-17) mg/dL Creatinine 1.59 H (0.52-1.04) mg/dL Glucose 147 H (74-99) mg/dL POC Glucose (mg/dL) (70-110) mg/dL Plasma Lactic Acid Pj (0.7-2.0) mmol/L AST (14-36) U/L C-Reactive Protein 26.0 H (<1.0) mg/dL Total Protein 5.1 L (6.3-8.2) g/dL Albumin 2.6 L (3.5-5.0) g/dL CSF Glucose (40-70) mg/dL Assessment and Plan Assessment: 1. Acute kidney injury, ischemic ATN associated with hypotension, currently nonoliguric and improving. UA shows trace protein no blood or cells 2. Hypernatremia associated with free water deficit. Patient had likely not been eating or drinking for quite some time. Currently maintained on D5W 3. Mental status changes associated with electrolyte imbalance and sepsis, possibly related to medications. Drug screen is negative except for benzodiazepines which is noted on her med list. 4. Lactic acidosis associated with hypotension 5. Hypokalemia associated with decreased oral intake 6. Right-sided community-acquired pneumonia with sepsis Plan: Continue D5W Increase to 150 ML an hour Agree with free water with feeding tube Repeat sodium later this evening.
[2023-03-03] MEDS: DEXMEDETOMIDINE/0.9% NACL(PMX) 400 MCG in EMPTY BAG 1 BAG IV SCH ×2 (11:17→19:50)
--- NOTE | 2023-03-03 11:52 | XR ---
EXAMINATION TYPE: XR chest 1V portable DATE OF EXAM: 03/03/2023 11:40 AM COMPARISON: Chest radiographs from 03/03/2023 TECHNIQUE: XR chest 1V portable frontal chest radiograph the lower chest and upper abdomen was obtain ed. CLINICAL INDICATION:Female, 62 years old with history of post ng tube placement; FINDINGS: Lungs/Pleura: No visualized pneumothorax. No pleural effusions. Similar patchy bibasilar airspace opa cities. Pulmonary vascularity: Unremarkable. Heart/mediastinum: Cardiomediastinal silhouette is enlarged and stable. Musculoskeletal: No acute osseous pathology. Other findings: Surgical clips in the right upper quadrant. Lines/Tubes: Nasogastric tube with its distal tip and side-port projecting under the diaphragm and projecting over the gastric lumen. Distal tip is identified within the distal stomach. IMPRESSION: 1. NG tube placement with distal tip identified with in the region of the distal stomach. 2. Redemonstration of patchy bibasilar airspace opacities concerning for pneumonia.
--- NOTE | 2023-03-03 12:03 | P.PN ---
Subjective Progress Note Date: 03/03/23 The patient is seen at bedside and is on IV Precedex. She continues to be drowsy per nurse. Objective - Vital Signs Vital signs: Vital Signs Temp 97.8 F 03/03/23 08:00 Pulse 56 L 03/03/23 11:00 Resp 31 H 03/03/23 11:00 BP 117/76 03/03/23 11:00 Pulse Ox 98 03/03/23 11:00 FiO2 Intake & Output 03/02/23 03/03/23 03/03/23 18:59 06:59 18:59 Intake Total 77.526 1379.354 810.414 Output Total 850 1175 510 Balance -772.474 204.354 300.414 Weight 74.843 kg 80.6 kg Intake: IV 75 1325 125 Acyclovir Sodium 500 mg 100 In Sodium Chloride 0.9% 100 ml @ 100 mls/hr IVPB Q12HR [facility] Rx#:[id number] Dextrose 5% in Water 1, 875 125 000 ml @ 125 mls/hr IV . Q8H [facility] Rx#:[id number] Dextrose 5% in Water 1, 75 300 000 ml @ 75 mls/hr IV . [id number] [facility] with Potassium Chloride 40 meq Rx#:[id number] cefTRIAXone 2 gm In 50 Sodium Chloride 0.9% 50 ml @ 100 mls/hr IVPB Q12HR [facility] Rx#:[id number] Intake, IV Titration 2.526 54.354 685.414 Amount Dexmedetomidine/0.9% NaCl 2.526 24.792 25.414 (Pmx) 400 mcg In Empty Bag 1 bag @ 0.2 MCG/KG/HR 3.742 mls/hr IV .Q24H [facility] Rx#:[id number] Dextrose 5% in Water 1, 500 000 ml @ 150 mls/hr IV . Q6H40M [facility] Rx#:[id number] Norepinephrine 4 mg In 29.562 Sodium Chloride 0.9% 250 ml @ 0.03 MCG/KG/MIN 8. 555 mls/hr IV .Q24H [facility] Rx#:[id number] Piperacillin-Tazobactam 3 100 .375 gm In Sodium Chloride 0.9% 100 ml @ 25 mls/hr IVPB Q8H [facility] Rx#: [id number] Potassium Chloride 10 meq 10 In Water For Injection 1 100ml.bag @ 100 mls/hr IVPB Q1HR [facility] Rx#: [id number] cefTRIAXone 2 gm In 50 Sodium Chloride 0.9% 50 ml @ 100 mls/hr IVPB Q12HR [facility] Rx#:[id number] Oral 0 Output: Urine 850 1175 510 Other: Voiding Method Indwelling Catheter Indwelling Catheter Indwelling Catheter - Exam Neuro: Limited since on IV Precedex 0.2mcg/kg/hr. Is stupor. Not verbalizing or following commnds. No facial weakness. Motor: Strength is limited because of her condition. Has brief episode of trem or of uppers. SOME OF THE WORK-UP DURING THIS HOSPITAL VISIT CONSISTED OF: White blood cell is 21.4 thousand predominant neutrophilic--resolved Sodium is 150--154, creatnine 2.46--1.59, AST and ALT mildly elevated. Ammonia <9. TSH: 0.656 Vitamin B12: 286 (low normal) Folate: 15.3 Urine drug screen: Positive for benzo. Otherwise negative. Serum alcohol <10 [place] is 1 which is therapeutic. SARS-CoV-2 PCR, influenza A/B and RSV are negative. CT head is reported as no gross evidence of an acute intracranial process. I personally reviewed CT and agree with report. Chest x-ray was reported as mild and lower lung perihilar space consolidation concerning for pneumonia. CSF study: clear, colorless, 0 nucleated cell, 77 glucose, 50 protein. EEG: As abnormal. Tobacco slowing suggestive of moderate encephalopathy. There are epileptiform discharges over bilateral frontal region but stemming from the left frontal. There is no seizures noted during the study. The patient tremor was seen during the study without any correlation for seizure. Clinical correlation is recommended - Labs CBC & Chem 7: 03/03/23 04:30 03/03/23 17:31 Labs: Abnormal Lab Results - Last 24 Hours (Table) 03/02/23 03/02/23 03/02/23 Range/Units 10:49 20:54 20:54 WBC 15.5 H (3.8-10.6) k/uL Neutrophils # (1.3-7.7) k/uL Lymphocytes # (1.0-4.8) k/uL ABG pH 7.27 L (7.35-7.45) ABG pCO2 54 H (35-45) mmHg ABG pO2 70 L (83-108) mmHg ABG Total CO2 26 H (19-24) mmol/L ABG O2 Saturation 93.2 L (94-97) % Sodium (137-145) mmol/L Potassium (3.5-5.1) mmol/L Chloride (98-107) mmol/L Carbon Dioxide (22-30) mmol/L BUN (7-17) mg/dL Creatinine (0.52-1.04) mg/dL Glucose (74-99) mg/dL POC Glucose (mg/dL) 113 H (70-110) mg/dL C-Reactive Protein (<1.0) mg/dL Total Protein (6.3-8.2) g/dL Albumin (3.5-5.0) g/dL CSF Glucose (40-70) mg/dL 03/02/23 03/02/23 03/03/23 Range/Units 21:15 23:35 04:30 WBC (3.8-10.6) k/uL Neutrophils # 9.2 H (1.3-7.7) k/uL Lymphocytes # 0.7 L (1.0-4.8) k/uL ABG pH (7.35-7.45) ABG pCO2 (35-45) mmHg ABG pO2 (83-108) mmHg ABG Total CO2 (19-24) mmol/L ABG O2 Saturation (94-97) % Sodium (137-145) mmol/L Potassium 5.3 H (3.5-5.1) mmol/L Chloride (98-107) mmol/L Carbon Dioxide (22-30) mmol/L BUN (7-17) mg/dL Creatinine (0.52-1.04) mg/dL Glucose (74-99) mg/dL POC Glucose (mg/dL) (70-110) mg/dL C-Reactive Protein (<1.0) mg/dL Total Protein (6.3-8.2) g/dL Albumin (3.5-5.0) g/dL CSF Glucose 77 H (40-70) mg/dL 03/03/23 Range/Units 04:30 WBC (3.8-10.6) k/uL Neutrophils # (1.3-7.7) k/uL Lymphocytes # (1.0-4.8) k/uL ABG pH (7.35-7.45) ABG pCO2 (35-45) mmHg ABG pO2 (83-108) mmHg ABG Total CO2 (19-24) mmol/L ABG O2 Saturation (94-97) % Sodium 154 H (137-145) mmol/L Potassium 3.4 L (3.5-5.1) mmol/L Chloride 123 H (98-107) mmol/L Carbon Dioxide 21 L (22-30) mmol/L BUN 26 H (7-17) mg/dL Creatinine 1.59 H (0.52-1.04) mg/dL Glucose 147 H (74-99) mg/dL POC Glucose (mg/dL) (70-110) mg/dL C-Reactive Protein 26.0 H (<1.0) mg/dL Total Protein 5.1 L (6.3-8.2) g/dL Albumin 2.6 L (3.5-5.0) g/dL CSF Glucose (40-70) mg/dL Assessment and Plan Assessment: Severe Altered mental status seems due to underlying sepsis from possibly pneumonia and metabolic encephalopathy. CSF study is negative. EEG was negative for seizure but had discharges likely stemming from left frontal region. Tremor of upper extremities and per sister is chronic and is due to psych medication Possible underlying Pneumonia Leukocytosis and no fever yet: Possible pneumonia---resolved Hypernatremia--worsening KAHLIL Hypertension Hypothyroidism Bipolar Anxiety/depression Plan: I cancelled Acyclovir and will defer use of antibiotic to I.D. team. She is on Vimpat 100mg bid (started during this hospital visit) and patient has discharges stemming likely from left frontal. The tremors of uppers was recorded during EEG study without correlation for seizure. Will get repeat EEG study. Because of low normal vitamin B12, started her on Vitamin B12 1000mcg IM once then PO after that. Pending MRI Brain once stable to rule out central cause. Will defer the management to primary and other specialist. The plan is discussed with ICU attending and Primary team's N.P. Later, I have updated the patient's sister via phone. Dr. Terrell will start neurology service tomorrow A.M. Time with Patient: Less than 30
--- NOTE | 2023-03-03 13:33 | P.PN ---
Subjective Progress Note Date: 03/03/23 Principal diagnosis: Altered mental status, acute aspiration pneumonia and metabolic encephalopathy This is a 62-year-old female patient with a known history of hyperlipidemia, hy pothyroidism, anxiety/depression, hypertension, chronic and ongoing tobacco dependence, marijuana use, bipolar disorder and she was brought into the emergency room yesterday 03/01/2023 with altered mental status and unresponsiveness with intermittent episodes of restlessness. She apparently was covered in dried feces. Chest x-ray revealed right mid and lower lung. Hilar airspace consolidation concerning for pneumonia. Computed tomography scan of the brain revealed no gross evidence of acute intracranial process. White count 15.5. Hemodynamically 0.8. Platelets 166. Sodium 151. Potassium 3.3. Bicarb 22. BUN 37. Creatinine 1.76. Glucose 119. Lactic acid 2.1. AST 47. ALT 25. Urine drug screen positive for benzodiazepines. Influenza screen negative. RSV screen negative. COVID-19 screen negative. We're consulted today as the patient had an ongoing issues with restlessness requiring 7 mg of Ativan in the past hour and a half and requiring transfer to the intensive care unit. She is seen currently on the regular medical floor. She is arousable but drifts off easily. She is afebrile. She is maintaining O2 saturation 90s on room air. She's hemodynamically stable. She had been seen by neurology who is prescribing Ativan, Vimpat and Depakote to rule out seizure disorder. The plan is for a lumbar puncture and an MRI of the brain once the patient is more calm and cooperative. She will be transferred to the intensive care unit. Possible need for Precedex. Patient was reevaluated today on 03/03/2023, I saw this patient yesterday on consultation, and I recommended transfer to the ICU. Patient apparently had an acute onset of altered mental status, and she was extremely agitated on the floor, requiring significant amount of sedation. Transfer the patient to the ICU and placed on Precedex. Remains on Precedex at 0.2. Remains on D5W at 1 25 mL per hour. Patient had a lumbar puncture yesterday which is so far nondiagnostic. Patient is off acyclovir and off ceftriaxone, I will recommend Zosyn for possible potential aspiration pneumonia. We'll address her hypernatremia with giving her more free water. Patient obviously presented with significant free water deficit and dehydration. She is now on nasal cannula at 2 L, doesn't seem to be in respiratory distress, but she is intermittently agitated, remains encephalopathic, seen by neurology, CT of the brain is nondiagnostic spinal fluid is nondiagnostic. Neurology is recommending MRI. In the meantime I will address her metabolic derangements, and continue to monitor in the ICU WBC count is 10.4 hemoglobin is 12.9. Sodium is 154 today chloride is 123 BUN is down to 26 and her creatinine is 1.59, improving to compared to creatinine 2.46 on 03/01. Pro-calcitonin level is elevated at 15.8. Patient does have a pneumonia involving mostly the right side, and I strongly suspect aspiration pneumonia. Spinal fluid protein is 50 and glucose is 77. Chest x- ray today shows nasogastric tube in the distal stomach, and she has a patchy bibasilar airspace opacities again mostly consistent with aspiration pneumonia. Ejection fraction on this patient is 20-25% at best. I'll see the patient has severe cardiomyopathy, we will consult cardiology to evaluate. Objective - Vital Signs Vital signs: Vital Signs Temp 97.9 F 03/03/23 12:00 Pulse 60 03/03/23 12:30 Resp 26 H 03/03/23 12:30 BP 127/70 03/03/23 12:30 Pulse Ox 95 03/03/23 12:30 FiO2 Intake & Output 03/02/23 03/03/23 03/03/23 18:59 06:59 18:59 Intake Total 77.526 1379.354 970.414 Output Total 850 1175 585 Balance -772.474 204.354 385.414 Weight 74.843 kg 80.6 kg Intake: IV 75 1325 125 Acyclovir Sodium 500 mg 100 In Sodium Chloride 0.9% 100 ml @ 100 mls/hr IVPB Q12HR [facility] Rx#:[id number] Dextrose 5% in Water 1, 875 125 000 ml @ 125 mls/hr IV . Q8H [facility] Rx#:[id number] Dextrose 5% in Water 1, 75 300 000 ml @ 75 mls/hr IV . [id number] [facility] with Potassium Chloride 40 meq Rx#:[id number] cefTRIAXone 2 gm In 50 Sodium Chloride 0.9% 50 ml @ 100 mls/hr IVPB Q12HR [facility] Rx#:[id number] Intake, IV Titration 2.526 54.354 845.414 Amount Dexmedetomidine/0.9% NaCl 2.526 24.792 25.414 (Pmx) 400 mcg In Empty Bag 1 bag @ 0.2 MCG/KG/HR 3.742 mls/hr IV .Q24H [facility] Rx#:[id number] Dextrose 5% in Water 1, 650 000 ml @ 150 mls/hr IV . Q6H40M [facility] Rx#:[id number] Norepinephrine 4 mg In 29.562 Sodium Chloride 0.9% 250 ml @ 0.03 MCG/KG/MIN 8. 555 mls/hr IV .Q24H [facility] Rx#:[id number] Piperacillin-Tazobactam 3 100 .375 gm In Sodium Chloride 0.9% 100 ml @ 25 mls/hr IVPB Q8H [facility] Rx#: [id number] Potassium Chloride 10 meq 20 In Water For Injection 1 100ml.bag @ 100 mls/hr IVPB Q1HR [facility] Rx#: [id number] cefTRIAXone 2 gm In 50 Sodium Chloride 0.9% 50 ml @ 100 mls/hr IVPB Q12HR [facility] Rx#:[id number] Oral 0 Output: Urine 850 1175 585 Other: Voiding Method Indwelling Catheter Indwelling Catheter Indwelling Catheter - Exam GENERAL EXAM: Patient is sedated, on Precedex, does not seem to be in distress, however intermittently opens her eyes and gets agitated with what seems to be myoclonic jerks of the left upper extremity. HEAD: Normocephalic. EYES: Normal reaction of pupils, equal size. NOSE: Clear with pink turbinates. THROAT: No erythema or exudates. NECK: No masses, no JVD. CHEST: No chest wall deformity. LUNGS: Equal air entry with no crackles, wheeze, rhonchi or dullness. CVS: S1 and S2 normal with no audible murmur, regular rhythm. ABDOMEN: No hepatosplenomegaly, normal bowel sounds, no guarding or rigidity. SKIN: No rashes CENTRAL NERVOUS SYSTEM: On Precedex, encephalopathic, intermittently agitated, and wakes up with what seems to be like myoclonic jerks of the left upper extremity/forearm. EXTREMITIES: There is no peripheral edema. No clubbing, no cyanosis. Peripheral pulses are intact. - Labs CBC & Chem 7: 03/03/23 04:30 03/03/23 04:30 Labs: Abnormal Lab Results - Last 24 Hours (Table) 03/02/23 03/02/23 03/02/23 Range/Units 20:54 20:54 21:15 Neutrophils # (1.3-7.7) k/uL Lymphocytes # (1.0-4.8) k/uL ABG pH 7.27 L (7.35-7.45) ABG pCO2 54 H (35-45) mmHg ABG pO2 70 L (83-108) mmHg ABG Total CO2 26 H (19-24) mmol/L ABG O2 Saturation 93.2 L (94-97) % Sodium (137-145) mmol/L Potassium (3.5-5.1) mmol/L Chloride (98-107) mmol/L Carbon Dioxide (22-30) mmol/L BUN (7-17) mg/dL Creatinine (0.52-1.04) mg/dL Glucose (74-99) mg/dL POC Glucose (mg/dL) 113 H (70-110) mg/dL C-Reactive Protein (<1.0) mg/dL Total Protein (6.3-8.2) g/dL Albumin (3.5-5.0) g/dL Procalcitonin (0.02-0.09) ng/mL CSF Glucose 77 H (40-70) mg/dL 03/02/23 03/03/23 03/03/23 Range/Units 23:35 04:30 04:30 Neutrophils # 9.2 H (1.3-7.7) k/uL Lymphocytes # 0.7 L (1.0-4.8) k/uL ABG pH (7.35-7.45) ABG pCO2 (35-45) mmHg ABG pO2 (83-108) mmHg ABG Total CO2 (19-24) mmol/L ABG O2 Saturation (94-97) % Sodium (137-145) mmol/L Potassium 5.3 H (3.5-5.1) mmol/L Chloride (98-107) mmol/L Carbon Dioxide (22-30) mmol/L BUN (7-17) mg/dL Creatinine (0.52-1.04) mg/dL Glucose (74-99) mg/dL POC Glucose (mg/dL) (70-110) mg/dL C-Reactive Protein (<1.0) mg/dL Total Protein (6.3-8.2) g/dL Albumin (3.5-5.0) g/dL Procalcitonin 15.80 H (0.02-0.09) ng/mL CSF Glucose (40-70) mg/dL 03/03/23 Range/Units 04:30 Neutrophils # (1.3-7.7) k/uL Lymphocytes # (1.0-4.8) k/uL ABG pH (7.35-7.45) ABG pCO2 (35-45) mmHg ABG pO2 (83-108) mmHg ABG Total CO2 (19-24) mmol/L ABG O2 Saturation (94-97) % Sodium 154 H (137-145) mmol/L Potassium 3.4 L (3.5-5.1) mmol/L Chloride 123 H (98-107) mmol/L Carbon Dioxide 21 L (22-30) mmol/L BUN 26 H (7-17) mg/dL Creatinine 1.59 H (0.52-1.04) mg/dL Glucose 147 H (74-99) mg/dL POC Glucose (mg/dL) (70-110) mg/dL C-Reactive Protein 26.0 H (<1.0) mg/dL Total Protein 5.1 L (6.3-8.2) g/dL Albumin 2.6 L (3.5-5.0) g/dL Procalcitonin (0.02-0.09) ng/mL CSF Glucose (40-70) mg/dL Microbiology - Last 24 Hours (Table) 03/01/23 14:53 Blood Culture - Preliminary Blood 03/01/23 14:53 Blood Culture - Preliminary Blood Assessment and Plan Assessment: Impression: Aspiration pneumonia Altered mental status of unclear etiology, possibly underlying sepsis, possible aspiration pneumonia, metabolic encephalopathy. Leukocytosis, secondary to pneumonia. Hypernatremia, secondary to dehydration and free water deficit. Acute kidney injury, I suspect that this is mostly a picture of dehydration improving with hydration. History of bipolar disorder Cardiomyopathy and LV dysfunction. History of anxiety/depression History of hypertension Hypothyroidism Hyperlipidemia Plan: Continue to monitor the patient in the ICU Repeat ABG Lumbar puncture report has been noted, the findings on the spinal fluid are nondiagnostic. Change antibiotics to Zosyn, meningitis was basically ruled out based on the spinal fluid studies, will utilize Zosyn for result of aspiration pneumonia Continue D5W for now and use free water via orogastric tube, and address nutrition/enteral feeding Continue Precedex. Discussed her condition with neurology on the case. Norepinephrine was discontinued this morning. Consult cardiology for cardiomyopathy and LV dysfunction, abnormal echocardiogram We'll continue to follow Time with Patient: Less than 30
--- NOTE | 2023-03-03 13:47 | P.PN ---
Subjective Progress Note Date: 03/03/23 Principal diagnosis: Sepsis/pneumonia Patient is a 62-year-old female with a past medical history significant for hypertension hyperlipidemia bipolar disorder patient was brought into the ER at [facility] after the patient was found to be unresponsive at home, patient did have a fever and significant mental status changes concerning for encephalitis the patient is status post LP completed on 03/03/2023 that was negative. On today's evaluation that is 03/03/2023, the patient is afebrile, the patient is hemodynamically stable not requiring any pressor support she did have NG for feeding and free water and the patient did have elevated sodium 154 vomiting or diarrhea or any other changes were reported by the nursing staff patient cannot provide any history Objective - Vital Signs Vital signs: Vital Signs Temp 97.8 F 03/03/23 08:00 Pulse 68 03/03/23 12:03 Resp 31 H 03/03/23 11:00 BP 117/76 03/03/23 11:00 Pulse Ox 98 03/03/23 11:00 FiO2 Intake & Output 03/02/23 03/03/23 03/03/23 18:59 06:59 18:59 Intake Total 77.526 1379.354 810.414 Output Total 850 1175 510 Balance -772.474 204.354 300.414 Weight 74.843 kg 80.6 kg Intake: IV 75 1325 125 Acyclovir Sodium 500 mg 100 In Sodium Chloride 0.9% 100 ml @ 100 mls/hr IVPB Q12HR [facility] Rx#:[id number] Dextrose 5% in Water 1, 875 125 000 ml @ 125 mls/hr IV . Q8H [facility] Rx#:[id number] Dextrose 5% in Water 1, 75 300 000 ml @ 75 mls/hr IV . [id number] [facility] with Potassium Chloride 40 meq Rx#:[id number] cefTRIAXone 2 gm In 50 Sodium Chloride 0.9% 50 ml @ 100 mls/hr IVPB Q12HR [facility] Rx#:[id number] Intake, IV Titration 2.526 54.354 685.414 Amount Dexmedetomidine/0.9% NaCl 2.526 24.792 25.414 (Pmx) 400 mcg In Empty Bag 1 bag @ 0.2 MCG/KG/HR 3.742 mls/hr IV .Q24H [facility] Rx#:[id number] Dextrose 5% in Water 1, 500 000 ml @ 150 mls/hr IV . Q6H40M [facility] Rx#:[id number] Norepinephrine 4 mg In 29.562 Sodium Chloride 0.9% 250 ml @ 0.03 MCG/KG/MIN 8. 555 mls/hr IV .Q24H [facility] Rx#:[id number] Piperacillin-Tazobactam 3 100 .375 gm In Sodium Chloride 0.9% 100 ml @ 25 mls/hr IVPB Q8H [facility] Rx#: [id number] Potassium Chloride 10 meq 10 In Water For Injection 1 100ml.bag @ 100 mls/hr IVPB Q1HR [facility] Rx#: [id number] cefTRIAXone 2 gm In 50 Sodium Chloride 0.9% 50 ml @ 100 mls/hr IVPB Q12HR PRASNATH Rx#:[id number] Oral 0 Output: Urine 850 1175 510 Other: Voiding Method Indwelling Catheter Indwelling Catheter Indwelling Catheter - Exam GENERAL DESCRIPTION: A middle-age female lying in bed in no distress RESPIRATORY SYSTEM: Unlabored breathing , decreased breath sounds at bases HEART: S1 S2 regular rate and rhythm , ABDOMEN: Soft , no tenderness EXTREMITIES: No edema feet - Labs CBC & Chem 7: 03/03/23 04:30 03/03/23 04:30 Labs: Abnormal Lab Results - Last 24 Hours (Table) 03/02/23 03/02/23 03/02/23 Range/Units 10:49 20:54 20:54 WBC 15.5 H (3.8-10.6) k/uL Neutrophils # (1.3-7.7) k/uL Lymphocytes # (1.0-4.8) k/uL ABG pH 7.27 L (7.35-7.45) ABG pCO2 54 H (35-45) mmHg ABG pO2 70 L (83-108) mmHg ABG Total CO2 26 H (19-24) mmol/L ABG O2 Saturation 93.2 L (94-97) % Sodium (137-145) mmol/L Potassium (3.5-5.1) mmol/L Chloride (98-107) mmol/L Carbon Dioxide (22-30) mmol/L BUN (7-17) mg/dL Creatinine (0.52-1.04) mg/dL Glucose (74-99) mg/dL POC Glucose (mg/dL) 113 H (70-110) mg/dL C-Reactive Protein (<1.0) mg/dL Total Protein (6.3-8.2) g/dL Albumin (3.5-5.0) g/dL Procalcitonin (0.02-0.09) ng/mL CSF Glucose (40-70) mg/dL 03/02/23 03/02/23 03/03/23 Range/Units 21:15 23:35 04:30 WBC (3.8-10.6) k/uL Neutrophils # (1.3-7.7) k/uL Lymphocytes # (1.0-4.8) k/uL ABG pH (7.35-7.45) ABG pCO2 (35-45) mmHg ABG pO2 (83-108) mmHg ABG Total CO2 (19-24) mmol/L ABG O2 Saturation (94-97) % Sodium (137-145) mmol/L Potassium 5.3 H (3.5-5.1) mmol/L Chloride (98-107) mmol/L Carbon Dioxide (22-30) mmol/L BUN (7-17) mg/dL Creatinine (0.52-1.04) mg/dL Glucose (74-99) mg/dL POC Glucose (mg/dL) (70-110) mg/dL C-Reactive Protein (<1.0) mg/dL Total Protein (6.3-8.2) g/dL Albumin (3.5-5.0) g/dL Procalcitonin 15.80 H (0.02-0.09) ng/mL CSF Glucose 77 H (40-70) mg/dL 03/03/23 03/03/23 Range/Units 04:30 04:30 WBC (3.8-10.6) k/uL Neutrophils # 9.2 H (1.3-7.7) k/uL Lymphocytes # 0.7 L (1.0-4.8) k/uL ABG pH (7.35-7.45) ABG pCO2 (35-45) mmHg ABG pO2 (83-108) mmHg ABG Total CO2 (19-24) mmol/L ABG O2 Saturation (94-97) % Sodium 154 H (137-145) mmol/L Potassium 3.4 L (3.5-5.1) mmol/L Chloride 123 H (98-107) mmol/L Carbon Dioxide 21 L (22-30) mmol/L BUN 26 H (7-17) mg/dL Creatinine 1.59 H (0.52-1.04) mg/dL Glucose 147 H (74-99) mg/dL POC Glucose (mg/dL) (70-110) mg/dL C-Reactive Protein 26.0 H (<1.0) mg/dL Total Protein 5.1 L (6.3-8.2) g/dL Albumin 2.6 L (3.5-5.0) g/dL Procalcitonin (0.02-0.09) ng/mL CSF Glucose (40-70) mg/dL Assessment and Plan (1) Pneumonia Current Visit: Yes Status: Acute Code(s): J18.9 - PNEUMONIA, UNSPECIFIED ORGANISM SNOMED Code(s): 990169459 (2) Sepsis Current Visit: Yes Status: Acute Code(s): A41.9 - SEPSIS, UNSPECIFIED ORGANISM SNOMED Code(s): 05897345 Plan: 1patient presented hospital with an episode of unresponsiveness in this patient apparently was noticed to be covered in feces on the floor patient did have a low-grade fever on presentation to the hospital did have elevated white count and significant agitation concerning for possible encephalitis of viral etiology meningitis less likely but not entirely excluded 2-patient did have elevated creatinine high risk of nephrotoxicity from vancomycin 3Patient did have LP within normal protein no white count and a glucose of 77 not indicated above serious infection acyclovir has been discontinued 4-patient antibiotics has been adjusted appropriately to Zosyn to cover for aspiration pneumonia likely etiology Time with Patient: Less than 30
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
[2023-03-03] MEDS ORDERED: HALOPERIDOL LACTATE 5 MG/ML 1 ML VIAL IM PRN (14:50)
[2023-03-03] MEDS ORDERED: haloperidoL 1 MG TAB PO PRN (14:50)
--- NOTE | 2023-03-03 14:53 | CDI ---
Documentation Clarification Form Date: From: Lisa Fletcher Phone: [phone] Admit Date: 03/01/2023 02:27:00 PM Patient Name: Alesia Eldridge Visit Number: [id number] Discharge Date: ATTENTION: The Clinical Documentation Specialists (CDI) and [employer] Coding Staff appreciate your assistance in clarifying documentation. Please respond to the clarification below the line at the bottom and electronically sign. The CDI & [employer] Coding staff will review the response and follow-up if needed. Please note: Queries are made part of the Legal Health Record. If you have any questions, please contact the author of this message via ITS. Dr. Vita Frank Your patient has Oxygen Usage noted in the chart. Based on this information and the findings below, is there an additional diagnosis that is clinically appropriate for this patient? History/Risk Factors: "62 year old female with medical history of Bipolar disorder, hypertension, hyperlipidemia, hypothyroidism, anxiety/depression. Patient is a daily smoker, family denies any known drug use and reports patient does not drink alcohol. Patient is brought in by EMS for altered mental status patient was found covered in feces and unresponsive at home." - Per Medical H&P on 03/01 Tobacco use: current everyday smoker Home oxygen: n/a Clinical Indicators: "Patient is tachypneic and pulling away when attempting to assess" "Chest xray reveals right mid and lower lung perihilar airspace consolidation concerning for pneumonia." - Per Medical H&P on 03/01 Vital signs: 03/01 11:59 - Temp. 99.2, HR 102, RR 40, BP 97/36 03/01 22:30 - Temp. 99.4, HR 68, RR 30, BP 140/80 03/02 09:03 - Temp. 98.2, HR 99, RR 22, BP 118/84 03/02 18:00 - HR 93, RR 22, BP 127/72 03/02 18:30 - HR 86, RR 13, BP 101/62 03/03 00:00 - Temp. 97.8, HR 70, RR 32, BP 96/61 03/03 12:00 - Temp. 97.9, HR 70, RR 19, BP 128/85 Pulse oximetry: 03/01 11:59 - 90% on Room Air 6/5 22:30 - 91% on Room Air 03/02 09:03 - 91% on Room Air 03/02 18:00 - 93% on 2L NC 03/02 18:30 - 91% on 4L NC 03/03 00:00 - 95% on 2L NC 03/03 12:00 - 98% on 2L NC Lung/Breathing assessment: "PULMONARY: Chest is clear to auscultation, no wheezing or crackles. Diminished and patient does have some scattered wheezing." - Per Medical H&P on 03/01 Treatment: "Continue on antibiotic coverage with IV ceftriaxone and PO azithromycin" - Per Medical H&P on 03/01 Per MAR: Albuterol/Ipratropium 3ml inhalation QID PRN given 03/01 x1, 03/02 x4, 03/03 x2 Is there an additional diagnosis that is clinically appropriate for this patient? [ y ] Acute Hypoxic Respiratory Failure (pO2 <60 mm Hg or SpO2 <91% on room air) [ ] Acute Respiratory Distress [ ] Acute Respiratory Insufficiency [ ] Other Diagnosis, please specify [ ] Unable to determine MTDD
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
--- NOTE | 2023-03-03 22:14 | EEG ---
ELECTROENCEPHALOGRAM REPORT CLINICAL HISTORY: This is a 62-year-old woman with altered mental status. The video EEG is obtained to evaluate for seizure epileptiform activity. RELEVANT MEDICATIONS: 1. IV Vimpat. 2. Precedex. EEG TYPE: A routine 21-channel EEG is performed with video using the 10/20 electrode placement system. DESCRIPTION: Wakefulness is only obtained. The background consists of [id number] voltage of 5 hertz activity. At times, the background consists of diffuse nonrhythmic delta activity. There was no physiological stage 2 sleep architecture. There is no focal slowing. At times, the background consists of very rare diffuse suppression lasting about 1 to 2 seconds at most. Interictal and ictal, there are rare bilateral frontal sharp and slow waves and a few stemming from the right more than the left. There is no seizure noted during the study. ACTIVATION PROCEDURE: Photic stimulation and hyperventilation are not performed. CLINICAL INTERPRETATION: This is an abnormal routine EEG. The background slowing is suggestive of moderate-to- severe encephalopathy. There are rare bilateral frontal discharges that can increase risk for seizure. Otherwise, there is no seizure or focal slowing seen during the study. In comparison to the quantity of discharges, there seem to be decreased frequency during the study compared to yesterday's study. Clinical correlation is recommended. MMODL / IJN: [id number] /
[2023-03-04] MEDS: NOREPINEPHRINE 4 MG in SODIUM CHLORIDE 0.9% 250 ML IV SCH (00:18)
[2023-03-04] MEDS ORDERED: POTASSIUM BICARBONATE/CIT AC 20 MEQ TABLET.EFF NG-TUBE SCH (02:00)
[2023-03-04] MEDS: PIPERACILLIN-TAZOBACTAM 3.375 GM in SODIUM CHLORIDE 0.9% 100 ML IVPB SCH ×3 (02:04→20:00)
[2023-03-04] MEDS: DEXTROSE 5% IN WATER 1,000 ML IV SCH ×2 (04:05→15:40)
[2023-03-04 04:42] LABS: HCT 43.2 % (34.0-46.0); HGB 12.9 gm/dL (11.4-16.0); Hypochromasia Marked; MCH 30.7 pg (25.0-35.0); MCHC 29.9 g/dL (31.0-37.0); MCV 102.8 fL (80.0-100.0); Macrocytosis Slight; Mean Platelet Volume 9.4; Platelet Count 142 k/uL (150-450); RBC 4.21 m/uL (3.80-5.40); RDW 14.1 % (11.5-15.5); WBC 6.8 k/uL (3.8-10.6)
[2023-03-04 04:58] LABS: African American GFR (CKD) 49 (>60 ml/min/1.73 sqM); Anion Gap 9 mmol/L; Blood Urea Nitrogen 20 mg/dL (7-17); Calcium 9.1 mg/dL (8.4-10.2); Carbon Dioxide 17 mmol/L (22-30); Chloride 122 mmol/L (98-107); Glucose 144 mg/dL (74-99); Non-African American GFR(CKD) 43 (>60 ml/min/1.73 sqM); Sodium 148 mmol/L (137-145)
[2023-03-04 05:05] LABS: Band Neutrophils % 19 %; Eosinophils # (M) 0.27 k/uL (0-0.7); Lymphocytes # (M) 0.95 k/uL (1.0-4.8); Monocytes # (M) 0.14 k/uL (0-1.0); Neutrophils % (M) 61 %; Nucleated Red Blood Cells 0 /100 WBC (0-0); Total Cells Counted 200
[2023-03-04 05:57] LABS: Potassium 4.1 mmol/L (3.5-5.1)
[2023-03-04] MEDS: LEVOTHYROXINE 125 MCG TAB PO SCH (06:35)
[2023-03-04] MEDS: OXYBUTYNIN XL 5 MG TAB.ER.24 PO SCH (07:27)
--- NOTE | 2023-03-04 07:27 | XR ---
EXAMINATION TYPE: XR chest 1V portable DATE OF EXAM: 03/04/2023 Comparison: 03/03/2023 Clinical History: 62-year-old female pneumonia Findings: NG tube is present, satisfactory. Heart upper limits of normal in size. Patchy airspace opacity right mid and lower lung is similar. No pleural effusion. Impression: Similar right lower lung pneumonia.
[2023-03-04] MEDS: MULTIVITAMINS, THERA 1 EACH TAB PO SCH (08:24)
[2023-03-04] MEDS: LITHIUM CARBONATE 300 MG PO SCH ×2 (08:24→21:00)
[2023-03-04] MEDS: ATORVASTATIN 10 MG TAB PO SCH (08:25)
[2023-03-04] MEDS: CYANOCOBALAMIN 500 MCG TAB PO SCH (08:25)
[2023-03-04] MEDS: PANTOPRAZOLE 40 MG/10 ML VIAL IVP SCH ×2 (08:25→21:03)
[2023-03-04] MEDS: Lacosamide IV (ages 17+ yrs) 200 MG/20 ML ML IVP SCH ×2 (08:25→21:03)
[2023-03-04] MEDS: IPRATROPIUM-ALBUTEROL 3 ML NEB INHALATION SCH ×4 (08:32→20:27)
[2023-03-04] MEDS ORDERED: FUROSEMIDE 10 MG/ML 4 ML VIAL IV STA (09:10)
[2023-03-04] MEDS ORDERED: FUROSEMIDE 10 MG/ML 2 ML VIAL IV STA (09:10)
[2023-03-04] MEDS ORDERED: DEXTROSE 5%-0.45% NACL 1,000 ML IV SCH (09:15)
--- NOTE | 2023-03-04 10:01 | P.CRDCN ---
History of Present Illness History of present illness: HISTORY OF PRESENTING ILLNESS With history of hyperlipidemia, hypothyroidism, anxiety, depression, hypertension, tobacco abuse, marijuana use, bipolar disorder. Patient currently altered mental status and history is supplied by chart and staff. Patient was found unresponsive 03/01/2023 with feces around her. Chest x-ray showed infiltrate concerning for aspiration and was placed on antibiotics. CT brain showed no acute process. Patient is found to have acute kidney injury with creatinine 1.76 and increased sodium in the 150 range. She has been on free water flushes and D5W with mild improvement in sodium as well as improvement in creatinine. She briefly had hypotension and was transferred to ICU and placed on norepinephrine briefly however since that time has had normal blood pressure. Neurology and nephro are following. She remains unresponsive and on Precedex and if Precedex is weaned, she will become more agitated. No prior history of any heart failure. Echo showed cardiomyopathy with EF 20-25%. No significant respiratory distress however has been started on Lasix and maintaining good urine output. No significant lower extremity edema. She is receiving tube f eeds with 40 cc per hour. EKG shows sinus rhythm, normal axis, nonspecific minimal ST depressions in the lateral leads. REVIEW OF SYSTEMS At the time of my exam: Unable to obtain secondary to unresponsive PHYSICAL EXAMINATION Vital signs reviewed. CONSTITUTIONAL: No apparent distress, nonresponsive. HEENT: Head is normocephalic. Pupils are equal, round. Sclerae anicteric. Mucous membranes of the mouth are moist. No JVD. No carotid bruit. CHEST EXAMINATION: Lungs are clear to auscultation. No chest wall tenderness is noted on palpation or with deep breathing. HEART EXAMINATION: Regular rate and rhythm. S1, S2 heard. No murmurs, gallops or rub. ABDOMEN: Soft, nontender. Positive bowel sounds. EXTREMITIES: 2+ peripheral pulses, no lower extremity edema and no calf tenderness. NEUROLOGIC EXAMINATION: Patient is nonresponsive ASSESSMENT 1. Altered mental status with patient being found down and altered in her feces, Neuro workup in progress 2. Acute kidney injury, improving with IV fluids 3. Hypernatremia mildly improving with free water flushes and D5W 4. Chronic systolic heart failure 5. New-onset cardiomyopathy EF 20-25% unclear ischemic versus nonischemic, possible Takotsubo's 6. Hypertension 7. Hyperlipidemia 8. Psychiatric history PLAN New-onset cardiomyopathy of unclear etiology. Patient not have any significant ischemic symptoms apparently and troponin normal. Currently she has been improving with IV fluids and defer fluid management to nephrology with si gnificant hypernatremia. We will add low-dose metoprolol monitor response for heart failure regimen. Prognosis guarded. Past Medical History Past Medical History: Hyperlipidemia, Hypertension, Thyroid Disorder Additional Past Medical History / Comment(s): Overactive bladder, constipation, hypothyroid History of Any Multi-Drug Resistant Organisms: None Reported Past Surgical History: Breast Surgery, Section, Cholecystectomy, Tubal Ligation Additional Past Surgical History / Comment(s): L breast benign lumpectomy Past Anesthesia/Blood Transfusion Reactions: No Reported Reaction Past Psychological History: Anxiety, Bipolar, Depression Additional Psychological History / Comment(s): Pt lives alone and lives independently. Smoking Status: Current every day smoker Past Alcohol Use History: None Reported Additional Past Alcohol Use History / Comment(s): Pt started smoking in 1971. Past Drug Use History: Marijuana Additional Drug Use History / Comment(s): Pt snorts caffeine pills. She uses marijuana recreationally - Past Family History Father Family Medical History: No Reported History Additional Family Medical History / Comment(s): Father was healthy Sister(s) Family Medical History: No Reported History Mother Family Medical History: Cancer Additional Family Medical History / Comment(s): Mother had breast cancer. Medications and Allergies Home Medications Medication Instructions Recorded Confirmed Type Atorvastatin [Lipitor] 10 mg PO DAILY 11/05/14 03/01/23 History Multivitamins, Thera [Multivitamin 1 tab PO DAILY 07/11/19 03/01/23 History (formulary)] Oxybutynin Xl [Ditropan XL] 5 mg PO DAILY 07/11/19 03/01/23 History Propranolol HCl [Propranolol HCl 60 mg PO DAILY 07/11/19 03/01/23 History ER] Levothyroxine Sodium [Synthroid] 125 mcg PO DAILY 09/12/20 03/01/23 History Pantoprazole [Protonix] 40 mg PO SUSAN-BRKFST #30 tablet. 09/14/20 03/01/23 Rx ARIPiprazole [Abilify Maintena] 400 mg IM Q28D 03/01/23 03/01/23 History ARIPiprazole [Abilify] 15 mg PO DAILY 03/01/23 03/01/23 History Escitalopram [Lexapro] 10 mg PO DAILY 03/01/23 03/01/23 History LORazepam [Ativan] 0.5 mg PO BID PRN 03/01/23 03/01/23 History [place] Carbonate [Lithobid] 300 mg PO BID 03/01/23 03/01/23 History Trihexyphenidyl HCl 5 mg PO BID 03/01/23 03/01/23 History Allergies Allergy/AdvReac Type Severity Reaction Status Date / Time No Known Allergies Allergy Verified 03/01/23 12:21 Physical Exam Vitals: Vital Signs Temp Pulse Resp BP Pulse Ox 03/04/23 08:44 58 L 03/04/23 08:32 60 99 03/04/23 07:00 56 L 26 H 119/74 99 03/04/23 06:00 56 L 34 H 106/65 99 03/04/23 05:00 61 30 H 115/77 98 03/04/23 04:00 57 L 30 H 102/68 99 03/04/23 03:00 63 33 H 108/68 98 03/04/23 02:00 59 L 32 H 117/73 97 03/04/23 01:00 60 35 H 103/65 97 03/04/23 00:00 97.7 F 58 L 31 H 105/70 98 03/03/23 23:00 58 L 27 H 100/59 98 03/03/23 22:00 61 27 H 110/72 98 03/03/23 21:00 60 29 H 115/62 97 03/03/23 20:10 53 L 03/03/23 20:00 97.6 F 50 L 33 H 124/74 100 03/03/23 19:56 52 L 03/03/23 19:00 54 L 34 H 115/70 99 03/03/23 18:30 53 L 31 H 116/76 99 03/03/23 18:00 54 L 33 H 112/70 99 03/03/23 17:30 57 L 32 H 112/75 98 03/03/23 17:00 57 L 34 H 109/59 97 03/03/23 16:30 60 34 H 118/69 96 03/03/23 16:00 98.3 F 59 L 31 H 112/75 98 03/03/23 15:31 60 03/03/23 15:30 58 L 33 H 106/72 99 03/03/23 15:20 64 03/03/23 15:00 57 L 31 H 103/70 97 03/03/23 14:30 58 L 29 H 117/71 97 03/03/23 14:00 56 L 34 H 99/57 97 03/03/23 13:30 63 31 H 112/67 95 03/03/23 13:00 66 33 H 110/63 03/03/23 12:30 60 26 H 127/70 95 03/03/23 12:03 68 03/03/23 12:00 97.9 F 70 19 128/85 98 03/03/23 11:51 58 L 03/03/23 11:30 70 18 107/68 95 03/03/23 11:00 56 L 31 H 117/76 98 03/03/23 10:30 71 24 101/66 96 03/03/23 10:00 65 30 H 99/74 96 Intake and Output 03/03/23 03/04/23 03/04/23 22:59 06:59 14:59 Intake Total 4130.883 8915.064 193 Output Total 745 1475 150 Balance 1228.938 612.064 43 Intake: IV 550 1300 150 Dextrose 5% in Water 1, 450 1200 150 000 ml @ 150 mls/hr IV . Q6H40M [facility] Rx#:[id number] Piperacillin-Tazobactam 3 100 100 .375 gm In Sodium Chloride 0.9% 100 ml @ 25 mls/hr IVPB Q8H [facility] Rx#: [id number] Intake, IV Titration 823.938 43.064 Amount Dexmedetomidine/0.9% NaCl 73.938 43.064 (Pmx) 400 mcg In Empty Bag 1 bag @ 0.2 MCG/KG/HR 3.742 mls/hr IV .Q24H [facility] Rx#:[id number] Dextrose 5% in Water 1, 750 000 ml @ 150 mls/hr IV . Q6H40M [facility] Rx#:[id number] Oral 0 Tube Feeding 200 344 43 Other 400 400 Output: Urine 745 1475 150 Other: Voiding Method Indwelling Catheter Indwelling Catheter Weight 81.4 kg 81.4 kg Results 03/04/23 04:30 03/04/23 04:30 CBC 03/04/23 Range/Units 04:30 WBC 6.8 (3.8-10.6) k/uL RBC 4.21 (3.80-5.40) m/uL Hgb 12.9 (11.4-16.0) gm/dL Hct 43.2 (34.0-46.0) % Plt Count 142 L (150-450) k/uL Comprehensive Metabolic Panel 03/03/23 03/04/23 03/04/23 Range/Units 17:31 00:32 04:30 Sodium 150 H 148 H (137-145) mmol/L Potassium 3.6 4.1 (3.5-5.1) mmol/L Chloride 122 H (98-107) mmol/L Carbon Dioxide 17 L (22-30) mmol/L BUN 20 H (7-17) mg/dL Creatinine 1.33 H (0.52-1.04) mg/dL Glucose 144 H (74-99) mg/dL Calcium 9.1 (8.4-10.2) mg/dL Current Medications Generic Name Dose Route Start Last Admin Trade Name Freq PRN Reason Stop Dose Admin Albuterol/Ipratropium 3 ml 03/02/23 08:00 03/04/23 08:32 Ipratropium-Albuterol 3 Ml Neb INHALATION 3 ml RT-QID [facility] Administration Albuterol/Ipratropium 3 ml 03/01/23 22:25 03/01/23 23:58 Ipratropium-Albuterol 3 Ml Neb INHALATION 3 ml RT-QID PRN Administration Shortness Of Breath Or Wheezing Atorvastatin Calcium 10 mg 03/02/23 09:00 03/04/23 08:25 Atorvastatin 10 Mg Tab PO 10 mg DAILY [facility] Administration Cyanocobalamin 1,000 mcg 03/04/23 09:00 03/04/23 08:25 Cyanocobalamin 500 Mcg Tab PO 1,000 mcg DAILY [facility] Administration Haloperidol 3 mg 03/03/23 14:50 Haloperidol 1 Mg Tab PO Q6HR PRN Agitation Haloperidol Lactate 3 mg 03/03/23 14:50 Haloperidol Lactate 5 Mg/Ml 1 Ml Vial IM Q6HR PRN Agitation or Acute Psychosis Dexmedetomidine HCl 400 mcg/ 100 mls @ 3.742 mls/hr 03/02/23 17:45 03/04/23 05:32 IV Solution IV 0.4 mcg/kg/hr .Q24H [facility] 7.484 mls/hr Titration Protocol 0.2 MCG/KG/HR Norepinephrine Bitartrate 4 mg 254 mls @ 8.555 mls/hr 03/02/23 23:45 03/04/23 00:18 / Sodium Chloride IV Not Given .Q24H [facility] Protocol 0.03 MCG/KG/MIN Piperacillin Sod/Tazobactam 100 mls @ 25 mls/hr 03/03/23 11:00 03/04/23 02:04 Sod 3.375 gm/ Sodium Chloride IVPB 25 mls/hr Q8H [facility] Administration Protocol Dextrose/Sodium Chloride 1,000 mls @ 20 mls/hr 03/04/23 09:15 03/04/23 09:52 Dextrose 5%-1/2ns Iv Soln IV 20 mls/hr .Q24H [facility] Administration Lacosamide 50 mg 03/03/23 21:00 03/04/23 08:25 Lacosamide Iv (Ages 17+ Yrs) 200 Mg/20 Ml Ml IVP 50 mg BID [facility] Administration Levothyroxine Sodium 125 mcg 03/02/23 06:30 03/04/23 06:35 Levothyroxine 125 Mcg Tab PO 125 mcg DAILY@0630 [facility] Administration Miscellaneous Information 1 each 03/01/23 14:26 Pneumonia Protocol Utilized 1 Each Misc PO ONCE PRN Per Protocol Miscellaneous Information 1 each 03/03/23 06:03 Potassium Replacement Protocol 1 Each Misc MISCELLANE DAILY PRN Per Protocol Protocol Multivitamins 1 each 03/02/23 09:00 03/04/23 08:24 Multivitamins, Thera 1 Each Tab PO 1 each DAILY [facility] Administration Put-In-[place] Carbonate [ 300 mg 03/01/23 21:00 03/04/23 08:24 Lithobid] 300 Mg PO Not Given Tablet BID [facility] Oxybutynin Chloride 5 mg 03/02/23 09:00 03/04/23 07:27 Oxybutynin Xl 5 Mg Tab.Er.24 PO Not Given DAILY [facility] Pantoprazole Sodium 40 mg 03/02/23 21:00 03/04/23 08:25 Pantoprazole 40 Mg/10 Ml Vial IVP 40 mg BID [facility] Administration Intake and Output 06/04/1803/04/23 03/04/23 22:59 06:59 14:59 Intake Total 3476.018 0746.064 193 Output Total 745 1475 150 Balance 1228.938 612.064 43 Intake: IV 550 1300 150 Dextrose 5% in Water 1, 450 1200 150 000 ml @ 150 mls/hr IV . Q6H40M [facility] Rx#:[id number] Piperacillin-Tazobactam 3 100 100 .375 gm In Sodium Chloride 0.9% 100 ml @ 25 mls/hr IVPB Q8H [facility] Rx#: [id number] Intake, IV Titration 823.938 43.064 Amount Dexmedetomidine/0.9% NaCl 73.938 43.064 (Pmx) 400 mcg In Empty Bag 1 bag @ 0.2 MCG/KG/HR 3.742 mls/hr IV .Q24H [facility] Rx#:[id number] Dextrose 5% in Water 1, 750 000 ml @ 150 mls/hr IV . Q6H40M [facility] Rx#:[id number] Oral 0 Tube Feeding 200 344 43 Other 400 400 Output: Urine 745 1475 150 Other: Voiding Method Indwelling Catheter Indwelling Catheter Weight 81.4 kg 81.4 kg Patient Weight 03/05/23 06:59 Weight 81.4 kg 03/04/23 04:30 03/04/23 04:30
--- NOTE | 2023-03-04 10:14 | P.PN ---
Subjective Patient is a 62-year-old female seen for follow-up for severe hyponatremia and acute kidney injury. Patient remains obtunded and was transferred to the ICU yesterday. Patient has been started on Precedex. Patient was started on free water down the feeding tube yesterday along with D5W. Serum sodium this morning is 148 with creatinine down to 1.3. Patient remains lethargic but mentation appears to be better than yesterday. Objective - Vital Signs Vital signs: Vital Signs Temp 97.7 F 03/04/23 00:00 Pulse 58 L 03/04/23 08:44 Resp 26 H 03/04/23 07:00 BP 119/74 03/04/23 07:00 Pulse Ox 99 03/04/23 08:32 FiO2 Intake & Output 03/03/23 03/04/23 03/04/23 18:59 06:59 18:59 Intake Total 2235.860 3137.811 193 Output Total 1180 1950 150 Balance 9790.829 6719.811 43 Weight 80.6 kg 81.4 kg Intake: IV 125 1850 150 Dextrose 5% in Water 1, 125 000 ml @ 125 mls/hr IV . Q8H [facility] Rx#:[id number] Dextrose 5% in Water 1, 1650 150 000 ml @ 150 mls/hr IV . Q6H40M [facility] Rx#:[id number] Piperacillin-Tazobactam 3 200 .375 gm In Sodium Chloride 0.9% 100 ml @ 25 mls/hr IVPB Q8H [facility] Rx#: [id number] Intake, IV Titration 1810.860 223.811 Amount Dexmedetomidine/0.9% NaCl 80.860 73.811 (Pmx) 400 mcg In Empty Bag 1 bag @ 0.2 MCG/KG/HR 3.742 mls/hr IV .Q24H [facility] Rx#:[id number] Dextrose 5% in Water 1, 1550 150 000 ml @ 150 mls/hr IV . Q6H40M [facility] Rx#:[id number] Piperacillin-Tazobactam 3 100 .375 gm In Sodium Chloride 0.9% 100 ml @ 25 mls/hr IVPB Q8H [facility] Rx#: [id number] Potassium Chloride 10 meq 30 In Water For Injection 1 100ml.bag @ 100 mls/hr IVPB Q1HR [facility] Rx#: [id number] 2 gm In 50 Sodium Chloride 0.9% 50 ml @ 100 mls/hr IVPB Q12HR [facility] Rx#:[id number] Oral 0 0 Tube Feeding 100 464 43 Other 200 600 Output: Urine 1180 1950 150 Other: Voiding Method Indwelling Catheter Indwelling Catheter - Exam Patient remains obtunded, opens eyes on verbal stimuli, slightly improved from yesterday Examination of the heart S1 and S2 Examination of the lungs bilateral breath sounds are heard Abdomen is soft nontender Examination of lower extremities shows no significant edema - Labs CBC & Chem 7: 03/04/23 04:30 03/04/23 04:30 Labs: Abnormal Lab Results - Last 24 Hours (Table) 03/03/23 03/03/23 03/04/23 Range/Units 04:30 17:31 04:30 MCV 102.8 H (80.0-100.0) fL MCHC 29.9 L (31.0-37.0) g/dL Plt Count 142 L (150-450) k/uL Lymphocytes # (Manual) 0.95 L (1.0-4.8) k/uL Sodium 150 H (137-145) mmol/L Chloride (98-107) mmol/L Carbon Dioxide (22-30) mmol/L BUN (7-17) mg/dL Creatinine (0.52-1.04) mg/dL Glucose (74-99) mg/dL Procalcitonin 15.80 H (0.02-0.09) ng/mL 03/04/23 Range/Units 04:30 MCV (80.0-100.0) fL MCHC (31.0-37.0) g/dL Plt Count (150-450) k/uL Lymphocytes # (Manual) (1.0-4.8) k/uL Sodium 148 H (137-145) mmol/L Chloride 122 H (98-107) mmol/L Carbon Dioxide 17 L (22-30) mmol/L BUN 20 H (7-17) mg/dL Creatinine 1.33 H (0.52-1.04) mg/dL Glucose 144 H (74-99) mg/dL Procalcitonin (0.02-0.09) ng/mL Microbiology - Last 24 Hours (Table) 03/01/23 14:53 Blood Culture - Preliminary Blood 03/01/23 14:53 Blood Culture - Preliminary Blood Assessment and Plan Assessment: 1. Acute kidney injury, ischemic ATN associated with hypotension, currently nonoliguric and improving. UA shows trace protein no blood or cells 2. Hypernatremia associated with free water deficit. Maintained on D5W and free water down the feeding tube 3. Mental status changes associated with electrolyte imbalance and sepsis, possibly related to medications. Drug screen is negative except for benzodiazepines which is noted on her med list. 4. Lactic acidosis associated with hypotension 5. Hypokalemia associated with decreased oral intake 6. Right-sided community-acquired pneumonia with sepsis 7. Non-gap metabolic acidosis associated with acute kidney injury, renal function is improving. Plan: Decrease D5W Continue free water on the feeding tube Repeat sodium later this evening.
[2023-03-04] MEDS ORDERED: METOPROLOL SUCCINATE (ER) 25 MG TAB.ER.24H PO SCH (10:15)
[2023-03-04 11:38] LABS: Glucose,Whole Blood 130 mg/dL (70-110)
--- NOTE | 2023-03-04 12:06 | P.PN ---
Subjective Progress Note Date: 03/04/23 Principal diagnosis: Altered mental status, acute aspiration pneumonia and metabolic encephalopathy This is a 62-year-old female patient with a known history of hyperlipidemia, hy pothyroidism, anxiety/depression, hypertension, chronic and ongoing tobacco dependence, marijuana use, bipolar disorder and she was brought into the emergency room yesterday 03/01/2023 with altered mental status and unresponsiveness with intermittent episodes of restlessness. She apparently was covered in dried feces. Chest x-ray revealed right mid and lower lung. Hilar airspace consolidation concerning for pneumonia. Computed tomography scan of the brain revealed no gross evidence of acute intracranial process. White count 15.5. Hemodynamically 0.8. Platelets 166. Sodium 151. Potassium 3.3. Bicarb 22. BUN 37. Creatinine 1.76. Glucose 119. Lactic acid 2.1. AST 47. ALT 25. Urine drug screen positive for benzodiazepines. Influenza screen negative. RSV screen negative. COVID-19 screen negative. We're consulted today as the patient had an ongoing issues with restlessness requiring 7 mg of Ativan in the past hour and a half and requiring transfer to the intensive care unit. She is seen currently on the regular medical floor. She is arousable but drifts off easily. She is afebrile. She is maintaining O2 saturation 90s on room air. She's hemodynamically stable. She had been seen by neurology who is prescribing Ativan, Vimpat and Depakote to rule out seizure disorder. The plan is for a lumbar puncture and an MRI of the brain once the patient is more calm and cooperative. She will be transferred to the intensive care unit. Possible need for Precedex. Patient was reevaluated today on 03/03/2023, I saw this patient yesterday on consultation, and I recommended transfer to the ICU. Patient apparently had an acute onset of altered mental status, and she was extremely agitated on the floor, requiring significant amount of sedation. Transfer the patient to the ICU and placed on Precedex. Remains on Precedex at 0.2. Remains on D5W at 1 25 mL per hour. Patient had a lumbar puncture yesterday which is so far nondiagnostic. Patient is off acyclovir and off ceftriaxone, I will recommend Zosyn for possible potential aspiration pneumonia. We'll address her hypernatremia with giving her more free water. Patient obviously presented with significant free water deficit and dehydration. She is now on nasal cannula at 2 L, doesn't seem to be in respiratory distress, but she is intermittently agitated, remains encephalopathic, seen by neurology, CT of the brain is nondiagnostic spinal fluid is nondiagnostic. Neurology is recommending MRI. In the meantime I will address her metabolic derangements, and continue to monitor in the ICU WBC count is 10.4 hemoglobin is 12.9. Sodium is 154 today chloride is 123 BUN is down to 26 and her creatinine is 1.59, improving to compared to creatinine 2.46 on 03/01. Pro-calcitonin level is elevated at 15.8. Patient does have a pneumonia involving mostly the right side, and I strongly suspect aspiration pneumonia. Spinal fluid protein is 50 and glucose is 77. Chest x- ray today shows nasogastric tube in the distal stomach, and she has a patchy bibasilar airspace opacities again mostly consistent with aspiration pneumonia. Ejection fraction on this patient is 20-25% at best. I'll see the patient has severe cardiomyopathy, we will consult cardiology to evaluate. Patient was reevaluated today on 03/04/03, remains in the ICU on 2 L nasal cannula, her sodium is correcting nicely down to 148. Remains on D5W at 1 50 mL/h, her IV fluid will be changed to D5 45 at KVO, and she is still receiving free water via nasogastric tube. Patient is developing mild interstitial edema and possibly fluid overload, and I'm recommending Lasix 40 mg IV push. Patient is known to have history of LV dysfunction, ejection fraction of 20-25%. Cardiology is considering the possibility of takustubo syndrome. Patient remains very confused, she has been followed by neurology and multiple other consultants. Patient does have some psychiatric history. He has bipolar disorder. And possible schizoaffective disorder. At any rate patient does not seem to be in any distress, her spinal fluid was nondiagnostic. Except for a slightly elevated sodium of 148, her creatinine is coming down to 1.33 from 2.46 on admission. Bicarb remains a bit low at 17. Pro-calcitonin level elevated at 15.8, I believe it is mostly secondary to her right sided aspiration pneumonia remains on antibiotics empirically Objective - Vital Signs Vital signs: Vital Signs Temp 98.8 F 03/04/23 08:00 Pulse 60 03/04/23 11:30 Resp 26 H 03/04/23 11:00 BP 110/66 03/04/23 11:00 Pulse Ox 96 03/04/23 09:00 FiO2 Intake & Output 03/03/23 03/04/23 03/04/23 18:59 06:59 18:59 Intake Total 2235.860 3137.811 1030.3 Output Total 1180 1950 2450 Balance 2501.795 2878.811 -1419.7 Weight 80.6 kg 81.4 kg Intake: IV 125 1850 150 Dextrose 5% in Water 1, 125 000 ml @ 125 mls/hr IV . Q8H [facility] Rx#:[id number] Dextrose 5% in Water 1, 1650 150 000 ml @ 150 mls/hr IV . Q6H40M [facility] Rx#:[id number] Piperacillin-Tazobactam 3 200 .375 gm In Sodium Chloride 0.9% 100 ml @ 25 mls/hr IVPB Q8H [facility] Rx#: [id number] Intake, IV Titration 1810.860 223.811 465.3 Amount Dexmedetomidine/0.9% NaCl 80.860 73.811 35.3 (Pmx) 400 mcg In Empty Bag 1 bag @ 0.2 MCG/KG/HR 3.742 mls/hr IV .Q24H [facility] Rx#:[id number] Dextrose 5% in Water 1, 1550 150 300 000 ml @ 150 mls/hr IV . Q6H40M [facility] Rx#:[id number] Dextrose 5%-0.45% NaCl 1, 30 000 ml @ 20 mls/hr IV . Q24H [facility] Rx#:[id number] Piperacillin-Tazobactam 3 100 100 .375 gm In Sodium Chloride 0.9% 100 ml @ 25 mls/hr IVPB Q8H [facility] Rx#: [id number] Potassium Chloride 10 meq 30 In Water For Injection 1 100ml.bag @ 100 mls/hr IVPB Q1HR [facility] Rx#: [id number] cefTRIAXone 2 gm In 50 Sodium Chloride 0.9% 50 ml @ 100 mls/hr IVPB Q12HR [facility] Rx#:[id number] Oral 0 0 0 Tube Feeding 100 464 215 Other 200 600 200 Output: Urine 1180 1950 2450 Other: Voiding Method Indwelling Catheter Indwelling Catheter - Exam GENERAL EXAM: Patient is sedated, on Precedex, does not seem to be in distress, however intermittently opens her eyes no other responses, does not verbalize. HEAD: Normocephalic. EYES: Normal reaction of pupils, equal size. NOSE: Clear with pink turbinates. THROAT: No erythema or exudates. NECK: No masses, no JVD. CHEST: No chest wall deformity. LUNGS: Equal air entry with no crackles, wheeze, rhonchi or dullness. CVS: S1 and S2 normal with no audible murmur, regular rhythm. ABDOMEN: No hepatosplenomegaly, normal bowel sounds, no guarding or rigidity. SKIN: No rashes CENTRAL NERVOUS SYSTEM: On Precedex, encephalopathic, calm her today compared to yesterday, however she is on Precedex at 0.4 mcg/kg/h EXTREMITIES: No clubbing edema or cyanosis. - Labs CBC & Chem 7: 03/04/23 04:30 03/04/23 04:30 Labs: Abnormal Lab Results - Last 24 Hours (Table) 03/03/23 03/04/23 03/04/23 Range/Units 17:31 04:30 04:30 MCV 102.8 H (80.0-100.0) fL MCHC 29.9 L (31.0-37.0) g/dL Plt Count 142 L (150-450) k/uL Lymphocytes # (Manual) 0.95 L (1.0-4.8) k/uL Sodium 150 H 148 H (137-145) mmol/L Chloride 122 H (98-107) mmol/L Carbon Dioxide 17 L (22-30) mmol/L BUN 20 H (7-17) mg/dL Creatinine 1.33 H (0.52-1.04) mg/dL Glucose 144 H (74-99) mg/dL POC Glucose (mg/dL) (70-110) mg/dL 03/04/23 Range/Units 11:37 MCV (80.0-100.0) fL MCHC (31.0-37.0) g/dL Plt Count (150-450) k/uL Lymphocytes # (Manual) (1.0-4.8) k/uL Sodium (137-145) mmol/L Chloride (98-107) mmol/L Carbon Dioxide (22-30) mmol/L BUN (7-17) mg/dL Creatinine (0.52-1.04) mg/dL Glucose (74-99) mg/dL POC Glucose (mg/dL) 130 H (70-110) mg/dL Microbiology - Last 24 Hours (Table) 03/02/23 21:15 CSF Culture - Preliminary Cerebral Spinal Fluid 03/01/23 14:53 Blood Culture - Preliminary Blood 03/01/23 14:53 Blood Culture - Preliminary Blood Assessment and Plan Assessment: Impression: Aspiration pneumonia Altered mental status of unclear etiology, possibly underlying sepsis, possible aspiration pneumonia, metabolic encephalopathy. Leukocytosis, secondary to pneumonia./Aspiration pneumonia is strongly suspected. Hypernatremia, secondary to dehydration and free water deficit. Improving with free water given. Acute kidney injury, I suspect that this is mostly a picture of dehydration improving with hydration. History of bipolar disorder Cardiomyopathy and LV dysfunction. History of anxiety/depression History of hypertension Hypothyroidism Hyperlipidemia Plan: Continue to monitor the patient in the ICU Change antibiotics to Zosyn, for presumptive aspiration pneumonia Change IV fluid to D5 45 continue free water replacement using nasogastric tube Continue Precedex. Titrate accordingly Cardiology to see for her severe cardiomyopathy and LV dysfunction Prognosis remains guarded. We'll continue to follow We'll continue to follow Time with Patient: Less than 30
[2023-03-04] MEDS: DEXMEDETOMIDINE/0.9% NACL(PMX) 400 MCG in EMPTY BAG 1 BAG IV SCH ×2 (13:43→22:05)
[2023-03-04 14:14] VITALS: BMI 35.0
[2023-03-04] MEDS: HYDROmorphone 0.5 MG/0.5 ML SYRINGE IVP PRN (15:10)
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
[2023-03-04] MEDS: METOPROLOL TARTRATE 12.5 MG TAB PO SCH (21:03)
--- NOTE | 2023-03-04 21:21 | P.PN ---
Subjective Progress Note Date: 03/04/23 Patient was initially seen by Dr. Manjit Yan. Please refer to his note for details. Patient is a 62-year-old female with altered mental status. Patient underwent lumbar puncture which was negative. Patient had EEG performed twice, which was negative for seizure. However she had bilateral discharges and was on Vimpat 100 mg twice a day. Likely patient has pneumonia. Patient has tremors that is chronic and persistent her from psych medications. MRI brain pending. SOME OF THE WORK-UP DURING THIS HOSPITAL VISIT CONSISTED OF: White blood cell is 21.4 thousand predominant neutrophilic--resolved Sodium is 150--154, creatnine 2.46--1.59, AST and ALT mildly elevated. Ammonia <9. TSH: 0.656 Vitamin B12: 286 (low normal) Folate: 15.3 Urine drug screen: Positive for benzo. Otherwise negative. Serum alcohol <10 [place] is 1 which is therapeutic. SARS-CoV-2 PCR, influenza A/B and RSV are negative. CT head is reported as no gross evidence of an acute intracranial process. I personally reviewed CT and agree with report. Chest x-ray was reported as mild and lower lung perihilar space consolidation concerning for pneumonia. CSF study: clear, colorless, 0 nucleated cell, 77 glucose, 50 protein. EEG: As abnormal. Tobacco slowing suggestive of moderate encephalopathy. There are epileptiform discharges over bilateral frontal region but stemming from the left frontal. There is no seizures noted during the study. The patient tremor was seen during the study without any correlation for seizure. Clinical correlation is recommended Objective - Vital Signs Vital signs: Vital Signs Temp 98.5 F 03/04/23 16:00 Pulse 80 03/04/23 20:39 Resp 34 H 03/04/23 19:00 BP 138/85 03/04/23 19:00 Pulse Ox 95 03/04/23 19:00 FiO2 Intake & Output 03/04/23 03/04/23 03/05/23 06:59 18:59 06:59 Intake Total 3137.811 2047.443 125 Output Total 1950 5460 200 Balance 1187.811 -3412.557 -75 Weight 81.4 kg 81.4 kg Intake: IV 1850 150 Dextrose 5% in Water 1, 1650 150 000 ml @ 150 mls/hr IV . Q6H40M [facility] Rx#:[id number] Piperacillin-Tazobactam 3 200 .375 gm In Sodium Chloride 0.9% 100 ml @ 25 mls/hr IVPB Q8H [facility] Rx#: [id number] Intake, IV Titration 223.811 733.443 70 Amount Dexmedetomidine/0.9% NaCl 73.811 53.443 (Pmx) 400 mcg In Empty Bag 1 bag @ 0.2 MCG/KG/HR 3.742 mls/hr IV .Q24H [facility] Rx#:[id number] Dextrose 5% in Water 1, 150 300 000 ml @ 150 mls/hr IV . Q6H40M [facility] Rx#:[id number] Dextrose 5% in Water 1, 210 70 000 ml @ 70 mls/hr IV . [id number] [facility] Rx#:[id number] Dextrose 5%-0.45% NaCl 1, 70 000 ml @ 10 mls/hr IV . Q24H [facility] Rx#:[id number] Piperacillin-Tazobactam 3 100 .375 gm In Sodium Chloride 0.9% 100 ml @ 25 mls/hr IVPB Q8H [facility] Rx#: [id number] Oral 0 0 0 Tube Feeding 464 564 55 Other 600 600 0 Output: Urine 1950 5460 200 Other: Voiding Method Indwelling Catheter Indwelling Catheter - Exam On examination patient is clearly very encephalopathic. Patient is currently on Precedex 0.6 mcg/kg per hour. Patient not responding to any painful stimuli, not even facial grimacing or withdrawing her extremities. No obvious seizure- like activity noticed. She does have a cough does move her extremities spontaneously. Patient does have history of mental health issues. Her face is symmetric, pupils are equal, round and reactive to light. She does not make any eye contact, does not track. Oculocephalics are present. Corneals present. Tone is equal in the arms and legs. Reflexes are 2+ in the upper limbs, 3 at the knees, bilateral Babinski. Patient does not respond to light touch or painful stimuli. - Labs CBC & Chem 7: 03/04/23 04:30 03/04/23 12:52 Labs: Abnormal Lab Results - Last 24 Hours (Table) 03/04/23 03/04/23 03/04/23 Range/Units 04:30 04:30 11:37 MCV 102.8 H (80.0-100.0) fL MCHC 29.9 L (31.0-37.0) g/dL Plt Count 142 L (150-450) k/uL Lymphocytes # (Manual) 0.95 L (1.0-4.8) k/uL Sodium 148 H (137-145) mmol/L Chloride 122 H (98-107) mmol/L Carbon Dioxide 17 L (22-30) mmol/L BUN 20 H (7-17) mg/dL Creatinine 1.33 H (0.52-1.04) mg/dL Glucose 144 H (74-99) mg/dL POC Glucose (mg/dL) 130 H (70-110) mg/dL 03/04/23 Range/Units 12:52 MCV (80.0-100.0) fL MCHC (31.0-37.0) g/dL Plt Count (150-450) k/uL Lymphocytes # (Manual) (1.0-4.8) k/uL Sodium 153 H (137-145) mmol/L Chloride (98-107) mmol/L Carbon Dioxide (22-30) mmol/L BUN (7-17) mg/dL Creatinine (0.52-1.04) mg/dL Glucose (74-99) mg/dL POC Glucose (mg/dL) (70-110) mg/dL Microbiology - Last 24 Hours (Table) 03/01/23 14:53 Blood Culture - Preliminary Blood 03/01/23 14:53 Blood Culture - Preliminary Blood 03/02/23 21:15 CSF Culture - Preliminary Cerebral Spinal Fluid Assessment and Plan Assessment: Severe Altered mental status seems due to underlying sepsis from possibly pneumonia and metabolic encephalopathy. CSF study is negative. EEG was negative for seizure but had discharges likely stemming from left frontal region. Persistently abnormal EEG. Tremor of upper extremities and per sister is chronic and is due to psych medication Possible underlying Pneumonia Leukocytosis and no fever yet: Possible pneumonia---resolved Hypernatremia--worsening KAHLIL Hypertension Hypothyroidism Bipolar Anxiety/depression Plan: Acyclovir discontinued, as no evidence of encephalitis on CSF. ID also on board. We will perform prolonged EEG in the morning because of persistently abnormal EEG and significantly abnormal mental status. Patient has persistently abnormal EEG, but Dr. Yan has decreased Vimpat from 100mg bid (started during this hospital visit) down to 50 mg twice a day. We will repeat prolonged EEG in the morning. It was reported that epileptiform discharges stemming likely from left frontal. The tremors of uppers was recorded during EEG study without correlation for seizure. Because of low normal vitamin B12, started her on Vitamin B12 1000mcg IM once then PO after that. Pending MRI Brain once stable to rule out central cause. Discussed with patient's nurse in detail. Will defer the management to primary and other specialist.
--- NOTE | 2023-03-04 21:55 | P.PN ---
Subjective Progress Note Date: 03/04/23 Principal diagnosis: Sepsis/pneumonia Patient is a 62-year-old female with a past medical history significant for hypertension hyperlipidemia bipolar disorder patient was brought into the ER at [facility] after the patient was found to be unresponsive at home, patient did have a fever and significant mental status changes concerning for encephalitis the patient is status post LP completed on 03/03/2023 that was negative. On today's evaluation that is 03/04/2023, the patient remains to be afebrile, the patient is hemodynamically stable not requiring any pressor support she did have NG for feeding and free water , breathing comfortably on 2 L nasal cannula oxygen, no vomiting or diarrhea or any other changes were reported by the nursing staff patient cannot provide any history Objective - Vital Signs Vital signs: Vital Signs Temp 98.8 F 03/04/23 08:00 Pulse 60 03/04/23 11:30 Resp 26 H 03/04/23 11:00 BP 110/66 03/04/23 11:00 Pulse Ox 96 03/04/23 09:00 FiO2 Intake & Output 03/03/23 03/04/23 03/04/23 18:59 06:59 18:59 Intake Total 2235.860 3137.811 1030.3 Output Total 1180 1950 2450 Balance 5793.106 3356.811 -1419.7 Weight 80.6 kg 81.4 kg Intake: IV 125 1850 150 Dextrose 5% in Water 1, 125 000 ml @ 125 mls/hr IV . Q8H [facility] Rx#:[id number] Dextrose 5% in Water 1, 1650 150 000 ml @ 150 mls/hr IV . Q6H40M [facility] Rx#:[id number] Piperacillin-Tazobactam 3 200 .375 gm In Sodium Chloride 0.9% 100 ml @ 25 mls/hr IVPB Q8H [facility] Rx#: [id number] Intake, IV Titration 1810.860 223.811 465.3 Amount Dexmedetomidine/0.9% NaCl 80.860 73.811 35.3 (Pmx) 400 mcg In Empty Bag 1 bag @ 0.2 MCG/KG/HR 3.742 mls/hr IV .Q24H [facility] Rx#:[id number] Dextrose 5% in Water 1, 1550 150 300 000 ml @ 150 mls/hr IV . Q6H40M [facility] Rx#:[id number] Dextrose 5%-0.45% NaCl 1, 30 000 ml @ 20 mls/hr IV . Q24H [facility] Rx#:[id number] Piperacillin-Tazobactam 3 100 100 .375 gm In Sodium Chloride 0.9% 100 ml @ 25 mls/hr IVPB Q8H [facility] Rx#: [id number] Potassium Chloride 10 meq 30 In Water For Injection 1 100ml.bag @ 100 mls/hr IVPB Q1HR [facility] Rx#: [id number] cefTRIAXone 2 gm In 50 Sodium Chloride 0.9% 50 ml @ 100 mls/hr IVPB Q12HR [facility] Rx#:[id number] Oral 0 0 0 Tube Feeding 100 464 215 Other 200 600 200 Output: Urine 1180 1950 2450 Other: Voiding Method Indwelling Catheter Indwelling Catheter - Exam GENERAL DESCRIPTION: A middle-age female lying in bed in no distress RESPIRATORY SYSTEM: Unlabored breathing , decreased breath sounds at bases HEART: S1 S2 regular rate and rhythm , ABDOMEN: Soft , no tenderness EXTREMITIES: No edema feet - Labs CBC & Chem 7: 03/04/23 04:30 03/04/23 21:07 Labs: Abnormal Lab Results - Last 24 Hours (Table) 03/03/23 03/04/23 03/04/23 Range/Units 17:31 04:30 04:30 MCV 102.8 H (80.0-100.0) fL MCHC 29.9 L (31.0-37.0) g/dL Plt Count 142 L (150-450) k/uL Lymphocytes # (Manual) 0.95 L (1.0-4.8) k/uL Sodium 150 H 148 H (137-145) mmol/L Chloride 122 H (98-107) mmol/L Carbon Dioxide 17 L (22-30) mmol/L BUN 20 H (7-17) mg/dL Creatinine 1.33 H (0.52-1.04) mg/dL Glucose 144 H (74-99) mg/dL POC Glucose (mg/dL) (70-110) mg/dL 03/04/23 Range/Units 11:37 MCV (80.0-100.0) fL MCHC (31.0-37.0) g/dL Plt Count (150-450) k/uL Lymphocytes # (Manual) (1.0-4.8) k/uL Sodium (137-145) mmol/L Chloride (98-107) mmol/L Carbon Dioxide (22-30) mmol/L BUN (7-17) mg/dL Creatinine (0.52-1.04) mg/dL Glucose (74-99) mg/dL POC Glucose (mg/dL) 130 H (70-110) mg/dL Microbiology - Last 24 Hours (Table) 03/02/23 21:15 CSF Culture - Preliminary Cerebral Spinal Fluid 03/01/23 14:53 Blood Culture - Preliminary Blood 03/01/23 14:53 Blood Culture - Preliminary Blood Assessment and Plan (1) Pneumonia Current Visit: Yes Status: Acute Code(s): J18.9 - PNEUMONIA, UNSPECIFIED ORGANISM SNOMED Code(s): 894111222 (2) Sepsis Current Visit: Yes Status: Acute Code(s): A41.9 - SEPSIS, UNSPECIFIED ORGANISM SNOMED Code(s): 25986967 Plan: 1patient presented hospital with an episode of unresponsiveness in this patient apparently was noticed to be covered in feces on the floor patient did have a low-grade fever on presentation to the hospital did have elevated white count and significant agitation concerning for possible encephalitis of viral etiology meningitis less likely but not entirely excluded 2-patient did have elevated creatinine high risk of nephrotoxicity from vancomycin 3Patient did have LP within normal protein no white count and a glucose of 77 not indicated above serious infection acyclovir has been discontinued 4-patient to continue with Zosyn to cover for aspiration pneumonia and monitor clinical course closely Time with Patient: Less than 30
[2023-03-05] MEDS: NOREPINEPHRINE 4 MG in SODIUM CHLORIDE 0.9% 250 ML IV SCH ×2 (00:06→23:41)
[2023-03-05] MEDS: HYDROmorphone 0.5 MG/0.5 ML SYRINGE IVP PRN ×2 (02:24→12:03)
[2023-03-05] MEDS: PIPERACILLIN-TAZOBACTAM 3.375 GM in SODIUM CHLORIDE 0.9% 100 ML IVPB SCH ×3 (02:39→18:27)
[2023-03-05] MEDS: DEXTROSE 5% IN WATER 1,000 ML IV SCH ×3 (04:34→22:50)
[2023-03-05 04:37] LABS: HCT 42.8 % (34.0-46.0); HGB 13.6 gm/dL (11.4-16.0); Hypochromasia Moderate; MCH 31.2 pg (25.0-35.0); MCHC 31.7 g/dL (31.0-37.0); MCV 98.5 fL (80.0-100.0); Mean Platelet Volume 9.2; Platelet Count 169 k/uL (150-450); RBC 4.34 m/uL (3.80-5.40); RDW 14.2 % (11.5-15.5); WBC 7.7 k/uL (3.8-10.6)
[2023-03-05 04:47] LABS: African American GFR (CKD) 46 (>60 ml/min/1.73 sqM); Anion Gap 10 mmol/L; Blood Urea Nitrogen 27 mg/dL (7-17); Calcium 9.7 mg/dL (8.4-10.2); Carbon Dioxide 25 mmol/L (22-30); Chloride 117 mmol/L (98-107); Glucose 172 mg/dL (74-99); Non-African American GFR(CKD) 40 (>60 ml/min/1.73 sqM); Potassium 3.3 mmol/L (3.5-5.1); Sodium 152 mmol/L (137-145)
[2023-03-05] MEDS: LEVOTHYROXINE 125 MCG TAB PO SCH (06:07)
[2023-03-05] MEDS: IPRATROPIUM-ALBUTEROL 3 ML NEB INHALATION SCH ×4 (07:53→21:29)
[2023-03-05] MEDS: DEXMEDETOMIDINE/0.9% NACL(PMX) 400 MCG in EMPTY BAG 1 BAG IV SCH ×2 (07:55→18:29)
[2023-03-05] MEDS: LITHIUM CARBONATE 300 MG PO SCH ×2 (08:00→21:47)
[2023-03-05] MEDS: OXYBUTYNIN XL 5 MG TAB.ER.24 PO SCH (08:00)
--- NOTE | 2023-03-05 08:01 | US ---
EXAMINATION TYPE: US carotid duplex BILAT DATE OF EXAM: 03/04/2023 COMPARISON: NONE CLINICAL INDICATION: Female, 62 years old with history of Persistent severe encephalopathy and abnorm al EEGs; Limited due to ICU patient and could not turn head TECHNIQUE: Carotid duplex ultrasound examination. Indirect Doppler criteria was utilized. FINDINGS: EXAM MEASUREMENTS: RIGHT: Peak Systolic Velocity (PSV) cm/sec ----- Right CCA: 46.8 ----- Right ICA: 53.3 ----- Right ECA: 50.5 ICA/CCA ratio: 1.1 RIGHT: End Diastole cm/sec ----- Right CCA: 19.4 ----- Right ICA: 23.3 ----- Right ECA: 14.2 LEFT: Peak Systolic Velocity (PSV) cm/sec ----- Left CCA: 65.1 ----- Left ICA: 71.3 ----- Left ECA: 66.9 ICA/CCA ratio: 1.1 LEFT: End Diastole cm/sec ----- Left CCA: 18.8 ----- Left ICA: 27.4 ----- Left ECA: 14.2 VERTEBRALS (direction of flow): Right Vertebral: Antegrade Left Vertebral: Antegrade Rhythm: Normal [employer] NOTES: No elevated velocities IMPRESSION: Less than 50% stenosis of the bilateral carotid bifurcations. Criteria for Assigning % of Stenosis / Diameter reduction (Estimation based on the indirect measurements of the internal carotid artery velocities (ICA PSV). 1. Normal (no stenosis)=ICA PSV < 125 cm/s: ratio < 2.0: ICA EDV<40 cm/s. 2. Less than 50% stenosis=ICA PSV < 125 cm/s: ratio < 2.0: ICA EDV<40 cm/s. 3. 50 to 69% stenosis=ICA PSV of 125 to 230 cm/s: ration 2.0 ? 4.0: ICA EDV 40-100 cm/s. 4. Greater than 70% stenosis to near occlusion= ICA PSV > 230 cm/s: ratio > 4.0: ICA EDV > 100 cm/s. 5. Near occlusion= ICA PSV velocities may be low or undetectable: variable ratio and ICA EDV. 6. Total occlusion=unable to detect flow.
--- NOTE | 2023-03-05 08:20 | XR ---
EXAMINATION TYPE: XR chest 1V portable DATE OF EXAM: 03/05/2023 5:39 AM COMPARISON: Chest radiographs from 03/04/2023 TECHNIQUE: XR chest 1V portable Frontal view of the chest. CLINICAL INDICATION:Female, 62 years old with history of PNA; FINDINGS: Lungs/Pleura: Right perihilar opacities remain present. There is no evidence of pleural effusion, foc al consolidation, or pneumothorax. Pulmonary vascularity: Unremarkable. Heart/mediastinum: Cardiomediastinal silhouette is unremarkable. Musculoskeletal: No acute osseous pathology. Gastric tube projecting off the inferior aspect of the radiograph. IMPRESSION: Right perihilar opacities are similar prior.
[2023-03-05] MEDS: MULTIVITAMINS, THERA 1 EACH TAB PO SCH (09:31)
[2023-03-05] MEDS: PANTOPRAZOLE 40 MG/10 ML VIAL IVP SCH ×2 (09:31→21:43)
[2023-03-05] MEDS: ATORVASTATIN 10 MG TAB PO SCH (09:31)
[2023-03-05] MEDS: METOPROLOL TARTRATE 12.5 MG TAB PO SCH ×2 (09:31→21:36)
[2023-03-05] MEDS: CYANOCOBALAMIN 500 MCG TAB PO SCH (09:31)
[2023-03-05] MEDS: Lacosamide IV (ages 17+ yrs) 200 MG/20 ML ML IVP SCH ×2 (09:32→21:43)
--- NOTE | 2023-03-05 11:12 | P.PN ---
Subjective Patient is a 62-year-old female seen for follow-up for severe hyponatremia and acute kidney injury. Patient remains obtunded and was transferred to the ICU. Patient has been started on Precedex. Patient was started on free water down the feeding tube along with D5W. Serum sodium had decreased to 148 yesterday and therefore D5W was discontinued however later on sodium had increased back to 154 therefore D5W has been restarted along with free water down the feeding tube. Sodium 152 this morning. High urine output noted at 7 L for 24 hours. Previously it was around 2-3 L per day. Objective - Vital Signs Vital signs: Vital Signs Temp 98.4 F 03/05/23 08:00 Pulse 61 03/05/23 09:00 Resp 25 H 03/05/23 10:00 BP 114/89 03/05/23 10:00 Pulse Ox 94 L 03/05/23 10:00 FiO2 Intake & Output 03/04/23 03/05/23 03/05/23 18:59 06:59 18:59 Intake Total 2047.443 2563.924 435.446 Output Total 5460 1590 300 Balance -3412.557 973.924 135.446 Weight 81.4 kg 82.8 kg Intake: IV 150 1140 200 D5W 1040 200 Dextrose 5% in Water 1, 150 000 ml @ 150 mls/hr IV . Q6H40M [facility] Rx#:[id number] Piperacillin-Tazobactam 3 100 .375 gm In Sodium Chloride 0.9% 100 ml @ 25 mls/hr IVPB Q8H [facility] Rx#: [id number] Intake, IV Titration 733.443 163.924 125.446 Amount Dexmedetomidine/0.9% NaCl 53.443 93.924 125.446 (Pmx) 400 mcg In Empty Bag 1 bag @ 0.2 MCG/KG/HR 3.742 mls/hr IV .Q24H [facility] Rx#:[id number] Dextrose 5% in Water 1, 210 70 000 ml @ 100 mls/hr IV . Q10H [facility] Rx#:[id number] Dextrose 5% in Water 1, 300 000 ml @ 150 mls/hr IV . Q6H40M [facility] Rx#:[id number] Dextrose 5%-0.45% NaCl 1, 70 000 ml @ 10 mls/hr IV . Q24H [facility] Rx#:[id number] Piperacillin-Tazobactam 3 100 .375 gm In Sodium Chloride 0.9% 100 ml @ 25 mls/hr IVPB Q8H [facility] Rx#: [id number] Oral 0 0 Tube Feeding 564 660 110 Other 600 600 Output: Urine 5460 1590 300 Other: Voiding Method Indwelling Catheter Indwelling Catheter - Exam Patient remains obtunded, opens eyes on verbal stimuli, slightly improved from admission. Examination of the heart S1 and S2 Examination of the lungs bilateral breath sounds are heard Abdomen is soft nontender Examination of lower extremities shows no significant edema - Labs CBC & Chem 7: 03/05/23 04:20 03/05/23 04:20 Labs: Abnormal Lab Results - Last 24 Hours (Table) 03/04/23 03/04/23 03/04/23 Range/Units 11:37 12:52 21:07 Sodium 153 H 154 H (137-145) mmol/L Potassium (3.5-5.1) mmol/L Chloride (98-107) mmol/L BUN (7-17) mg/dL Creatinine (0.52-1.04) mg/dL Glucose (74-99) mg/dL POC Glucose (mg/dL) 130 H (70-110) mg/dL 03/05/23 Range/Units 04:20 Sodium 152 H (137-145) mmol/L Potassium 3.3 L (3.5-5.1) mmol/L Chloride 117 H (98-107) mmol/L BUN 27 H (7-17) mg/dL Creatinine 1.40 H (0.52-1.04) mg/dL Glucose 172 H (74-99) mg/dL POC Glucose (mg/dL) (70-110) mg/dL Microbiology - Last 24 Hours (Table) 03/02/23 21:15 CSF Culture - Preliminary Cerebral Spinal Fluid 03/01/23 14:53 Blood Culture - Preliminary Blood 03/01/23 14:53 Blood Culture - Preliminary Blood Assessment and Plan Assessment: 1. Acute kidney injury, ischemic ATN associated with hypotension, currently nonoliguric and improving. UA shows trace protein no blood or cells 2. Hypernatremia associated with free water deficit. Maintained on D5W and free water down the feeding tube. Urine output noted at 7 L for last 24 hours. Need to consider underlying diabetes insipidus if urine output remains high. Previously patient had 2-3 L per day of urine output. 3. Mental status changes associated with electrolyte imbalance and sepsis, possibly related to medications. Drug screen is negative except for benzodiazepines which is noted on her med list. 4. Lactic acidosis associated with hypotension 5. Hypokalemia associated with decreased oral intake 6. Right-sided community-acquired pneumonia with sepsis 7. Non-gap metabolic acidosis associated with acute kidney injury, renal function is improving. Plan: Continue D5W at 100 mL an hour Continue free water on the feeding tube Repeat sodium later this evening. Consider diabetes insipidus if patient continues to have large volume of urine output.
[2023-03-05 11:35] LABS: VDRL, Qualitative CSF Nonreactive (Nonreactive)
--- NOTE | 2023-03-05 11:38 | CT ---
EXAMINATION TYPE: CT brain wo con DATE OF EXAM: 03/05/2023 COMPARISON: 03/01/2023 HISTORY: 62-year-old female unequal pupils, confusion, ams TECHNIQUE: Examination was done in axial plane without intravenous contrast. Coronal and sagittal r econstructions performed. CT DLP: 1172.4 mGycm Automated exposure control for dose reduction was used. FINDINGS: Interval development of a trace midline falx subdural hematoma that extends mid to posteriorly measur ing up to 4 mm thick posteriorly and 2 mm thick superiorly. No other acute intracranial hemorrhage is seen. There is no evidence of acute ischemic changes, mass, mass-effect, or extra-axial fluid collection. There is no effacement of cerebral sulci or basal subarachnoid cisterns. There is no hydrocephalus. There is no midline shift. Lara-white matter distinction is preserved. NG tube. Air-fluid level right maxillary sinus. Moderate mucosal thickening ethmoid air cells now. Or bits and globes are intact. Mastoid air cells are well pneumatized. IMPRESSION: Interval development of trace, acute subdural hematoma extending from the mid aspect of the head back posteriorly, and measuring up to 4 mm thick. No midline shift, mass effect, or other acute process s een. Findings called to nurse Joyce on 2SICU at 11:35am.
--- NOTE | 2023-03-05 11:41 | P.PN ---
Subjective HISTORY OF PRESENTING ILLNESS With history of hyperlipidemia, hypothyroidism, anxiety, depression, hypertension, tobacco abuse, marijuana use, bipolar disorder. Patient currently altered mental status and history is supplied by chart and staff. Patient was found unresponsive 03/01/2023 with feces around her. Chest x-ray showed infiltrate concerning for aspiration and was placed on antibiotics. CT brain showed no acute process. Patient is found to have acute kidney injury with creatinine 1.76 and increased sodium in the 150 range. She has been on free water flushes and D5W with mild improvement in sodium as well as improvement in creatinine. She briefly had hypotension and was transferred to ICU and placed on norepinephrine briefly however since that time has had normal blood pressure. Neurology and nephro are following. She remains unresponsive and on Precedex and if Precedex is weaned, she will become more agitated. No prior history of any heart failure. Echo showed cardiomyopathy with EF 20-25%. No significant respiratory distress however has been started on Lasix and maintaining good urine output. No significant lower extremity edema. She is receiving tube feeds with 40 cc per hour. EKG shows sinus rhythm, normal axis, nonspecific minimal ST depressions in the lateral leads. 03/05 Patient seen and examined. Patient still not responsive. Not following commands. No significant events on telemetry. REVIEW OF SYSTEMS At the time of my exam: Unable to obtain secondary to unresponsive PHYSICAL EXAMINATION Vital signs reviewed. CONSTITUTIONAL: No apparent distress, nonresponsive. HEENT: Head is normocephalic. Pupils are equal, round. Sclerae anicteric. Mucous membranes of the mouth are moist. No JVD. No carotid bruit. CHEST EXAMINATION: Lungs are clear to auscultation. No chest wall tenderness is noted on palpation or with deep breathing. HEART EXAMINATION: Regular rate and rhythm. S1, S2 heard. No murmurs, gallops or rub. ABDOMEN: Soft, nontender. Positive bowel sounds. EXTREMITIES: 2+ peripheral pulses, no lower extremity edema and no calf tenderness. NEUROLOGIC EXAMINATION: Patient is nonresponsive ASSESSMENT 1. Altered mental status with patient being found down and altered in her feces, Neuro workup in progress 2. Acute kidney injury, improving with IV fluids 3. Hypernatremia mildly improving with free water flushes and D5W 4. Chronic systolic heart failure 5. New-onset cardiomyopathy EF 20-25% unclear ischemic versus nonischemic, possible Takotsubo's 6. Hypertension 7. Hyperlipidemia 8. Psychiatric history PLAN New-onset cardiomyopathy of unclear etiology. Patient not have any significant ischemic symptoms apparently and troponin normal. Currently she has been improving with IV fluids and defer fluid management to nephrology with significant hypernatremia. Appears to be tolerating Metoprolol however otherwise BPs borderline and therefore continue with current regimen. Continue with current supportive care. Fluid management per nephro. No further recs from cardiology standpoint. Will need outpt followup for further workup and management of systolic heart failure. Objective - Vital Signs Vital signs: Vital Signs Temp 98.4 F 03/05/23 08:00 Pulse 61 03/05/23 09:00 Resp 25 H 03/05/23 10:00 BP 114/89 03/05/23 10:00 Pulse Ox 94 L 03/05/23 10:00 FiO2 Intake & Output 03/04/23 03/05/23 03/05/23 18:59 06:59 18:59 Intake Total 2047.443 2563.924 435.446 Output Total 5460 1590 300 Balance -3412.557 973.924 135.446 Weight 81.4 kg 82.8 kg Intake: IV 150 1140 200 D5W 1040 200 Dextrose 5% in Water 1, 150 000 ml @ 150 mls/hr IV . Q6H40M [facility] Rx#:[id number] Piperacillin-Tazobactam 3 100 .375 gm In Sodium Chloride 0.9% 100 ml @ 25 mls/hr IVPB Q8H [facility] Rx#: [id number] Intake, IV Titration 733.443 163.924 125.446 Amount Dexmedetomidine/0.9% NaCl 53.443 93.924 125.446 (Pmx) 400 mcg In Empty Bag 1 bag @ 0.2 MCG/KG/HR 3.742 mls/hr IV .Q24H [facility] Rx#:[id number] Dextrose 5% in Water 1, 210 70 000 ml @ 100 mls/hr IV . Q10H [facility] Rx#:[id number] Dextrose 5% in Water 1, 300 000 ml @ 150 mls/hr IV . Q6H40M [facility] Rx#:[id number] Dextrose 5%-0.45% NaCl 1, 70 000 ml @ 10 mls/hr IV . Q24H [facility] Rx#:[id number] Piperacillin-Tazobactam 3 100 .375 gm In Sodium Chloride 0.9% 100 ml @ 25 mls/hr IVPB Q8H [facility] Rx#: [id number] Oral 0 0 Tube Feeding 564 660 110 Other 600 600 Output: Urine 5460 1590 300 Other: Voiding Method Indwelling Catheter Indwelling Catheter - Labs CBC & Chem 7: 03/05/23 04:20 03/05/23 04:20 Labs: Abnormal Lab Results - Last 24 Hours (Table) 03/04/23 03/04/23 03/04/23 Range/Units 11:37 12:52 21:07 Sodium 153 H 154 H (137-145) mmol/L Potassium (3.5-5.1) mmol/L Chloride (98-107) mmol/L BUN (7-17) mg/dL Creatinine (0.52-1.04) mg/dL Glucose (74-99) mg/dL POC Glucose (mg/dL) 130 H (70-110) mg/dL 03/05/23 Range/Units 04:20 Sodium 152 H (137-145) mmol/L Potassium 3.3 L (3.5-5.1) mmol/L Chloride 117 H (98-107) mmol/L BUN 27 H (7-17) mg/dL Creatinine 1.40 H (0.52-1.04) mg/dL Glucose 172 H (74-99) mg/dL POC Glucose (mg/dL) (70-110) mg/dL Microbiology - Last 24 Hours (Table) 03/02/23 21:15 CSF Culture - Preliminary Cerebral Spinal Fluid 03/01/23 14:53 Blood Culture - Preliminary Blood 03/01/23 14:53 Blood Culture - Preliminary Blood
[2023-03-05] MEDS: POTASSIUM BICARBONATE/CIT AC 20 MEQ TABLET.EFF NG-TUBE SCH ×2 (12:16→18:27)
--- NOTE | 2023-03-05 13:54 | P.PN ---
Subjective Progress Note Date: 03/05/23 Principal diagnosis: Altered mental status, acute aspiration pneumonia and metabolic encephalopathy This is a 62-year-old female patient with a known history of hyperlipidemia, hy pothyroidism, anxiety/depression, hypertension, chronic and ongoing tobacco dependence, marijuana use, bipolar disorder and she was brought into the emergency room yesterday 03/01/2023 with altered mental status and unresponsiveness with intermittent episodes of restlessness. She apparently was covered in dried feces. Chest x-ray revealed right mid and lower lung. Hilar airspace consolidation concerning for pneumonia. Computed tomography scan of the brain revealed no gross evidence of acute intracranial process. White count 15.5. Hemodynamically 0.8. Platelets 166. Sodium 151. Potassium 3.3. Bicarb 22. BUN 37. Creatinine 1.76. Glucose 119. Lactic acid 2.1. AST 47. ALT 25. Urine drug screen positive for benzodiazepines. Influenza screen negative. RSV screen negative. COVID-19 screen negative. We're consulted today as the patient had an ongoing issues with restlessness requiring 7 mg of Ativan in the past hour and a half and requiring transfer to the intensive care unit. She is seen currently on the regular medical floor. She is arousable but drifts off easily. She is afebrile. She is maintaining O2 saturation 90s on room air. She's hemodynamically stable. She had been seen by neurology who is prescribing Ativan, Vimpat and Depakote to rule out seizure disorder. The plan is for a lumbar puncture and an MRI of the brain once the patient is more calm and cooperative. She will be transferred to the intensive care unit. Possible need for Precedex. Patient was reevaluated today on 03/03/2023, I saw this patient yesterday on consultation, and I recommended transfer to the ICU. Patient apparently had an acute onset of altered mental status, and she was extremely agitated on the floor, requiring significant amount of sedation. Transfer the patient to the ICU and placed on Precedex. Remains on Precedex at 0.2. Remains on D5W at 1 25 mL per hour. Patient had a lumbar puncture yesterday which is so far nondiagnostic. Patient is off acyclovir and off ceftriaxone, I will recommend Zosyn for possible potential aspiration pneumonia. We'll address her hypernatremia with giving her more free water. Patient obviously presented with significant free water deficit and dehydration. She is now on nasal cannula at 2 L, doesn't seem to be in respiratory distress, but she is intermittently agitated, remains encephalopathic, seen by neurology, CT of the brain is nondiagnostic spinal fluid is nondiagnostic. Neurology is recommending MRI. In the meantime I will address her metabolic derangements, and continue to monitor in the ICU WBC count is 10.4 hemoglobin is 12.9. Sodium is 154 today chloride is 123 BUN is down to 26 and her creatinine is 1.59, improving to compared to creatinine 2.46 on 03/01. Pro-calcitonin level is elevated at 15.8. Patient does have a pneumonia involving mostly the right side, and I strongly suspect aspiration pneumonia. Spinal fluid protein is 50 and glucose is 77. Chest x- ray today shows nasogastric tube in the distal stomach, and she has a patchy bibasilar airspace opacities again mostly consistent with aspiration pneumonia. Ejection fraction on this patient is 20-25% at best. I'll see the patient has severe cardiomyopathy, we will consult cardiology to evaluate. Patient was reevaluated today on 03/04/03, remains in the ICU on 2 L nasal cannula, her sodium is correcting nicely down to 148. Remains on D5W at 1 50 mL/h, her IV fluid will be changed to D5 45 at KVO, and she is still receiving free water via nasogastric tube. Patient is developing mild interstitial edema and possibly fluid overload, and I'm recommending Lasix 40 mg IV push. Patient is known to have history of LV dysfunction, ejection fraction of 20-25%. Cardiology is considering the possibility of takustubo syndrome. Patient remains very confused, she has been followed by neurology and multiple other consultants. Patient does have some psychiatric history. He has bipolar disorder. And possible schizoaffective disorder. At any rate patient does not seem to be in any distress, her spinal fluid was nondiagnostic. Except for a slightly elevated sodium of 148, her creatinine is coming down to 1.33 from 2.46 on admission. Bicarb remains a bit low at 17. Pro-calcitonin level elevated at 15.8, I believe it is mostly secondary to her right sided aspiration pneumonia remains on antibiotics empirically Reevaluated today on 03/05/2023, patient is basically about the same, remains confused, remains encephalopathic, repeat CT of the brain this morning questioned a small tiny subdural hematoma. Hence I instructed the nurse to notify the primary care physician about the findings and the neurologist, patient may have to be considered for transfer to a tertiary care center or at least a center where they have neurosurgery on board. In the meantime the patient is not demonstrating any significant improvement in her neurological status. She has many other problems including acute kidney injury, severe cardiomyopathy with ejection fraction of 20-25%, chronic systolic congestive heart failure, and electrolytes imbalance with hypernatremia, and she has a long-standing psychiatric history per Objective - Vital Signs Vital signs: Vital Signs Temp 98.3 F 03/05/23 12:00 Pulse 61 03/05/23 13:00 Resp 33 H 03/05/23 13:00 BP 99/86 03/05/23 13:00 Pulse Ox 94 L 03/05/23 13:00 FiO2 Intake & Output 03/04/23 03/05/23 03/05/23 18:59 06:59 18:59 Intake Total 2047.443 2563.924 823.397 Output Total 5460 1590 550 Balance -3412.557 973.924 273.397 Weight 81.4 kg 82.8 kg Intake: IV 150 1140 200 D5W 1040 200 Dextrose 5% in Water 1, 150 000 ml @ 150 mls/hr IV . Q6H40M [facility] Rx#:[id number] Piperacillin-Tazobactam 3 100 .375 gm In Sodium Chloride 0.9% 100 ml @ 25 mls/hr IVPB Q8H [facility] Rx#: [id number] Intake, IV Titration 733.443 163.924 148.397 Amount Dexmedetomidine/0.9% NaCl 53.443 93.924 148.397 (Pmx) 400 mcg In Empty Bag 1 bag @ 0.2 MCG/KG/HR 3.742 mls/hr IV .Q24H [facility] Rx#:[id number] Dextrose 5% in Water 1, 210 70 000 ml @ 100 mls/hr IV . Q10H [facility] Rx#:[id number] Dextrose 5% in Water 1, 300 000 ml @ 150 mls/hr IV . Q6H40M [facility] Rx#:[id number] Dextrose 5%-0.45% NaCl 1, 70 000 ml @ 10 mls/hr IV . Q24H [facility] Rx#:[id number] Piperacillin-Tazobactam 3 100 .375 gm In Sodium Chloride 0.9% 100 ml @ 25 mls/hr IVPB Q8H [facility] Rx#: [id number] Oral 0 0 Tube Feeding 564 660 275 Other 600 600 200 Output: Urine 5460 1590 550 Other: Voiding Method Indwelling Catheter Indwelling Catheter Indwelling Catheter - Exam GENERAL EXAM: Patient is sedated, on Precedex, encephalopathic HEAD: Normocephalic. EYES: Normal reaction of pupils, right pupil seems to be satiety bit larger than the left pupil NOSE: Clear with pink turbinates. THROAT: No erythema or exudates. NECK: No masses, no JVD. CHEST: No chest wall deformity. LUNGS: Equal air entry with no crackles, wheeze, rhonchi or dullness. CVS: S1 and S2 normal with no audible murmur, regular rhythm. ABDOMEN: No hepatosplenomegaly, normal bowel sounds, no guarding or rigidity. SKIN: No rashes CENTRAL NERVOUS SYSTEM: On Precedex, encephalopathic, does not follow any i nstructions, does not verbalize, gets agitated easily. EXTREMITIES: No clubbing edema or cyanosis. - Labs CBC & Chem 7: 03/05/23 04:20 03/05/23 04:20 Labs: Abnormal Lab Results - Last 24 Hours (Table) 03/04/23 03/05/23 Range/Units 21:07 04:20 Sodium 154 H 152 H (137-145) mmol/L Potassium 3.3 L (3.5-5.1) mmol/L Chloride 117 H (98-107) mmol/L BUN 27 H (7-17) mg/dL Creatinine 1.40 H (0.52-1.04) mg/dL Glucose 172 H (74-99) mg/dL Microbiology - Last 24 Hours (Table) 03/02/23 21:15 CSF Culture - Preliminary Cerebral Spinal Fluid 03/01/23 14:53 Blood Culture - Preliminary Blood 03/01/23 14:53 Blood Culture - Preliminary Blood Assessment and Plan Assessment: Impression: Acute subdural hematoma as noted on CT of the brain today. Aspiration pneumonia Altered mental status of unclear etiology, possibly underlying sepsis, possible aspiration pneumonia, metabolic encephalopathy. Subdural hematoma Leukocytosis, secondary to pneumonia./Aspiration pneumonia is strongly suspected. Hypernatremia, secondary to dehydration and free water deficit. Being addressed accordingly Acute kidney injury, I suspect that this is mostly a picture of dehydration improving with hydration. History of bipolar disorder Cardiomyopathy and LV dysfunction. History of anxiety/depression History of hypertension Hypothyroidism Hyperlipidemia Plan: Consider transferring the patient to a tertiary care center or to the hospital with neurosurgery on board. Continue to monitor the patient in the ICU for now. Change antibiotics to Zosyn, for presumptive aspiration pneumonia Continue free water and continue D5W at 100 mL/h Continue Precedex. Titrate accordingly Prognosis remains guarded. We'll continue to follow I believe the patient should be considered for transfer. We'll continue to follow Time with Patient: Less than 30
[2023-03-05] MEDS ORDERED: LORazepam 2 MG/ML INJ IV STA (15:41)
--- NOTE | 2023-03-05 15:41 | P.PN ---
Subjective Progress Note Date: 03/05/23 Principal diagnosis: Sepsis/pneumonia Patient is a 62-year-old female with a past medical history significant for hypertension hyperlipidemia bipolar disorder patient was brought into the ER at [facility] after the patient was found to be unresponsive at home, patient did have a fever and significant mental status changes concerning for encephalitis the patient is status post LP completed on 03/03/2023 that was negative. On today's evaluation that is 03/05/2023, the patient continues to be afebrile, the patient is hemodynamically stable not requiring any pressor support she did have NG for feeding and free water , the patient is breathing comfortably on 2 L nasal cannula oxygen, patient did have some loose stool as reported by the nursing staff no other changes Objective - Vital Signs Vital signs: Vital Signs Temp 98.4 F 03/05/23 08:00 Pulse 76 03/05/23 11:00 Resp 19 03/05/23 11:00 BP 126/77 03/05/23 11:00 Pulse Ox 93 L 03/05/23 11:00 FiO2 Intake & Output 03/04/23 03/05/23 03/05/23 18:59 06:59 18:59 Intake Total 2047.443 2563.924 800.446 Output Total 5460 1590 550 Balance -3412.557 973.924 250.446 Weight 81.4 kg 82.8 kg Intake: IV 150 1140 200 D5W 1040 200 Dextrose 5% in Water 1, 150 000 ml @ 150 mls/hr IV . Q6H40M [facility] Rx#:[id number] Piperacillin-Tazobactam 3 100 .375 gm In Sodium Chloride 0.9% 100 ml @ 25 mls/hr IVPB Q8H [facility] Rx#: [id number] Intake, IV Titration 733.443 163.924 125.446 Amount Dexmedetomidine/0.9% NaCl 53.443 93.924 125.446 (Pmx) 400 mcg In Empty Bag 1 bag @ 0.2 MCG/KG/HR 3.742 mls/hr IV .Q24H [facility] Rx#:[id number] Dextrose 5% in Water 1, 210 70 000 ml @ 100 mls/hr IV . Q10H [facility] Rx#:[id number] Dextrose 5% in Water 1, 300 000 ml @ 150 mls/hr IV . Q6H40M [facility] Rx#:[id number] Dextrose 5%-0.45% NaCl 1, 70 000 ml @ 10 mls/hr IV . Q24H [facility] Rx#:[id number] Piperacillin-Tazobactam 3 100 .375 gm In Sodium Chloride 0.9% 100 ml @ 25 mls/hr IVPB Q8H [facility] Rx#: [id number] Oral 0 0 Tube Feeding 564 660 275 Other 600 600 200 Output: Urine 5460 1590 550 Other: Voiding Method Indwelling Catheter Indwelling Catheter Indwelling Catheter - Exam GENERAL DESCRIPTION: A middle-age female lying in bed in no distress RESPIRATORY SYSTEM: Unlabored breathing - Labs CBC & Chem 7: 03/05/23 04:20 03/05/23 04:20 Labs: Abnormal Lab Results - Last 24 Hours (Table) 03/04/23 03/04/23 03/05/23 Range/Units 12:52 21:07 04:20 Sodium 153 H 154 H 152 H (137-145) mmol/L Potassium 3.3 L (3.5-5.1) mmol/L Chloride 117 H (98-107) mmol/L BUN 27 H (7-17) mg/dL Creatinine 1.40 H (0.52-1.04) mg/dL Glucose 172 H (74-99) mg/dL Microbiology - Last 24 Hours (Table) 03/02/23 21:15 CSF Culture - Preliminary Cerebral Spinal Fluid 03/01/23 14:53 Blood Culture - Preliminary Blood 03/01/23 14:53 Blood Culture - Preliminary Blood Assessment and Plan (1) Pneumonia Current Visit: Yes Status: Acute Code(s): J18.9 - PNEUMONIA, UNSPECIFIED ORGANISM SNOMED Code(s): 299256166 (2) Sepsis Current Visit: Yes Status: Acute Code(s): A41.9 - SEPSIS, UNSPECIFIED ORGANISM SNOMED Code(s): 97881797 Plan: 1patient presented hospital with an episode of unresponsiveness in this patient apparently was noticed to be covered in feces on the floor patient did have a low-grade fever on presentation to the hospital did have elevated white count and significant agitation concerning for possible encephalitis of viral etiology meningitis less likely but not entirely excluded 2-Patient did have LP within normal protein no white count and a glucose of 77 not indicative of [employer] infection acyclovir has been discontinued 3-patient with possible aspiration pneumonia continue with the Zosyn and monitor clinical course closely Time with Patient: Less than 30
--- NOTE | 2023-03-05 17:04 | MR ---
EXAMINATION TYPE: MR brain wo/w con DATE OF EXAM: 03/05/2023 4:48 PM CLINICAL INDICATION:Female, 62 years old with history of altered mental status of unknown cause; Alt ered mental status of unknown cause. COMPARISON: CT 03/05/2023 TECHNIQUE: Multi planar, multi sequence imaging was performed through the brain including: T1, T2, In version recovery, susceptibility weighted imaging and gradient echo imaging and Diffusion weighted im aging. The patient was then given intravenous contrast and multi planar, T1 fat-saturation images wer e obtained. IV Contrast: 8 cc Gadavist FINDINGS: The quiroz-white junctions, ventricular system, basal cisterns appear unremarkable. Diffusion-weighted imaging shows no evidence of restricted diffusion to suggest acute/subacute infarct. Intracranial art erial flow voids are maintained. Midline structures show no abnormality. Scattered foci of high T2 si gnal intensity are seen within the periventricular white matter. The susceptibility weighted images d o not reveal any evidence for micro-hemorrhage. After administration of gadolinium, no abnormal enhan cement is seen. The bone marrow signal is within normal limits. Paranasal sinuses and mastoid air cells: Mild scattered paranasal sinus disease. Visualized orbits: Orbital contents are intact. IMPRESSION: Mildly motion limited exam. 1. No evidence of intracranial mass, acute/subacute infarct, or abnormal enhancement. 2. Nonspecific white matter changes, likely related to small vessel ischemic disease
[2023-03-05] MEDS ORDERED: propofoL 100 ML IV ONE (19:51)
--- NOTE | 2023-03-05 20:37 | XR ---
EXAMINATION TYPE: XR chest 1V portable DATE OF EXAM: 03/05/2023 8:21 PM COMPARISON: Chest radiographs from 03/05/2023 TECHNIQUE: XR chest 1V portable Frontal view of the chest. CLINICAL INDICATION:Female, 62 years old with history of Tube placement; FINDINGS: Lungs/Pleura: Prominent interstitial lung markings are seen scattered throughout the lungs. No eviden ce of focal consolidation, pneumothorax or pleural effusion. Pulmonary vascularity: Unremarkable. Heart/mediastinum: Cardiomediastinal silhouette is unremarkable. Musculoskeletal: No acute osseous pathology. Other findings: None Lines/Tubes: Endotracheal tube with distal tip 1.6 cm above the isabel. Nasogastric tube with its distal tip and side-port projecting under the diaphragm. IMPRESSION: 1. Endotracheal tube in appropriate position. 2. Nasogastric tube in appropriate position. 3. Chronic interstitial lung changes.
[2023-03-05] MEDS ORDERED: CHLORHEXIDINE GLUCONATE 15 ML CUP MUCOUS MEM SCH (21:00)
[2023-03-05 21:13] LABS: ABG HCO3 30 mmol/L (21-25); ABG PCO2 47 mmHg (35-45); ABG PH 7.41 (7.35-7.45); ABG PO2 356 mmHg (83-108); ABG TCO2 31 mmol/L (19-24)
[2023-03-05 21:17] LABS: Allen Test Performed? no
[2023-03-05 21:54] VITALS: RESP 20
[2023-03-05 22:09] VITALS: BP 120/77
--- NOTE | 2023-03-05 23:31 | EEG ---
ELECTROENCEPHALOGRAM REPORT ELECTROENCEPHALOGRAM (EEG) REPORT: TECHNIQUE: This is a report from a prolonged 2-1/2-hour video EEG performed using the 10/20 [employer] Electrode Placement System. HISTORY: Pneumonia, encephalopathy, and sepsis. OTHER MEDICAL HISTORY: Includes hypertension and hyperlipidemia. CURRENT MEDICATIONS: 1. Albuterol. 2. Lipitor. 3. Haldol. 4. Dilaudid. 5. Vimpat. 6. Synthroid. 7. Lithobid. 8. Lopressor. 9. Ditropan. 10.Protonix. 11.Piperacillin. 12.Precedex. FINDINGS: RECORDING START TIME: 03/05/2023, at 06:45 a.m. RECORDING END TIME: 03/05/2023, at 09:19 a.m. EVENTS: During this 2-1/2-hour continuous video EEG, no clinical or electrographic seizures were recorded. BACKGROUND: A sustained posterior dominant rhythm was not seen. Frequencies in the posterior quadrants consisted of poorly-modulated 1 to 3 Hz waveforms. ACTIVATION: 1. Hyperventilation: Not performed. 2. Photic stimulation: Not performed. SLEEP: Distinctive sleep stages not seen. ABNORMALITIES: The most prominent finding of this recording was 1 to 2 Hz high-amplitude generalized triphasic waves. These became somewhat less periodic after approximately 1 hour and 40 minutes into the recording, but these ones waxed and waned even after that point. Intermixed with these triphasic waves was poorly-modulated 1 to 3 Hz delta-range slowing. IMPRESSION: Abnormal 2-1/2-hour video EEG. No seizures were recorded. No epileptiform activity was present. This EEG demonstrated periodic high-amplitude triphasic waves. Triphasic waves in their own right are not epileptiform in nature but can be seen in the setting of a metabolic or anoxic encephalopathy. The periodicity of these triphasic waves can be considered consistent with the ictal-interictal continuum. The diffuse delta-range slowing mentioned above is not epileptiform in nature. In combination, these findings indicate severe diffuse cerebral dysfunction. Clinical correlation is recommended. These findings were called to the consulting neurologist at 01:43 p.m., on 03/05/2023. MMODL / FEROZN: [id number] /
[2023-03-06 00:24] VITALS: TEMP 98
[2023-03-06] MEDS ORDERED: Lacosamide IV (ages 17+ yrs) 200 MG/20 ML ML IVP SCH (00:45)
--- NOTE | 2023-03-06 00:50 | P.PN ---
Subjective Progress Note Date: 03/05/23 03/05/2023: Patient was seen for a follow-up. Patient continues to be severely encephalopathic. Patient does not track, does not follow commands, does not make eye contact. No seizure-like activity has been noticed. Patient's sister was present, who provided some additional history. She mentioned that patient apparently suffered from a fall at home, hit her head and went through the dr simón. When EMS arrived, she was laying on the floor behind the couch and the whole bedroom and bathroom are messed up with feces. Patient was not responding when EMS arrived. Patient's sister also mentioned that one of the sisters of "clot in the brain", probably a stroke, and another sister had a PE. The nurse earlier reported that patient was noted to have unequal pupils. Previously her pupils were equal but sluggish. She was not following commands. Stat CT head was performed, which revealed interval development of trace, acute subdural hematoma extending from the mid aspect of the head back posteriorly, and measuring up to 4 mm thick. No midline shift, mass effect or other acute process seen. I personally reviewed CT head, agree with the findings. 03/04/2023: Patient was initially seen by Dr. Manjit Yan. Please refer to his note for details. Patient is a 62-year-old female with altered mental status. Patient underwent lumbar puncture which was negative. Patient had EEG performed twice, which was negative for seizure. However she had bilateral discharges and was on Vimpat 100 mg twice a day. Likely patient has pneumonia. Patient has tremors that is chronic and persistent her from psych medications. MRI brain pending. SOME OF THE WORK-UP DURING THIS HOSPITAL VISIT CONSISTED OF: White blood cell is 21.4 thousand predominant neutrophilic--resolved Sodium is 150--154, creatnine 2.46--1.59, AST and ALT mildly elevated. Ammonia <9. TSH: 0.656 Vitamin B12: 286 (low normal) Folate: 15.3 Urine drug screen: Positive for benzo. Otherwise negative. Serum alcohol <10 [place] is 1 which is therapeutic. SARS-CoV-2 PCR, influenza A/B and RSV are negative. CT head is reported as no gross evidence of an acute intracranial process. I personally reviewed CT and agree with report. Chest x-ray was reported as mild and lower lung perihilar space consolidation concerning for pneumonia. CSF study: clear, colorless, 0 nucleated cell, 77 glucose, 50 protein. EEG: As abnormal. Tobacco slowing suggestive of moderate encephalopathy. There are epileptiform discharges over bilateral frontal region but stemming from the left frontal. There is no seizures noted during the study. The patient tremor was seen during the study without any correlation for seizure. Clinical correlation is recommended Objective - Vital Signs Vital signs: Vital Signs Temp 98.4 F 03/05/23 08:00 Pulse 76 03/05/23 11:00 Resp 19 03/05/23 11:00 BP 126/77 03/05/23 11:00 Pulse Ox 93 L 03/05/23 11:00 FiO2 Intake & Output 03/04/23 03/05/23 03/05/23 18:59 06:59 18:59 Intake Total 2047.443 2563.924 800.446 Output Total 5460 1590 550 Balance -3412.557 973.924 250.446 Weight 81.4 kg 82.8 kg Intake: IV 150 1140 200 D5W 1040 200 Dextrose 5% in Water 1, 150 000 ml @ 150 mls/hr IV . Q6H40M [facility] Rx#:[id number] Piperacillin-Tazobactam 3 100 .375 gm In Sodium Chloride 0.9% 100 ml @ 25 mls/hr IVPB Q8H [facility] Rx#: [id number] Intake, IV Titration 733.443 163.924 125.446 Amount Dexmedetomidine/0.9% NaCl 53.443 93.924 125.446 (Pmx) 400 mcg In Empty Bag 1 bag @ 0.2 MCG/KG/HR 3.742 mls/hr IV .Q24H [facility] Rx#:[id number] Dextrose 5% in Water 1, 210 70 000 ml @ 100 mls/hr IV . Q10H [facility] Rx#:[id number] Dextrose 5% in Water 1, 300 000 ml @ 150 mls/hr IV . Q6H40M [facility] Rx#:[id number] Dextrose 5%-0.45% NaCl 1, 70 000 ml @ 10 mls/hr IV . Q24H [facility] Rx#:[id number] Piperacillin-Tazobactam 3 100 .375 gm In Sodium Chloride 0.9% 100 ml @ 25 mls/hr IVPB Q8H [facility] Rx#: [id number] Oral 0 0 Tube Feeding 564 660 275 Other 600 600 200 Output: Urine 5460 1590 550 Other: Voiding Method Indwelling Catheter Indwelling Catheter Indwelling Catheter - Exam On examination patient is clearly very encephalopathic. Patient appears slightly worse than yesterday. Patient is currently on Precedex 0.6 mcg/kg per hour. Patient not responding to any painful stimuli, not even facial grimacing or withdrawing her extremities. No obvious seizure-like activity noticed. Some tremulousness noticed of the right arm. She does have a cough does move her extremities spontaneously. Her face is symmetric, pupils are equal, round and reactive to light. She does not make any eye contact, does not track. Oculocephalics are present. Corneals present. Tone is equal in the arms and legs. Reflexes are 2+ in the upper limbs, 3 at the knees, bilateral Babinski. Patient does not respond to light touch or painful stimuli. - Labs CBC & Chem 7: 03/05/23 04:20 03/05/23 16:57 Labs: Abnormal Lab Results - Last 24 Hours (Table) 03/04/23 03/04/23 03/05/23 Range/Units 12:52 21:07 04:20 Sodium 153 H 154 H 152 H (137-145) mmol/L Potassium 3.3 L (3.5-5.1) mmol/L Chloride 117 H (98-107) mmol/L BUN 27 H (7-17) mg/dL Creatinine 1.40 H (0.52-1.04) mg/dL Glucose 172 H (74-99) mg/dL Microbiology - Last 24 Hours (Table) 03/02/23 21:15 CSF Culture - Preliminary Cerebral Spinal Fluid 03/01/23 14:53 Blood Culture - Preliminary Blood 03/01/23 14:53 Blood Culture - Preliminary Blood Assessment and Plan Assessment: Toxic metabolic encephalopathy, severe. Probable new subdural hematoma extending from the mid aspect of the head back posteriorly. This likely resulted from the fall prior to arrival (delayed subdural hematoma). Probable pneumonia and metabolic encephalopathy. CSF study is negative. EEG was negative for seizure but had discharges likely stemming from left frontal region. Persistently abnormal EEG. Tremor of upper extremities and per sister is chronic and is due to psych medication Possible underlying Pneumonia Hypernatremia--worsening KAHLIL Hypertension Hypothyroidism Bipolar Anxiety/depression Plan: CT head revealed interval development of trace, acute subdural hematoma extending from the mid aspect of the head back posteriorly and measuring up to 4 mm thick. No midline shift or mass effect. Prolonged EEG was abnormal with no seizures recorded. No epileptiform activity was present. This EEG demonstrated periodic high amplitude triphasic waves. Triphasic waves in their own are not epileptiform in nature but can be seen in the setting of a metabolic or anoxic encephalopathy. The periodic a day of these triphasic waves can be considered consistent with ictal interictal continue on. The diffuse delta range slowing mentioned above is not epileptiform in nature. In combination, these findings indicate severe diffuse cerebral dysfunction. Clinical correlation is recommended. Consider transfer to higher level of care for continuous EKG monitoring. Discussed with the nursing staff and primary physician. Acyclovir discontinued, as no evidence of encephalitis on CSF. ID also on board. Increase Vimpat from 50 mg twice a day to 100 mg twice a day. Patient needs continuous EEG monitoring. Because of low normal vitamin B12, started her on Vitamin B12 1000mcg IM once then PO after that. MRI Brain with and without contrast revealed no evidence of intracranial mass, acute/subacute infarct or abnormal enhancement. Nonspecific white matter changes, likely related to small vessel ischemic disease. No report of subdural hematoma. Will review MRI with the radiologist. Discussed with patient's nurse in detail. Will defer the management to primary and other specialist. Dr. Manjit Yan to start neurology service in the morning. Time with Patient: Greater than 30
[2023-03-06 03:33] VITALS: PULSE 75
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
--- NOTE | 2023-03-09 15:11 | P.DS ---
Providers Date of admission: 03/01/23 14:27 Expected date of discharge: 03/06/23 Attending physician: Vita Frank MD Consults: 03/01/23 15:14 Consult Physician Routine Consulting Provider: Rudy James Consult Reason/Comments: KAHLIL Do you want consulting provider notified?: Yes 03/01/23 17:18 Consult Physician Routine Consulting Provider: Manjit Yan Consult Reason/Comments: altered mental status Do you want consulting provider notified?: Yes 03/02/23 10:06 Consult Physician Urgent Consulting Provider: James Crawford Consult Reason/Comments: PNA, sepsis Do you want consulting provider notified?: Yes 03/02/23 11:02 Consult Physician Urgent Consulting Provider: Davey Schmitz Consult Reason/Comments: pneumonia Do you want consulting provider notified?: Yes 03/02/23 13:29 Consult Physician Urgent Consulting Provider: Donovan León Consult Reason/Comments: ams, psychosis Do you want consulting provider notified?: Yes Primary care physician: [facility] Course: Final diagnosis Right sided community acquired pneumonia with sepsis present on admission Acute hypoxic respiratory failure secondary to pneumonia Toxic encephalopathy secondary to pneumonia Acute kidney injury secondary to acute tubular necrosis from sepsis, improving Hypernatremia, hypovolemic Leukocytosis Elevated LFT's, trending down History of hypertension History of hyperlipidemia Hypothyroidism Overactive bladder history maintained on oxybutynin Anxiety/Depression hx Bipolar recently placed on abilify outpatient 2 weeks ago Chronic and ongoing nicotinue use hx of substance use GI prophylaxis DVT prophylaxis Full Code Discharge disposition Patient is being transferred in a stable condition with guarded prognosis to [facility]. Patient has been accepted by medicine in the ICU with neurology on consultation. Patient going to tertiary treatment center for continuous EEG monitoring and patient has been placed on mechanical ventil ation. Total time taken is greater than 35 minutes. Hospital course This is a 62-year-old female who was recently admitted with increased altered mentation with concerns of pneumonia versus polysubstance with severe encephalopathy. Initially there were multiple discharges noted in the frontal lobe on EEG with no epileptiform discharges such as seizure-like activity noted. Patient with no significant improvements maintained on Precedex along with sedation and was noted to have a repeat CT showing a very mild subdural hematoma. Neurology following closely patient was intubated yesterday evening to protect airway as patient continued to be altered with no significant improvement. Neurology recommending transfer to tertiary treatment center for continuous EEG monitoring and further neurological evaluation. Family was agreeable and initiated transfer to [facility]. Patient was accepted at the ICU as patient is on mechanical vent. All documents including imagings were copied and sent with the patient along with the disc of the images. Prognosis remains extremely guarded. Physical exam: Gen: This is a 62-year-old female who was intubated on mechanical ventilation and sedated, obese, elderly appearing, ill appearing HEENT: Head is atraumatic, normocephalic. Pupils equal, round. Sclerae is anicteric. NECK: Supple. No JVD. No lymphadenopathy. No thyromegaly. LUNGS: Breath sounds diminished bilaterally with scattered rhonchi No intercostal retractions. HEART: S1, S2 are muffled ABDOMEN: Soft. Bowel sounds are present. No masses. No tenderness. EXTREMITIES: No pedal edema. No calf tenderness. NEUROLOGICAL: Patient is on mechanical ventilation and sedated Please refer to medication reconciliation sheet for a list of medications. The impression and plan of care has been dictated by Yasmine Joseph, Nurse Practitioner as directed. Dr. Clifton MD I have performed a history and examination and MDM of this patient, discussed the same with the dictator, and agree with the dictator's assessment and plan as written ,documented as a scribe. Based on total visit time, I have performed more than 50% of the visit. Patient Condition at Discharge: Serious Plan - Discharge Summary Discharge Rx Participant: No New Discharge Prescriptions: No Action Atorvastatin [Lipitor] 10 mg PO DAILY Multivitamins, Thera [Multivitamin (formulary)] 1 tab PO DAILY Oxybutynin Xl [Ditropan XL] 5 mg PO DAILY Propranolol HCl [Propranolol HCl ER] 60 mg PO DAILY Levothyroxine Sodium [Synthroid] 125 mcg PO DAILY Pantoprazole [Protonix] 40 mg PO AC-BRKFST #30 tablet. ARIPiprazole [Radhalifmeg Maintena] 400 mg IM Q28D LORazepam [Ativan] 0.5 mg PO BID PRN PRN Reason: Anxiety Trihexyphenidyl HCl 5 mg PO BID ARIPiprazole [Abilify] 15 mg PO DAILY Escitalopram [Lexapro] 10 mg PO DAILY [place] Carbonate [Lithobid] 300 mg PO BID Discharge Medication List Atorvastatin [Lipitor] 10 mg PO DAILY 11/05/14 [History] Multivitamins, Thera [Multivitamin (formulary)] 1 tab PO DAILY 07/11/19 [History] Oxybutynin Xl [Ditropan XL] 5 mg PO DAILY 07/11/19 [History] Propranolol HCl [Propranolol HCl ER] 60 mg PO DAILY 07/11/19 [History] Levothyroxine Sodium [Synthroid] 125 mcg PO DAILY 09/12/20 [History] Pantoprazole [Protonix] 40 mg PO AC-BRKFST #30 tablet. 09/14/20 [Rx] ARIPiprazole [Abilify Maintena] 400 mg IM Q28D 03/01/23 [History] ARIPiprazole [Abilify] 15 mg PO DAILY 03/01/23 [History] Escitalopram [Lexapro] 10 mg PO DAILY 03/01/23 [History] LORazepam [Ativan] 0.5 mg PO BID PRN 03/01/23 [History] [place] Carbonate [Lithobid] 300 mg PO BID 03/01/23 [History] Trihexyphenidyl HCl 5 mg PO BID 03/01/23 [History] Follow up Appointment(s)/Referral(s): Devyn Worrell MD [Primary Care Provider] - 1-2 days Activity/Diet/Wound Care/Special Instructions: Patient transferred to [facility] for tertiary treatment center for continuous EEG monitoring and urology consultation Discharge/Stand Alone Forms: [facility] Shelters, Who Do I Call?, Community Resources, Personal Exterior Interior Specialist Discharge Disposition: OTHER INSTITUTION NOT DEFINED
== END 2023-03-06 04:05 | DRG 871 ==
LOC: EC 11:42 → 3SCARD 14:27 → 2SICU 03-02 18:10
PROVIDERS: ADMIT Internal Medicine; ATTEND Internal Medicine
PROC: 009U3ZX Drainage of Spinal Canal, Percutaneous Approach, Diagnostic (ICD-10-PCS; 2023-03-02)
PROC: 3E033XZ Introduction of Vasopressor into Peripheral Vein, Percutaneous Approach (ICD-10-PCS; principal; 2023-03-03)
PROC: 3E0G76Z Introduction of Nutritional Substance into Upper GI, Via Natural or Artificial Opening (ICD-10-PCS; 2023-03-03)
DX: A41.9 Sepsis, unspecified organism (principal); G92.8 Other toxic encephalopathy; J96.01 Acute respiratory failure with hypoxia; N17.0 Acute kidney failure with tubular necrosis; J69.0 Pneumonitis due to inhalation of food and vomit; J18.9 Pneumonia, unspecified organism; S06.5XAA Traumatic subdural hemorrhage with loss of consciousness status unknown, initial encounter; E87.20 Acidosis, unspecified; F05 Delirium due to known physiological condition; I42.9 Cardiomyopathy, unspecified; E87.0 Hyperosmolality and hypernatremia; E87.1 Hypo-osmolality and hyponatremia; I50.22 Chronic systolic (congestive) heart failure; K76.82 Hepatic encephalopathy; I11.0 Hypertensive heart disease with heart failure; F31.9 Bipolar disorder, unspecified; E03.9 Hypothyroidism, unspecified; F25.9 Schizoaffective disorder, unspecified; I95.9 Hypotension, unspecified; E86.0 Dehydration; F17.210 Nicotine dependence, cigarettes, uncomplicated; E78.5 Hyperlipidemia, unspecified; F41.9 Anxiety disorder, unspecified; E86.1 Hypovolemia; N32.81 Overactive bladder; R73.9 Hyperglycemia, unspecified; E87.6 Hypokalemia; R94.01 Abnormal electroencephalogram [EEG]; Z20.822 Contact with and (suspected) exposure to COVID-19; W13.8XXA Fall from, out of or through other building or structure, initial encounter; Y92.009 Unspecified place in unspecified non-institutional (private) residence as the place of occurrence of the external cause; Z79.899 Other long term (current) drug therapy; Z79.890 Hormone replacement therapy; Z91.410 Personal history of adult physical and sexual abuse; Z78.1 Physical restraint status; I25.2 Old myocardial infarction
CPT/HCPCS: 36415; 36600; 51702; 70450; 70553; 71045; 80048; 80053; 80178; 80306; 80320; 81001; 82140; 82607; 82746; 82805; 82945; 83605; 83735; 83873; 84132; 84145; 84157; 84295; 84443; 84484; 85025; 85027; 85610; 85730; 86140; 86592; 87040; 87070; 87205; 87252; 87449; 87529; 87635; 87636; 89050; 93005; 93306; 93880; 94002; 94003; 94640; 94760; 95713; 95816; 96361; 96365; 96366; 96368; 96372; 96375; 99291